=== PATIENT | male | born 1930 | race Caucasian/White ===

== ENCOUNTER 2019-05-29 03:50 | Inpatient (IN) | payer MEDICARE, MEDICAID ==
[~2019-05-29] VITALS: Ht 180.3 cm; Wt 90.7 kg
[2019-05-29] VITALS (19 sets, daily range): BP systolic 84–125; BP diastolic 39–75
[2019-05-29] MEDS ORDERED: Solu-MEDROL 125mg Inj IVP ONE (04:00)
--- NOTE | 2019-05-29 04:00 | NUR ---
ED Nurse Note: Pt brought in by RA from [facility] c/o SOB. As per EMS, pt is desaturating to 85% RA. Pt was placed on non rebreather mask 15L/min, O2 sat 97%. Pt has hx of COPD. Bilateral lungs are clear. Not in any distress. VSS. ERMD at bedside.
--- NOTE | 2019-05-29 04:00 | Emergency Room Report ---
History of Present Illness General Chief Complaint: Dyspnea/Respdistress Source: EMS Present Illness HPI Disclaimer: Please note that this report is being documented using [employer] technology. This can lead to erroneous entry secondary to incorrect interpretation by the dictating instrument. HPI: 88-year-old male with a history of severe dementia, COPD presents from alf facility for evaluation of hypoxia. On morning rounds he was found to be hypoxic with oxygen saturations in the low 80s. They report intermittent cough. No fevers were reported. Patient is nonverbal at baseline with severe dementia. EMS states he was somnolent en route. They gave him 1 breathing treatment without significant improvement. He does improve with additional oxygen to the low 90s. Accompanying paperwork states he is full code. PMH: Dementia, COPD PSH: Pacemaker Allergies: Codeine, Tylenol Social Hx: Unable to obtain Allergies: Coded Allergies: ACETAMINOPHEN (Verified Allergy, Unknown, 05/29/19) HYDROCODONE (Verified Allergy, Unknown, 05/29/19) Review of Systems All Other Systems: limited - Unable to obtain from patient due to clinical condition Physical Exam Vital Signs Date Time Temp Pulse Resp B/P (MAP) Pulse Ox O2 Delivery O2 Flow Rate FiO2 05/29/19 03:52 98.8 99 22 110/50 (70) 83 Room Air General: Somnolent. Arousable to noxious stimuli. Hypoxic on room air HEENT: NC/AT. Edentulous. Dry mucous membranes Chest wall: Pacemaker palpable in left chest wall. Cardiovascular: RRR. S1 and S2 normal. No murmur appreciated Resp: Mild tachypnea. Hypoxic at 83% on room air. Coarse crackles bilaterally. No wheezing. Abdomen: Abdomen is soft, nondistended. Nontender Skin: Intact. No abrasions, laceration or rash over the exposed skin. Surgical scars over the chest are clean dry and intact. MSK: Normal tone and bulk. Moving all extremities. No obvious deformity. Neuro: Somnolent. Arousable to noxious stimuli. GCS 9 - E2, V2, M5 Medical Decision Making Diagnostic Impression: Primary Impression: Respiratory failure with hypoxia Additional Impressions: AMOS (acute kidney injury) Elevated WBC count ER Course 88-year-old male presents from a alf facility for evaluation of hypoxia. Patient remains hypoxic on room air but improves with nonrebreather. Vital signs otherwise within normal limits and he is afebrile. Crackles bilaterally but no wheezes. He did receive 1 breathing treatment en route. Will give steroids and maintain on oxygen. Will send labs including blood gas. Will order antibiotics given the patient's COPD status. Patient will require admission. Laboratory Tests Test 05/29/19 04:08 05/29/19 04:24 05/29/19 04:44 Arterial Blood pH 7.470 (7.350-7.450) Arterial Blood Partial Pressure CO2 30.2 mmHg (35.0-45.0) L Arterial Blood Partial Pressure O2 120.3 mmHg (75.0-100.0) H Arterial Blood HCO3 21.6 mmol/L (22.0-26.0) L Arterial Blood Oxygen Saturation 98.5 % (95-100) Arterial Blood Base Excess -1.2 (-2-2) Fidel Test Positive White Blood Count 19.9 K/UL (4.8-10.8) H Red Blood Count 3.73 M/UL (4.70-6.10) L Hemoglobin 11.6 G/DL (14.2-18.0) L Hematocrit 34.5 % (42.0-52.0) L Mean Corpuscular Volume 92 FL (80-99) Mean Corpuscular Hemoglobin 31.2 PG (27.0-31.0) H Mean Corpuscular Hemoglobin Concent 33.7 G/DL (32.0-36.0) Red Cell Distribution Width 16.4 % (11.6-14.8) H Platelet Count 247 K/UL (150-450) Mean Platelet Volume 5.5 FL (6.5-10.1) L Neutrophils (%) (Auto) % (45.0-75.0) Lymphocytes (%) (Auto) % (20.0-45.0) Monocytes (%) (Auto) % (1.0-10.0) Eosinophils (%) (Auto) % (0.0-3.0) Basophils (%) (Auto) % (0.0-2.0) Differential Total Cells Counted 100 Neutrophils % (Manual) 80 % (45-75) H Lymphocytes % (Manual) 15 % (20-45) L Monocytes % (Manual) 5 % (1-10) Eosinophils % (Manual) 0 % (0-3) Basophils % (Manual) 0 % (0-2) Band Neutrophils 0 % (0-8) Platelet Estimate Adequate Platelet Morphology Normal Sodium Level 140 MMOL/L (136-145) Potassium Level 4.5 MMOL/L (3.5-5.1) Chloride Level 105 MMOL/L (98-107) Carbon Dioxide Level 29 MMOL/L (21-32) Anion Gap 6 mmol/L (5-15) Blood Urea Nitrogen 39 mg/dL (7-18) H Creatinine 2.8 MG/DL (0.55-1.30) H Estimate Glomerular Filtration Rate 21.4 mL/min (>60) Glucose Level 127 MG/DL (74-106) H Calcium Level 8.8 MG/DL (8.5-10.1) Total Bilirubin 0.5 MG/DL (0.2-1.0) Aspartate Amino Transferase (AST) 21 U/L (15-37) Alanine Aminotransferase (ALT) 19 U/L (12-78) Alkaline Phosphatase 104 U/L (46-116) Troponin I 0.066 ng/mL (0.000-0.056) Pro-B-Type Natriuretic Peptide 2241 pg/mL (0-125) H Total Protein 7.1 G/DL (6.4-8.2) Albumin 2.3 G/DL (3.4-5.0) L Globulin 4.8 g/dL Albumin/Globulin Ratio 0.5 (1.0-2.7) L Urine Color Yellow Urine Appearance Clear Urine pH 5 (4.5-8.0) Urine Specific [place] 1.020 (1.005-1.035) Urine Protein 2+ (NEGATIVE) H Urine Glucose (UA) Negative (NEGATIVE) Urine Ketones 1+ (NEGATIVE) H Urine Blood 1+ (NEGATIVE) H Urine Nitrite Negative (NEGATIVE) Urine Bilirubin 1+ (NEGATIVE) H Urine Ictotest Negative (NEGATIVE) Urine Urobilinogen Normal MG/DL (0.0-1.0) Urine Leukocyte Esterase Negative (NEGATIVE) Urine RBC 0-2 /HPF (0 - 0) H Urine WBC 0 /HPF (0 - 0) Urine Squamous Epithelial Cells Few /LPF (NONE/OCC) Urine Bacteria None /HPF (NONE) Microbiology Date/Time Source Procedure Growth Status 05/29/19 04:24 Nasal Nares - Final Complete 05/29/19 04:24 Nasal Nares - Final Complete EKG Diagnostic Results EKG Time: 04:01 Rate: normal Rhythm: NSR Other Impression Sinus rhythm, left axis deviation, interventricular conduction delay. There are inverted T waves in the anterior and lateral leads. No obvious ST segment changes Rhythm Strip Diag. Results Rhythm Strip Time: 04:01 EP Interpretation: yes Rate: 80s Rhythm: NSR, no PVC's, no ectopy Chest X-Ray Diagnostic Results Chest X-Ray Diagnostic Results : Chest X-Ray Ordered: Yes # of Views/Limited/Complete: 1 View Indication: Shortness of Breath EP Interpretation: Yes Interpretation: other - Evidence of prior sternotomy. No obvious infiltrate. Difficult to fully assess the left costophrenic angle. Pacemaker in place. Impression: Other - No obvious infiltrate. Electronically Signed by: Electronically signed by Dr. Bulmaro Springer Reevaluation Time: 05:13 Last Vital Signs Date Time Temp Pulse Resp B/P (MAP) Pulse Ox O2 Delivery O2 Flow Rate FiO2 05/29/19 03:52 98.8 99 22 110/50 (70) 83 Room Air Reevaluation Impression Labs show elevated white count with neutrophil predominance. Antibiotics ordered. Blood gas shows hypoxemia. Will decrease oxygen flow. PCO2 low. No acidosis. Chemistry consistent with acute kidney injury. Troponin slightly above upper limit of normal at 0.06. EKG shows diffuse T wave inversions but no ST segment elevation. We will continue to trend. Will admit the patient to telemetry. Disposition: ADMITTED INPATIENT Condition: Serious Bulmaro Springer MD May 29, 2019 04:00
--- NOTE | 2019-05-29 04:05 | NUR ---
ED Nurse Note: IV line established. Blood specimen collected and sent to lab.
--- NOTE | 2019-05-29 04:11 | NUR ---
ED Nurse Note: Xray at bedside.
--- NOTE | 2019-05-29 04:28 | NUR ---
ED Nurse Note: Urine specimen collected and sent to lab.
[2019-05-29 04:30] LABS: HEMATOCRIT 34.5 % (42.0-52.0); HEMOGLOBIN 11.6 G/DL (14.2-18.0); MEAN CORPUSCULAR VOLUME 92 FL (80-99); PLATELET COUNT 247 K/UL (150-450); RED BLOOD COUNT 3.73 M/UL (4.70-6.10); RED CELL DISTRIBUTION WIDTH 16.4 % (11.6-14.8); WHITE BLOOD COUNT 19.9 K/UL (4.8-10.8)
[2019-05-29 04:44] LABS: ANION GAP 6 mmol/L (5-15); BLOOD UREA NITROGEN 39 mg/dL (7-18); CALCIUM 8.8 MG/DL (8.5-10.1); CARBON DIOXIDE 29 MMOL/L (21-32); CHLORIDE 105 MMOL/L (98-107); CREATININE 2.8 MG/DL (0.55-1.30); POTASSIUM 4.5 MMOL/L (3.5-5.1); SODIUM 140 MMOL/L (136-145)
[2019-05-29] MEDS ORDERED: B COMPLEX1 EACH ORAL (04:56)
[2019-05-29] MEDS ORDERED: LIPITOR20 MG ORAL (04:56)
[2019-05-29] MEDS ORDERED: PLAVIX75 MG ORAL (04:56)
[2019-05-29] MEDS ORDERED: LUMIGAN2.5 ML BOTH EYES (04:56)
[2019-05-29] MEDS ORDERED: FLOMAX0.4 MG ORAL (04:56)
[2019-05-29] MEDS ORDERED: LOSARTAN POTASS50 MG ORAL (04:56)
[2019-05-29] MEDS ORDERED: DEPAKOTE250 MG PO (04:56)
[2019-05-29] MEDS ORDERED: ACTOS15 MG ORAL (04:56)
[2019-05-29] MEDS ORDERED: IPRATROPIU0.2 MG/1 M HHN (04:56)
[2019-05-29] MEDS ORDERED: DOCUSATE SODIU100 MG ORAL (04:56)
[2019-05-29] MEDS ORDERED: VASCEPA1 GM PO (04:56)
[2019-05-29] MEDS ORDERED: METOPROLOL TART25 MG ORAL (04:56)
[2019-05-29] MEDS ORDERED: INCRUSE ELLI62.5 MCG IH (04:56)
[2019-05-29] MEDS ORDERED: TRADJENTA5 MG PO (04:56)
[2019-05-29] MEDS ORDERED: VITAMIN D-32000 UNI2 PO (04:56)
[2019-05-29] MEDS ORDERED: FERROUS SULFAT325 MG ORAL (04:56)
[2019-05-29] MEDS ORDERED: DONEPEZIL HCL10 M2 ORAL (04:56)
[2019-05-29] MEDS ORDERED: LIDODERM700 M1 TOPIC (04:56)
[2019-05-29] MEDS ORDERED: MELATONIN5 M5 ORAL (04:56)
[2019-05-29 04:57] LABS: ALANINE AMINOTRANSFERASE 19 U/L (12-78); ALBUMIN 2.3 G/DL (3.4-5.0); ALBUMIN/GLOBULIN RATIO 0.5 (1.0-2.7); ALKALINE PHOSPHATASE 104 U/L (46-116); ASPARTATE AMINO TRANSFERASE 21 U/L (15-37); BILIRUBIN,TOTAL 0.5 MG/DL (0.2-1.0)
[2019-05-29 05:11] LABS: APPEARANCE,URINE CLEAR; BILIRUBIN, URINE 1+ (NEGATIVE); GLUCOSE, URINE (UA) NEGATIVE (NEGATIVE); KETONES,URINE 1+ (NEGATIVE); LEUKOCYTE ESTERASE ,URINE NEGATIVE (NEGATIVE); NITRITE,URINE NEGATIVE (NEGATIVE); PH,URINE 5 (4.5-8.0); PROTEIN,URINE 2+ (NEGATIVE); UROBILINOGEN,URINE NORMAL MG/DL (0.0-1.0)
[2019-05-29 05:14] LABS: COLOR,URINE YELLOW
[2019-05-29] MEDS ORDERED: Azithromycin 500 MG in NS 275 ML IV ONE (05:15)
[2019-05-29] MEDS ORDERED: cefTRIAXone 1 GM in NS 55 ML IVPB ONE (05:15)
[2019-05-29] MEDS ORDERED: Azithromycin 500mg Inj IV ONE (05:31)
--- NOTE | 2019-05-29 05:53 | NUR ---
ER Nurse Note: Contact information: serafin Pizarro,
[2019-05-29] MEDS ORDERED: LORazepam Inj 2mg/ml 1ml IV ONE (06:00)
[2019-05-29] MEDS ORDERED: LORazepam Inj 2mg/ml 1ml ONE (06:10)
--- NOTE | 2019-05-29 07:57 | NUR ---
ED Nurse Note: Report given to Nereida RN, endorsed all plan of care to Yasmine POLLOCK.
--- NOTE | 2019-05-29 08:05 | NUR ---
TRANSFER TO FLOOR: Patient transferred to TELEMETRY as ordered, per Dr. Muniz. Report given to Nereida RN. Belonging list and medication list given to receiving RN. Family and or S/O informed of transfer.
--- NOTE | 2019-05-29 08:30 | NUR ---
NURSE NOTES: Received report from Stephanie Fernandes. PAtient arrived to the floor @0800 transported via gurney with 2 Staff. PAtient is very lethargic arousable to Deep pain only. Mouth breathing with simple mask at 7 L/min. Noted with scattered ronchi/crackles all throughout. radiation monitor place. Vital signs obtained SBP low 90's. Patient positioned for comfort and call placed to DR. Muniz. Fall precautions in place.
--- NOTE | 2019-05-29 09:05 | General Progress Note ---
Subjective Date patient seen: May 29, 2019 Time patient seen: 08:40 Allergies: Coded Allergies: ACETAMINOPHEN (Verified Allergy, Unknown, 05/29/19) HYDROCODONE (Verified Allergy, Unknown, 05/29/19) Subjective Full dictation to follow. Objective Last 24 Hour Vital Signs Date Time Temp Pulse Resp B/P (MAP) Pulse Ox O2 Delivery O2 Flow Rate FiO2 05/29/19 08:05 98.5 79 21 112/54 98 Simple Mask 7.0 05/29/19 07:30 98.5 79 20 112/54 98 Simple Mask 7.0 05/29/19 06:39 98.5 78 20 109/44 100 Simple Mask 15.0 05/29/19 04:00 99.1 99 22 110/50 97 Non-Rebreather 15.0 05/29/19 04:00 99 22 Non-Rebreather 15.0 05/29/19 03:52 98.8 99 22 110/50 (70) 83 Room Air Intake and Output 05/28/19 05/29/19 19:00 07:00 Intake Total 2660 ml Balance 2660 ml Intake IV Total 2660 ml # Voids 1 Laboratory Tests 05/29/19 04:08: Arterial Blood pH 7.470H, Arterial Blood Partial Pressure CO2 30.2L, Arterial Blood Partial Pressure O2 120.3H, Arterial Blood HCO3 21.6L, Arterial Blood Oxygen Saturation 98.5, Arterial Blood Base Excess -1.2, Fidel Test Positive 05/29/19 04:24: White Blood Count 19.9H, Red Blood Count 3.73L, Hemoglobin 11.6L, Hematocrit 34.5L, Mean Corpuscular Volume 92, Mean Corpuscular Hemoglobin 31.2H, Mean Corpuscular Hemoglobin Concent 33.7, Red Cell Distribution Width 16.4H, Platelet Count 247, Mean Platelet Volume 5.5L, Neutrophils (%) (Auto) , Lymphocytes (%) (Auto) , Monocytes (%) (Auto) , Eosinophils (%) (Auto) , Basophils (%) (Auto) , Differential Total Cells Counted 100, Neutrophils % ( Manual) 80H, Lymphocytes % (Manual) 15L, Monocytes % (Manual) 5, Eosinophils % ( Manual) 0, Basophils % (Manual) 0, Band Neutrophils 0, Platelet Estimate Adequate, Platelet Morphology Normal, Sodium Level 140, Potassium Level 4.5, Chloride Level 105, Carbon Dioxide Level 29, Anion Gap 6, Blood Urea Nitrogen 39H, Creatinine 2.8H, Estimat Glomerular Filtration Rate 21.4, Glucose Level 127H, Calcium Level 8.8, Total Bilirubin 0.5, Aspartate Amino Transf (AST/SGOT) 21, Alanine Aminotransferase (ALT/SGPT) 19, Alkaline Phosphatase 104, Troponin I 0.066H, Pro-B-Type Natriuretic Peptide 2241H, Total Protein 7.1, Albumin 2.3L , Globulin 4.8, Albumin/Globulin Ratio 0.5L 05/29/19 04:44: Urine Color Yellow, Urine Appearance Clear, Urine pH 5, Urine Specific [place] 1.020, Urine Protein 2+H, Urine Glucose (UA) Negative, Urine Ketones 1+H, Urine Blood 1+H, Urine Nitrite Negative, Urine Bilirubin 1+H, Urine Ictotest Negative , Urine Urobilinogen Normal, Urine Leukocyte Esterase Negative, Urine RBC 0-2H, Urine WBC 0, Urine Squamous Epithelial Cells Few, Urine Bacteria None Height (Feet): 5 Height (Inches): 11.00 Weight (Pounds): 200 Ronaldo Muniz MD May 29, 2019 09:05
--- NOTE | 2019-05-29 09:30 | NUR ---
NURSE NOTES: Dr. Muniz in to see patient admission orders obtained and carried out. Md aware patient mental status and stated it moght be due to the ativan that he received from ER. 250ml saline bolus given as ordered by .
--- NOTE | 2019-05-29 09:41 | Cardiac Electrophysiology PN ---
Subjective Subjective [id number] Objective Last 24 Hour Vital Signs Date Time Temp Pulse Resp B/P (MAP) Pulse Ox O2 Delivery O2 Flow Rate FiO2 05/29/19 08:05 98.5 79 21 112/54 98 Simple Mask 7.0 05/29/19 07:30 98.5 79 20 112/54 98 Simple Mask 7.0 05/29/19 06:39 98.5 78 20 109/44 100 Simple Mask 15.0 05/29/19 04:00 99.1 99 22 110/50 97 Non-Rebreather 15.0 05/29/19 04:00 99 22 Non-Rebreather 15.0 05/29/19 03:52 98.8 99 22 110/50 (70) 83 Room Air Intake and Output 05/28/19 05/29/19 19:00 07:00 Intake Total 2660 ml Balance 2660 ml Intake IV Total 2660 ml # Voids 1 Laboratory Tests Test 05/29/19 04:08 05/29/19 04:24 05/29/19 04:44 Arterial Blood pH 7.470 (7.350-7.450) Arterial Blood Partial Pressure CO2 30.2 mmHg (35.0-45.0) L Arterial Blood Partial Pressure O2 120.3 mmHg (75.0-100.0) H Arterial Blood HCO3 21.6 mmol/L (22.0-26.0) L Arterial Blood Oxygen Saturation 98.5 % (95-100) Arterial Blood Base Excess -1.2 (-2-2) Fidel Test Positive White Blood Count 19.9 K/UL (4.8-10.8) H Red Blood Count 3.73 M/UL (4.70-6.10) L Hemoglobin 11.6 G/DL (14.2-18.0) L Hematocrit 34.5 % (42.0-52.0) L Mean Corpuscular Volume 92 FL (80-99) Mean Corpuscular Hemoglobin 31.2 PG (27.0-31.0) H Mean Corpuscular Hemoglobin Concent 33.7 G/DL (32.0-36.0) Red Cell Distribution Width 16.4 % (11.6-14.8) H Platelet Count 247 K/UL (150-450) Mean Platelet Volume 5.5 FL (6.5-10.1) L Neutrophils (%) (Auto) % (45.0-75.0) Lymphocytes (%) (Auto) % (20.0-45.0) Monocytes (%) (Auto) % (1.0-10.0) Eosinophils (%) (Auto) % (0.0-3.0) Basophils (%) (Auto) % (0.0-2.0) Differential Total Cells Counted 100 Neutrophils % (Manual) 80 % (45-75) H Lymphocytes % (Manual) 15 % (20-45) L Monocytes % (Manual) 5 % (1-10) Eosinophils % (Manual) 0 % (0-3) Basophils % (Manual) 0 % (0-2) Band Neutrophils 0 % (0-8) Platelet Estimate Adequate Platelet Morphology Normal Sodium Level 140 MMOL/L (136-145) Potassium Level 4.5 MMOL/L (3.5-5.1) Chloride Level 105 MMOL/L (98-107) Carbon Dioxide Level 29 MMOL/L (21-32) Anion Gap 6 mmol/L (5-15) Blood Urea Nitrogen 39 mg/dL (7-18) H Creatinine 2.8 MG/DL (0.55-1.30) H Estimat Glomerular Filtration Rate 21.4 mL/min (>60) Glucose Level 127 MG/DL (74-106) H Calcium Level 8.8 MG/DL (8.5-10.1) Total Bilirubin 0.5 MG/DL (0.2-1.0) Aspartate Amino Transf (AST/SGOT) 21 U/L (15-37) Alanine Aminotransferase (ALT/SGPT) 19 U/L (12-78) Alkaline Phosphatase 104 U/L (46-116) Troponin I 0.066 ng/mL (0.000-0.056) Pro-B-Type Natriuretic Peptide 2241 pg/mL (0-125) H Total Protein 7.1 G/DL (6.4-8.2) Albumin 2.3 G/DL (3.4-5.0) L Globulin 4.8 g/dL Albumin/Globulin Ratio 0.5 (1.0-2.7) L Urine Color Yellow Urine Appearance Clear Urine pH 5 (4.5-8.0) Urine Specific [place] 1.020 (1.005-1.035) Urine Protein 2+ (NEGATIVE) H Urine Glucose (UA) Negative (NEGATIVE) Urine Ketones 1+ (NEGATIVE) H Urine Blood 1+ (NEGATIVE) H Urine Nitrite Negative (NEGATIVE) Urine Bilirubin 1+ (NEGATIVE) H Urine Ictotest Negative (NEGATIVE) Urine Urobilinogen Normal MG/DL (0.0-1.0) Urine Leukocyte Esterase Negative (NEGATIVE) Urine RBC 0-2 /HPF (0 - 0) H Urine WBC 0 /HPF (0 - 0) Urine Squamous Epithelial Cells Few /LPF (NONE/OCC) Urine Bacteria None /HPF (NONE) Microbiology Date/Time Source Procedure Growth Status 05/29/19 04:24 Nasal Nares - Final Complete 05/29/19 04:24 Nasal Nares - Final Complete 05/29/19 04:00 Rectum Received Sunny Cunningham MD May 29, 2019 09:40
[2019-05-29] MEDS ORDERED: Ipratropium 0.02% Inh Soln 2.5ml UD HHN PRN (10:00)
[2019-05-29] MEDS: Heparin 5000 units/ml inj SUBQ SCH ×2 (10:09→21:34)
--- NOTE | 2019-05-29 10:20 | NUR ---
NURSE NOTES: Dr. Cunningham seen patient aware patients B/P new ordered obned to give addiotional dose of 500 ml IV bolus of saline. B/p Improving. Will follow.
[2019-05-29] MEDS: NovoLOG Insulin Flexpen SUBQ SCH ×3 (11:30→21:00)
--- NOTE | 2019-05-29 12:22 | Diagnostic Imaging Report ---
Indication: Shortness of breath Technique: One view of the chest Comparison: none Findings: There is a left chest pacemaker. There are median sternotomy sutures. The left lateral hemidiaphragm is obscured. The heart is upper limits normal in size. Area of sclerosis is seen in the proximal right humerus. Impression: The posterior left lateral hemidiaphragm, parenchymal and/or pleural disease of the left lung base possible. No acute process otherwise Sclerotic lesion of the proximal humerus, most likely a bone island, less likely osteoblastic metastasis
--- NOTE | 2019-05-29 12:25 | NUR ---
CASE MANAGEMENT:REVIEW 88YR OLD MALE BIBA FROM [facility] CC: SOB. SI: RESPIRATORY FAILURE. AMOS 99.1 99 22 109/44 83% ON RA WBC+19.9 BUN+39 CR+2.8 TROPONIN(+) 0.066 IS: PLACED ON NON REBREATHER IV SOLUMEDROL 1L NS BOLUS IV ROCEPHIN IV ATIVAN CHEST XRAY : TO TELEMETRY DCP: FROM [facility] interqual criteria met
--- NOTE | 2019-05-29 12:30 | NUR ---
NURSE NOTES: Dr. Rich in to see patient. order received STAT ABG. resulted messaged left to MD. Will monitor
[2019-05-29 12:59] LABS: HEMATOCRIT 32.3 % (42.0-52.0); HEMOGLOBIN 10.2 G/DL (14.2-18.0); MEAN CORPUSCULAR VOLUME 94 FL (80-99); PLATELET COUNT 174 K/UL (150-450); RED BLOOD COUNT 3.44 M/UL (4.70-6.10); RED CELL DISTRIBUTION WIDTH 16.8 % (11.6-14.8); WHITE BLOOD COUNT 13.2 K/UL (4.8-10.8)
[2019-05-29] MEDS: Albuterol/Ipratropium 3ml neb HHN SCH ×2 (13:00→19:19)
[2019-05-29] MEDS: Docusate 100mg cap ORAL SCH ×2 (13:00→18:00)
--- NOTE | 2019-05-29 13:18 | Infectious Diseases Prog Note ---
Assessment/Plan Problems: (1) COPD (chronic obstructive pulmonary disease) Assessment & Plan: with exacerbation , will upgrade his antibiotics to zosyn and zyvox and stop ceftriaxone and zithromax empirically , send sputum culture (2) Leukocytosis Assessment & Plan: possible sepsis . on ceftriaxone and zithromax will upgrade his antibiotics to zosyn and zyvox pending blood culture (3) AMOS (acute kidney injury) Assessment & Plan: continue hydration, with close monitoring of renal function , avoid nephrotoxics (4) Respiratory failure with hypoxia Assessment & Plan: suspect due to the above, will order V/Q scan to rule out PE as an etiology , and CT chest to rule out lungs pathology , recommend pulmonary eval Subjective Allergies: Coded Allergies: ACETAMINOPHEN (Verified Allergy, Unknown, 05/29/19) HYDROCODONE (Verified Allergy, Unknown, 05/29/19) Objective Vital Signs Last 24 Hour Vital Signs Date Time Temp Pulse Resp B/P (MAP) Pulse Ox O2 Delivery O2 Flow Rate FiO2 05/29/19 12:00 8.0 05/29/19 08:05 98.5 79 21 112/54 98 Simple Mask 7.0 05/29/19 08:00 Simple Mask 8.0 05/29/19 07:30 98.5 79 20 112/54 98 Simple Mask 7.0 05/29/19 06:39 98.5 78 20 109/44 100 Simple Mask 15.0 05/29/19 04:00 99.1 99 22 110/50 97 Non-Rebreather 15.0 05/29/19 04:00 99 22 Non-Rebreather 15.0 05/29/19 03:52 98.8 99 22 110/50 (70) 83 Room Air Height (Feet): 5 Height (Inches): 11.00 Weight (Pounds): 200 Microbiology Date/Time Source Procedure Growth Status 05/29/19 04:24 Nasal Nares - Final Complete 05/29/19 04:24 Nasal Nares - Final Complete 05/29/19 04:00 Rectum Received Laboratory Tests Test 05/29/19 04:08 05/29/19 04:24 05/29/19 04:44 05/29/19 12:12 Arterial Blood pH 7.470 (7.350-7.450) 7.331 (7.350-7.450) Arterial Blood Partial Pressure CO2 30.2 mmHg (35.0-45.0) L 39.6 mmHg (35.0-45.0) Arterial Blood Partial Pressure O2 120.3 mmHg (75.0-100.0) H 49.6 mmHg (75.0-100.0) Arterial Blood HCO3 21.6 mmol/L (22.0-26.0) L 20.5 mmol/L (22.0-26.0) L Arterial Blood Oxygen Saturation 98.5 % (95-100) 82.5 % (95-100) *L Arterial Blood Base Excess -1.2 (-2-2) -5.0 (-2-2) L Fidel Test Positive Positive White Blood Count 19.9 K/UL (4.8-10.8) H Red Blood Count 3.73 M/UL (4.70-6.10) L Hemoglobin 11.6 G/DL (14.2-18.0) L Hematocrit 34.5 % (42.0-52.0) L Mean Corpuscular Volume 92 FL (80-99) Mean Corpuscular Hemoglobin 31.2 PG (27.0-31.0) H Mean Corpuscular Hemoglobin Concent 33.7 G/DL (32.0-36.0) Red Cell Distribution Width 16.4 % (11.6-14.8) H Platelet Count 247 K/UL (150-450) Mean Platelet Volume 5.5 FL (6.5-10.1) L Neutrophils (%) (Auto) % (45.0-75.0) Lymphocytes (%) (Auto) % (20.0-45.0) Monocytes (%) (Auto) % (1.0-10.0) Eosinophils (%) (Auto) % (0.0-3.0) Basophils (%) (Auto) % (0.0-2.0) Differential Total Cells Counted 100 Neutrophils % (Manual) 80 % (45-75) H Lymphocytes % (Manual) 15 % (20-45) L Monocytes % (Manual) 5 % (1-10) Eosinophils % (Manual) 0 % (0-3) Basophils % (Manual) 0 % (0-2) Band Neutrophils 0 % (0-8) Platelet Estimate Adequate Platelet Morphology Normal Sodium Level 140 MMOL/L (136-145) Potassium Level 4.5 MMOL/L (3.5-5.1) Chloride Level 105 MMOL/L (98-107) Carbon Dioxide Level 29 MMOL/L (21-32) Anion Gap 6 mmol/L (5-15) Blood Urea Nitrogen 39 mg/dL (7-18) H Creatinine 2.8 MG/DL (0.55-1.30) H Estimat Glomerular Filtration Rate 21.4 mL/min (>60) Glucose Level 127 MG/DL (74-106) H Calcium Level 8.8 MG/DL (8.5-10.1) Total Bilirubin 0.5 MG/DL (0.2-1.0) Aspartate Amino Transf (AST/SGOT) 21 U/L (15-37) Alanine Aminotransferase (ALT/SGPT) 19 U/L (12-78) Alkaline Phosphatase 104 U/L (46-116) Troponin I 0.066 ng/mL (0.000-0.056) Pro-B-Type Natriuretic Peptide 2241 pg/mL (0-125) H Total Protein 7.1 G/DL (6.4-8.2) Albumin 2.3 G/DL (3.4-5.0) L Globulin 4.8 g/dL Albumin/Globulin Ratio 0.5 (1.0-2.7) L Urine Color Yellow Urine Appearance Clear Urine pH 5 (4.5-8.0) Urine Specific [place] 1.020 (1.005-1.035) Urine Protein 2+ (NEGATIVE) H Urine Glucose (UA) Negative (NEGATIVE) Urine Ketones 1+ (NEGATIVE) H Urine Blood 1+ (NEGATIVE) H Urine Nitrite Negative (NEGATIVE) Urine Bilirubin 1+ (NEGATIVE) H Urine Ictotest Negative (NEGATIVE) Urine Urobilinogen Normal MG/DL (0.0-1.0) Urine Leukocyte Esterase Negative (NEGATIVE) Urine RBC 0-2 /HPF (0 - 0) H Urine WBC 0 /HPF (0 - 0) Urine Squamous Epithelial Cells Few /LPF (NONE/OCC) Urine Bacteria None /HPF (NONE) Test 05/29/19 12:15 White Blood Count Pending Red Blood Count Pending Hemoglobin Pending Hematocrit Pending Mean Corpuscular Volume Pending Mean Corpuscular Hemoglobin Pending Mean Corpuscular Hemoglobin Concent Pending Red Cell Distribution Width Pending Platelet Count Pending Mean Platelet Volume Pending Neutrophils (%) (Auto) Pending Lymphocytes (%) (Auto) Pending Monocytes (%) (Auto) Pending Eosinophils (%) (Auto) Pending Basophils (%) (Auto) Pending Sodium Level Pending Potassium Level Pending Chloride Level Pending Carbon Dioxide Level Pending Blood Urea Nitrogen Pending Creatinine Pending Estimat Glomerular Filtration Rate Pending Glucose Level Pending Calcium Level Pending Troponin I Pending Pro-B-Type Natriuretic Peptide Pending Current Medications Medications (Trade) Dose Ordered Sig/Elizabeth Route PRN Reason Start Time Stop Time Status Last Admin Dose Admin Albuterol/ Ipratropium (Albuterol/ Ipratropium) 3 ml Q6HRT HHN 05/29/19 13:00 06/03/19 12:59 Aspirin (ASA) 81 mg DAILY ORAL 05/30/19 09:00 06/29/19 08:59 Atorvastatin Calcium (Lipitor) 20 mg BEDTIME ORAL 05/29/19 21:00 06/28/19 20:59 Azithromycin 500 mg/Dextrose 275 ml @ 275 mls/hr Q24HRS IV 05/30/19 09:00 06/05/19 09:59 Ceftriaxone Sodium 1 gm/ Dextrose 55 ml @ 110 mls/hr Q24H IVPB 05/30/19 08:00 06/06/19 07:59 Clopidogrel Bisulfate (Plavix) 75 mg DAILY ORAL 05/30/19 09:00 06/29/19 08:59 Dextrose (Dextrose 50%) 25 ml Q30M PRN IV Hypoglycemia 05/29/19 08:45 06/28/19 08:44 Dextrose (Dextrose 50%) 50 ml Q30M PRN IV Hypoglycemia 05/29/19 08:45 06/28/19 08:44 Divalproex Sodium (Depakote Sprinkles) 125 mg BID ORAL 05/29/19 18:00 06/28/19 17:59 Docusate Sodium (Colace) 100 mg THREE TIMES A DAY ORAL 05/29/19 13:00 06/28/19 12:59 Donepezil HCl (Aricept) 10 mg DAILY ORAL 05/30/19 09:00 06/29/19 08:59 Heparin Sodium (Porcine) (Heparin 5000 units/ml) 5,000 units EVERY 12 HOURS SUBQ 05/29/19 09:00 06/28/19 08:59 05/29/19 10:09 Insulin Aspart (NovoLOG) BEFORE MEALS AND HS SUBQ 05/29/19 11:30 06/28/19 11:29 Ipratropium [place] (Atrovent) 500 mcg Q6H PRN HHN Shortness of Breath 05/29/19 10:00 06/03/19 09:59 Lidocaine (Lidoderm 5% PATCH) 1 patch DAILY TDERMAL 05/30/19 09:00 06/29/19 08:59 Methylprednisolone Sodium Succinate (Solu-MEDROL) 40 mg EVERY 12 HOURS IVP 05/29/19 21:00 06/28/19 20:59 Metoprolol Tartrate (Lopressor) 25 mg EVERY 12 HOURS ORAL 05/29/19 21:00 06/28/19 20:59 Sodium Chloride 1,000 ml @ 50 mls/hr Q20H IV 05/29/19 12:00 06/28/19 11:59 05/29/19 12:17 Tamsulosin HCl (Flomax) 0.4 mg DAILY ORAL 05/30/19 09:00 06/29/19 08:59 Melina Jones M.D. May 29, 2019 13:18
--- NOTE | 2019-05-29 13:22 | NUR ---
NURSE NOTES: Dr. Dunham aware of ABG results. NO new orders. PAtient remains on simple mask @ 8L now O2 sat 94%
[2019-05-29 13:25] LABS: ANION GAP 9 mmol/L (5-15); BLOOD UREA NITROGEN 43 mg/dL (7-18); CALCIUM 8.3 MG/DL (8.5-10.1); CARBON DIOXIDE 23 MMOL/L (21-32); CHLORIDE 108 MMOL/L (98-107); CREATININE 2.2 MG/DL (0.55-1.30); POTASSIUM 4.4 MMOL/L (3.5-5.1); SODIUM 140 MMOL/L (136-145)
--- NOTE | 2019-05-29 13:34 | NUR ---
Spoke with charge preparation technician Evelyn regarding V/Q scan. At this time, pt is unable to tolerate scan.
--- NOTE | 2019-05-29 16:12 | NUR ---
ST NOTES: REFERRED FOR SWALLOW EVAL BY DR GOODMAN, SEE REPORT. DYSPHAGIA RISK FACTORS FOR THIS ADVANCED AGED 88 Y.O.M.: ACUTE ISSUES: AMS, RESP FAILURE AND DISTRESS WITH HYPOXIA (SATS TO LOW 80s) AND PLACED ON NON-REBREATHER, NOW ON SIMPLE MASK WITH RESP RATE OF 20 BPM, SP02 98%, ON 8 LITERS OF 02, LUNGS HAVE CRACKLES AND BILATERAL WHEEZE AND HAS INTERMITTENT COUGH AND CXR NEG FOR ACUTE PROCESS, ALBUMIN LOW 3.0, AMOS H/O DYSPHAGIA, SEVERE DEMENTIA (NONVERBAL) FROM ALZHEIMER'S DZ, COPD, RECENT MEDS FOR PNA AND PAROTITIS (05/17/19), PSYCH MEDS DEPAKOTE FOR LABILE MOOD, DM2, PVD, AK/CARDIAC PACEMAKER, HTN. AT SNF ON A FORTIFIED PUREED AND NECTAR THICK LIQUID DIET (NO STRAW)ADN SEEN BY FOR DYSPHAGIA MANAGEMENT AND TX. PER POLST OK TO HAVE DESK MANAGER TUBE FEEDINGS IF NEEDS. PATIENT IS NOW NPO EXCEPT ICE CHIPS AND MEDS (NOT GIVEN) INITIAL IMPRESSIONS NOT ALERT FOR PO TRIALS NOR MEALS AND MOUTH BREATHING WITH SIMPLE MASK NO NEED FOR ORAL SUCTION AT THIS TIME HIGH RISK FOR PERSISTENT OR WORSENED OROPHARYNGEAL DYSPHAGIA HIGH RISK FOR SILENT ASPIRATION GIVEN ALZHEIMER'S DZ DEMENTIA DX RECOMMENDATIONS GIVEN HIS POLST STATES OK TO HAVE TUBE FEEDINGS, CONSIDER TEMPORARY NONORAL FEEDINGS FOR MEDS AND FORMULA PER RD (QUANG ARCE. ORAL CARE PRN WILL COMPLETE MODIFIED BARIUM SWALLOW STUDY WHEN READY TO ASSESS SWALLOW, DETERMINE SILENT ASPIRATION RISK/ETIOLOGY, AND ATTEMPT TRIAL TX AND FOR LIKELY ORAL GRAT AND COMFORT FEEDING SINCE HE HAS SEVERE DEMENTIA. SKILLED DYSPHAGIA MANAGEMENT AND TX AND COG-COM EVAL/TX (BASELINE NONVERBAL). EDUCATED/TRAINED RN IN POSTED ORAL CARE AND ASP PREC FOR TUBE FEEDINGS WHEN RUNNING.
--- NOTE | 2019-05-29 16:15 | Consultation ---
DATE OF CONSULTATION: 05/29/2019 CARDIOLOGY CONSULTATION CONSULTING PHYSICIAN: Sunny Cunningham M.D. REFERRING PHYSICIAN: Ronaldo Muniz M.D. REASON FOR CONSULTATION: Elevated troponin in a patient with history of coronary artery bypass graft as well as evaluation of the patient's pacemaker. HISTORY OF PRESENT ILLNESS: The patient is a 88-year-old [place]ian gentleman with severe dementia who is a penitentiary patient as well as history of COPD and history of coronary artery bypass graft more than 20 years ago as well as history of pacemaker placement in the past who was brought in from nursing facility for hypoxemia. The patient's saturation was in the low 80s and the patient had intermittent cough. The patient is nonverbal at baseline due to severe dementia. The patient was admitted. His troponin turned out to be become positive and a Cardiology consultation was obtained for further evaluation. At the time of my evaluation, the patient is nonverbal. The son is at the bedside, is not able to provide any information. REVIEW OF SYSTEMS: Cannot be obtained due to severe dementia. PAST MEDICAL HISTORY: As mentioned above. FAMILY HISTORY: Noncontributory. SOCIAL HISTORY: He lives in penitentiary. Does not smoke or drink alcohol. PHYSICAL EXAMINATION: VITAL SIGNS: Blood pressure 112/54, pulse 79, respirations 20, temperature 98.5. HEAD AND NECK: Shows no JVD. LUNGS: Coarse rhonchi. CARDIOVASCULAR: Regular S1 and S2 with no gallop or murmur. ABDOMEN: Soft. EXTREMITIES: No pitting edema. His pacemaker is in left subclavian and sternotomy scar is intact. LABORATORY AND DIAGNOSTIC DATA: His labs show sodium 140, potassium 4.5, BUN of 39, creatinine 2.8, and glucose 127. Troponin is 0.066. BNP is 2241. White count is 19.9, hemoglobin is 11.7, hematocrit 34.5, platelet count of 247. EKG shows sinus rhythm with complete right bundle-branch block and left anterior fascicular block, old inferior wall infarct. ASSESSMENT AND PLAN: 1. Non-ST elevation myocardial infarction likely type 2 in view of the patient's renal failure. This is likely due to demand ischemia in view of patient's sepsis, white count of 20,000. The patient also has renal failure with creatinine of 2.8. We will completely rule out myocardial infarction protocol, get an echocardiogram, and repeat EKG. At this time, we will treat the patient medically with aspirin, beta-ana, and statin. 2. Status post pacemaker. We will have to find out the brand as the son does not know the brand of the pacemaker and the patient is nonverbal. 3. Sepsis, COPD, pneumonia. The patient is on ceftriaxone, azithromycin. 4. Advanced dementia. Thank you very much, Dr. Muniz, for allowing me to participate in the care of this patient. Please do not hesitate to contact me for any questions regarding my evaluation. Sincerely, Sunny Cunningham M.D. DR: Angel Luis JOB#: [id number] CC:
--- NOTE | 2019-05-29 17:00 | NUR ---
NURSE NOTES: Dr. Marks made aware of ST recommendations to insert NGT. MD agreed recommendations.
[2019-05-29] MEDS: Piperacillin/Tazobactam 3.375 GM in NS 110 ML IVPB SCH (17:19)
--- NOTE | 2019-05-29 17:26 | Diagnostic Imaging Report ---
Clinical Indication: Chronic obstructive pulmonary disease with exacerbation, leukocytosis Technique: Spiral acquisitions obtained through the chest. No IV contrast utilized, . Multiplanar reconstructions generated. Total dose length product mGycm. CTDIvol(s) mGy. Dose reduction achieved using automated exposure control Comparison: none Findings:There is some image degradation due to respiratory motion artifact. Consolidation and atelectasis are seen at both lung bases, slightly more extensive on the left than on the right. Mild interstitial congestion is seen bilaterally diffusely. No definite pleural fluid demonstrated. The heart size is upper limits of normal. No pericardial effusion. Pacemaker is noted. Calcified granulomatous nodes are seen in the left pulmonary hilum. The included portions of the thyroid are unremarkable. No mediastinal or hilar mass or adenopathy demonstrated. No axillary or chest wall mass or adenopathy. There are median sternotomy sutures. The bones demonstrate an osteosclerotic lesion at the right humeral head neck junction. There are degenerative changes of the thoracic spine. The included upper abdominal anatomy demonstrates cholelithiasis. The gallbladder is somewhat distended, but there is no wall thickening. There is prominent colonic fecal material. There is an accessory splenule.. Impression: Bilateral basilar infiltrates and atelectasis Mild interstitial congestion bilaterally Evidence of old granulomatous disease Pacemaker Evidence of prior median sternotomy Right humeral osteoporotic lesion, most likely a benign bone island. Osteoblastic metastasis is not completely excludable but deemed less likely Cholelithiasis Possible constipation. Degenerative spondylosis The CT scanner at [facility] is accredited by the [employer] and the scans are performed using protocols designed to limit radiation exposure to as low as reasonably achievable to attain images of sufficient resolution adequate for diagnostic evaluation.
--- NOTE | 2019-05-29 17:30 | Consultation ---
DATE OF CONSULTATION: 05/29/2019 INFECTIOUS DISEASES CONSULTATION CONSULTING PHYSICIAN: Melina Jones M.D. REQUESTING PHYSICIAN: Ronaldo Muniz M.D. REASON FOR CONSULTATION: Pneumonia, sepsis. Recommendation for antibiotics treatment. HISTORY OF PRESENT ILLNESS: The patient is an 88-year-old male with past medical history of dementia, chronic obstructive pulmonary disease, cardiac arrhythmia status post pacemaker placement was sent from [facility] for hypoxemia, cough productive, and altered mental status. The patient as per the report from his facility was found to be hypoxemic with low oxygen saturation around 80% and had intermittent cough productive. No fever was reported at his facility. The patient is nonverbal at the baseline with severe dementia and was found altered when the paramedics arrived. The patient received nebulizer treatment on the scene without significant improvement with oxygen sat only low 90% so he was brought into the emergency room for evaluation and management. His O2 saturation was 83% on room air in the ER with pulse of 99 and temperature of 98.8 concerning for sepsis. WBC also were elevated suggestive of sepsis. Chest x-ray did not did not show any acute infiltration. The patient was started on ceftriaxone and Zithromax, admitted to the telemetry unit and Infectious Disease consultation was requested for antibiotics treatment and further care. The patient was seen and examined. He is altered, unresponsive, coughing, congested, does not follow any commands. REVIEW OF SYSTEMS: Unable to obtain. The patient is altered, confused, unresponsive, could not provide any history. PAST MEDICAL HISTORY: Significant for dementia, COPD, cardiac arrhythmia status post pacemaker placement. PAST SURGICAL HISTORY: Pacemaker placement. SOCIAL HISTORY: He is detention resident. He is retired. No recent drugs, tobacco, or alcohol. ALLERGIES: He is allergic to acetaminophen and hydrocodone. LABORATORY AND DIAGNOSTIC DATA: White count of 19.9, hemoglobin of 11.6, platelet count of 247. BUN of 43 and creatinine of 2.2. Urinalysis showed positive ketone and blood with negative wbc's and nitrite. Microbiology influenza A and B screening were both negative. Imaging chest x-ray showed posterior left lateral hemidiaphragm, parenchymal or pleural disease of the left lung base possible, no acute process otherwise, sclerotic lesion of the proximal humerus most likely bone island, less likely osteoblastic metastases. PHYSICAL EXAMINATION: VITAL SIGNS: Temperature 98.5, pulse 79, respirations 21, blood pressure 112/54, saturation 98% on Ventimask. GENERAL: Elderly male, lying in bed, altered, unresponsive, coughing and congested on Ventimask, not in acute distress. HEENT: Normocephalic and atraumatic, unable to assess pupils. The patient does not follow command. Dry oral mucosa. No exudate or thrush. NECK: Supple. No local tenderness or lymphadenopathy. CARDIOVASCULAR: Tachycardic. S1 and S2 normal. No murmur or gallop. LUNGS: Crackles diffuse with wheezing and diminished breathing sounds and tachypnea. ABDOMEN: Soft, nontender, nondistended. Normal bowel sounds. No hepatosplenomegaly. No ascites. EXTREMITIES: No edema or cyanosis. SKIN: No rash. No hives. ASSESSMENT AND RECOMMENDATION: 1. COPD with exacerbation and cough productive rule out aspiration pneumonia. We will upgrade his antibiotics to Zosyn and Zyvox and stop ceftriaxone and Zithromax empirically. Send sputum culture. Continue inhalers as needed with extensive suctioning, aspiration precaution. Keep head of bed more than 35 degree. 2. Leukocytosis, possible sepsis due to the above. We will switch his antibiotics to Zosyn and Zyvox, pending blood culture results. Obtain CT scan to evaluate his lung parenchyma. 3. Acute kidney injury. Continue hydration with close monitor of renal function, avoid nephrotoxics. 4. Respiratory failure with hypoxemia, acute. Suspect due to the above. We will order VQ scan to rule out PE as an etiology and CT chest to rule out lungs pathology. Recommend pulmonary evaluation. Thank you for the consult. ID will continue to follow. Please feel free to call with any question. Melina Jones M.D. DR: Bridget JOB#: [id number] CC:
--- NOTE | 2019-05-29 17:30 | NUR ---
NURSE NOTES: Attempted to insert NGT on patient together with another RN. Unsuccessful Resistance observed on both nostrils. Message left to Flavio awaiting call back.
[2019-05-29] MEDS: Depakote 125mg Sprinkles ORAL SCH (18:00)
--- NOTE | 2019-05-29 18:07 | Consultation ---
Consult Note Assessment/Plan DICT # [id number] Kenny Rich MD May 29, 2019 18:07
--- NOTE | 2019-05-29 19:42 | NUR ---
NURSE NOTES: Per Doctor Flavio he spoke with doctor otero and GLADYS reyna will placed NGT in MD. will follow
--- NOTE | 2019-05-29 19:43 | NUR ---
HAND-OFF: Patient monitored closely throughout this shift. SBP's improved now 115's to 120's. O2 sat 96-99%. Patient remained lethargic but now able to open eyes briefly and withdraws to pain. Son Mihai updated re: patients condition and stated he wanted everything done for his father. Report given to Stephanie Acosta. Plan of care endorsed.
--- NOTE | 2019-05-29 19:45 | NUR ---
NURSE NOTES: Received report from Sigrid Araya RN. Pt in bed and in stable condition. No signs of symptoms of pain or distress noted. Bed alarm armed, bed in lowest position, call light within reach. Will continue plan of care and close monitoring.
[2019-05-29] MEDS: Atorvastatin 20mg tab ORAL SCH (21:00)
[2019-05-29] MEDS: Solu-MEDROL 40mg Inj IVP SCH (21:31)
--- NOTE | 2019-05-29 22:01 | History and Physical Report ---
DATE OF ADMISSION: 05/29/2019 CHIEF COMPLAINT: Shortness of breath and restlessness at the rehab. HISTORY OF PRESENT ILLNESS: This is an 88-year-old male with history of dementia, COPD, who was brought in for hypoxia with O2 saturation of low 75 to 80s. The patient is a long-term resident of [facility]. The patient reportedly has had cough and shortness of breath at the facility. The patient is nonverbal and had a history of pacemaker placement previously. In the emergency room, the patient received IV antibiotics and hydration and will be admitted for respiratory failure and COPD exacerbation with possible sepsis. PAST MEDICAL HISTORY: Includes history of pacemaker placement, history of COPD exacerbation, chronic kidney disease, and advanced dementia. PAST SURGICAL HISTORY: History of pacemaker placement previously and history of CABG. ALLERGIES: Shows hydrocodone allergy back in 2019 and acetaminophen allergy. The patient was on acetaminophen at the assisted living, so doubt he has allergy to acetaminophen. SOCIAL HISTORY: Unable to talk to the patient because he is nonverbal. REVIEW OF SYSTEMS: Again, unable to talk to the patient and nonverbal. PHYSICAL EXAMINATION: VITAL SIGNS: Includes a temperature of 98.8, pulse 99, respiration 22, blood pressure 110/50 at the ER, and pulse oximetry 82% on room air. GENERAL APPEARANCE: Hypoxic. The patient is somnolent, but arousable due to noxious stimuli. HEENT: Normocephalic and normochromic. Extraocular muscles intact. LUNGS: Clear to auscultation bilaterally except for slight rhonchi on Rt side CARDIOVASCULAR: Regular rate and rhythm. No murmur. No gallop. Normal S1, S2. ABDOMEN: Soft, nontender, and nondistended. Positive bowel sounds. EXTREMITIES: No edema, cyanosis, or clubbing. NEUROLOGIC: Arousable, but does not respond to commands. LABORATORY AND DIAGNOSTIC DATA: Include sodium 140, potassium 4.5, chloride 105, bicarb 29, BUN 39, creatinine 2.8, glucose 127, calcium 8.8. AST 21, ALT 19, alkaline phosphatase 104. Troponin is 0.066 and BNP 2241, albumin 2.3. WBC 19.9, hemoglobin 11.6, hematocrit 34.5, platelet count is 247,000, neutrophil is 80, lymphocytes 15. UA shows +2 urine protein and +1 urine blood, 0 to 2 rbc's, few squamous epithelial cells. Chest x-ray showed posterior left lateral hemidiaphragm and parenchymal and pleural disease of the left lung, but no acute process. Sclerotic lesion of the proximal humerus, most likely bone island, less likely osteoblastic metastasis. IMPRESSION: 1. Hypoxia. The patient will be started on breathing treatment, oxygen and we will also have Pulmonary see the patient today. 2. Acute on chronic kidney disease. We will monitor renal function and hydrate the patient with IV fluids to improve the renal aspect of the acute renal failure. 3. Elevated WBC or leukocytosis, most likely due to possible sepsis, which we will have ID see the patient and we will upgrade the antibiotic to Zosyn. 4. COPD exacerbation. We will restart the patient on nebulizer and inhaler, and monitor the patient as inpatient. 5. Elevated troponin. We will have Cardiology, Dr. Cunningham to see the patient and do a series of troponin level. Elevated troponin, possibly due to sepsis and acute on chronic kidney disease. 6. Pacemaker and history of CABG. We will have Cardiology, Dr. Cunningham see the patient and evaluate the pacemaker. The patient will be admitted for minimum of two-night stay for the diagnoses of COPD exacerbation, elevated troponin, and possible sepsis. Leland Zavala JOB#: [id number] CC: CHRIS
--- NOTE | 2019-05-29 22:01 | Consultation ---
DATE OF CONSULTATION: 05/29/2019 PULMONARY CONSULTATION CONSULTING PHYSICIAN: Kenny Rich M.D. REFERRING PHYSICIAN: Ronaldo Muniz M.D. REASON FOR CONSULTATION: COPD exacerbation. HISTORY OF PRESENT ILLNESS: The patient is an 88-year-old male with a presumed past medical history of COPD, dementia, arrhythmia, sick sinus syndrome and pacemaker, and recent admission at [facility] with sepsis and possible pneumonia, nonverbal at baseline with severe dementia, sent in from the facility with hypoxemia and low O2 sats. He was 83% on room air in the ER with leukocytosis. Chest x-ray did not show any acute abnormality. He was treated with Rocephin and azithromycin and admitted. At the time of my history, the patient is obtunded, but per nurse he received Ativan in the ER and was more responsive earlier. An ABG is pending. PAST MEDICAL HISTORY: 1. COPD. 2. Dementia. 3. Arrhythmia. 4. Sick sinus syndrome, status post pacemaker. PAST SURGICAL HISTORY: Pacemaker placement, otherwise unknown. SOCIAL HISTORY: Retired, long term resident. No known tobacco, alcohol, or drug use. ALLERGIES: Acetaminophen and hydrocodone. MEDICATIONS: Prior to admission medications, reviewed. Current medications, reviewed. REVIEW OF SYSTEMS: Unobtainable. PHYSICAL EXAMINATION: VITAL SIGNS: Temperature is 98.8, pulse 85, blood pressure 98/54, and respiratory rate 16. Saturating 98% on 8 L. GENERAL: He is an elderly frail gentleman, in no acute distress, nonverbal. HEENT: Normocephalic and atraumatic. Oropharynx is clear. Moist mucous membranes. NECK: Supple without lymphadenopathy. CHEST: Coarse breath sounds. Distant. HEART: Regular rate and rhythm. ABDOMEN: Soft, nontender, and nondistended. EXTREMITIES: No cyanosis clubbing, or edema. ANCILLARY DATA: White count 13.2, hemoglobin 10, and platelet count 174,000. ABG - 7.33/39/49/20/82. Sodium 140, potassium 4.4, chloride 108, bicarbonate 23, BUN 42, and creatinine 2.2. Glucose 217. Calcium 8.3. Troponin 0.06 and 0.08. BNP 1688. Total protein 7.1, albumin 2.3, globulin 4.8. Please note that creatinine was 1 on 05/16/2019 at [facility]. Last echocardiogram on 02/16/2019 at [facility] showed LVEF of 38% with mild diastolic dysfunction. IMAGING: Chest x-ray showed some atelectasis at the bases, bony findings, and the senescent changes. CT of the chest without contrast showed bilateral basilar infiltrates and atelectasis. Mild congestion. Old granulomatous disease. Pacemaker. Prior sternotomy. Cholelithiasis. Constipation. ASSESSMENT: The patient is an 88-year-old male with a history of dementia, chronic obstructive pulmonary disease, prior sternotomy, congestive heart failure, and sick sinus syndrome, status post pacemaker, presenting with a respiratory illness, likely healthcare-associated pneumonia with acute kidney injury and dehydration. PROBLEM LIST: 1. Healthcare-associated pneumonia. 2. Acute hypoxemic respiratory failure secondary to above. 3. Acute kidney injury. 4. Dehydration. 5. Non ST-elevation myocardial infarction, likely demand ischemia. 6. Chronic obstructive pulmonary disease with acute exacerbation. 7. Hypertension. 8. Hypertensive heart disease. 9. Hyperlipidemia. 10. Diabetes type 2. 11. CAD, status post CABG and PCI. 12. History of Mobitz type II heart block and sick sinus syndrome, status post pacemaker. 13. Peripheral vascular disease. 14. History of angioedema in the past. 15. Dementia. TREATMENT PLAN: 1. Optimize pulmonary hygiene/mobilize as tolerated. 2. Titrate down FiO2 to keep saturations greater than 90%. 3. [id number] and p.r.n. bronchodilators. 4. Solu-Medrol 40 mg IV b.i.d. and taper. 5. Antibiotics (Zosyn) per ID. 6. Monitor volumes and renal function, we will consider IV fluid hydration if the patient is clinically dehydrated. 7. Aspiration precautions, n.p.o., swallow evaluation when more alert. 8. DVT prophylaxis, heparin subcutaneous. 9. The patient is Full Code, continue to discuss goals of care. Dr. Muniz, thank you for allowing me to assist in the care of your patient. If I may be of any assistance in the future, please do not hesitate to ask. Kenny Rich M.D. DR: DEVI JOB#: [id number] CC:
[2019-05-30] MEDS: Piperacillin/Tazobactam 3.375 GM in NS 110 ML IVPB SCH ×4 (00:13→23:01)
[2019-05-30] MEDS: Albuterol/Ipratropium 3ml neb HHN SCH ×4 (01:04→19:40)
[2019-05-30 06:13] LABS: HEMATOCRIT 30.6 % (42.0-52.0); HEMOGLOBIN 10.4 G/DL (14.2-18.0); MEAN CORPUSCULAR VOLUME 94 FL (80-99); PLATELET COUNT 244 K/UL (150-450); RED BLOOD COUNT 3.25 M/UL (4.70-6.10); RED CELL DISTRIBUTION WIDTH 16.4 % (11.6-14.8); WHITE BLOOD COUNT 11.2 K/UL (4.8-10.8)
[2019-05-30] MEDS: NovoLOG Insulin Flexpen SUBQ SCH ×4 (06:30→21:00)
[2019-05-30 06:55] LABS: ANION GAP 12 mmol/L (5-15); BLOOD UREA NITROGEN 44 mg/dL (7-18); CALCIUM 8.6 MG/DL (8.5-10.1); CARBON DIOXIDE 24 MMOL/L (21-32); CHLORIDE 107 MMOL/L (98-107); CHOLESTEROL 119 MG/DL (< 200); CREATININE 1.9 MG/DL (0.55-1.30); HDL CHOLESTEROL 28 MG/DL (40-60); POTASSIUM 4.2 MMOL/L (3.5-5.1); SODIUM 142 MMOL/L (136-145); TRIGLYCERIDES 93 MG/DL (30-150)
--- NOTE | 2019-05-30 07:36 | NUR ---
HAND-OFF: Report given to Pop Lux RN. Pt in stable condition, plan of care endorsed.
[2019-05-30 08:00] VITALS: BP 103/74
[2019-05-30] MEDS ORDERED: cefTRIAXone 1 GM in D5W 55 ML IVPB SCH (08:00)
[2019-05-30] MEDS ORDERED: Azithromycin 500 MG in D5W 275 ML IV SCH (09:00)
[2019-05-30] MEDS: Donepezil 10mg tab ORAL SCH (09:00)
[2019-05-30] MEDS: Depakote 125mg Sprinkles ORAL SCH ×2 (09:00→18:00)
[2019-05-30] MEDS: Heparin 5000 units/ml inj SUBQ SCH ×2 (09:00→20:51)
[2019-05-30] MEDS: Docusate 100mg cap ORAL SCH ×3 (09:00→15:22)
[2019-05-30] MEDS: Tamsulosin 0.4mg cap ORAL SCH (09:00)
[2019-05-30] MEDS: Aspirin Baby 81mg ORAL SCH (09:00)
--- NOTE | 2019-05-30 09:16 | General Progress Note ---
Assessment/Plan Status: stable Assessment/Plan: 1. Pneumonia - cont IV Abx 2. Leukocytosis improving, possible sepsis - cont IV abx. 3. Elevated Troponin 2nd to NSTEMI due to demand Ischemia most likely due to DALILA and sepsis - cardiology following. 4. COPD exacerbation - on solumedrol and pulmonary following. 5. Hypotension 2nd to sepsis and pneumonia - improving. will hold hypertensive meds for now. 6. Dementia - will restart home meds after NG tube placement by Dr Larsen. 7. Acute Hypoxemic respiratory Failure 2nd to pneumonia and sepsis 8. AMOS - improving with hydration. 9. Hypertensive heart disease 10. HLD - will resume med after NG tube placement. 11. DM II - Insulin on hold until NG tube is placed.and Tube feeding starts. 12. CAD s/p CABG and stent placement. 13. H/O PVD 14. H/O angioedema in the past. Subjective Date patient seen: May 30, 2019 Time patient seen: 08:50 Constitutional: Reports: weakness HEENT: Reports: no symptoms Cardiovascular: Reports: no symptoms Respiratory: Reports: no symptoms, other - Rt sided rhonchi Gastrointestinal/Abdominal: Reports: no symptoms Genitourinary: Reports: no symptoms Neurologic/Psychiatric: Reports: no symptoms Hematologic/Lymphatic: Reports: no symptoms Allergies: Coded Allergies: ACETAMINOPHEN (Verified Allergy, Unknown, 05/29/19) HYDROCODONE (Verified Allergy, Unknown, 05/29/19) Subjective This morning his BP has improved and it is in low 100 systolic. Afebrile and His WBC improving. He still drowsy and doesn't open his eyes. Objective Last 24 Hour Vital Signs Date Time Temp Pulse Resp B/P (MAP) Pulse Ox O2 Delivery O2 Flow Rate FiO2 05/30/19 08:00 98.2 19 103/74 (84) 65 05/30/19 07:28 72 18 100 Simple Mask 8.0 50 61 18 97 05/30/19 07:17 97 Simple Mask 8.0 50 05/30/19 04:00 8.0 05/30/19 04:00 69 05/30/19 01:05 75 18 99 Simple Mask 8.0 40 70 19 97 05/30/19 00:00 84 05/29/19 21:00 97 94/41 05/29/19 21:00 Simple Mask 8.0 05/29/19 20:00 8.0 05/29/19 20:00 62 05/29/19 19:21 72 19 99 Simple Mask 8.0 40 68 22 97 05/29/19 19:05 97 Simple Mask 8.0 45 05/29/19 19:00 115/65 (82) 05/29/19 17:00 125/75 (92) 68 05/29/19 16:00 97.3 112/65 (81) 67 05/29/19 16:00 65 05/29/19 16:00 8.0 05/29/19 15:30 96/54 (68) 66 05/29/19 15:00 102/51 (68) 72 05/29/19 14:30 101/48 (65) 68 05/29/19 14:00 93/50 (64) 92 05/29/19 13:30 84/43 (57) 98 05/29/19 13:00 88/42 (57) 79 05/29/19 12:30 92/50 (64) 70 05/29/19 12:00 8.0 05/29/19 12:00 96.8 67 22 91/39 (56) 96 05/29/19 12:00 67 05/29/19 10:30 98/40 (59) 92 05/29/19 10:00 100/43 (62) 92 05/29/19 09:30 85/41 (56) 73 Intake and Output 05/29/19 05/30/19 19:00 07:00 Output Total 150 ml 600 ml Balance -150 ml -600 ml Output Urine Total 150 ml 600 ml Laboratory Tests 05/29/19 12:12: Arterial Blood pH 7.331L, Arterial Blood Partial Pressure CO2 39.6, Arterial Blood Partial Pressure O2 49.6*L, Arterial Blood HCO3 20.5L, Arterial Blood Oxygen Saturation 82.5*L, Arterial Blood Base Excess -5.0L, Fidel Test Positive 05/29/19 12:15: White Blood Count 13.2H, Red Blood Count 3.44L, Hemoglobin 10.2L, Hematocrit 32.3L, Mean Corpuscular Volume 94, Mean Corpuscular Hemoglobin 29.5, Mean Corpuscular Hemoglobin Concent 31.4L, Red Cell Distribution Width 16.8H, Platelet Count 174, Mean Platelet Volume 6.0L, Neutrophils (%) (Auto) , Lymphocytes (%) (Auto) , Monocytes (%) (Auto) , Eosinophils (%) (Auto) , Basophils (%) (Auto) , Differential Total Cells Counted 100, Neutrophils % ( Manual) 90H, Lymphocytes % (Manual) 8L, Monocytes % (Manual) 2, Eosinophils % ( Manual) 0, Basophils % (Manual) 0, Band Neutrophils 0, Platelet Estimate Adequate, Platelet Morphology Normal, Hypochromasia 1+, Anisocytosis 1+, Sodium Level 140, Potassium Level 4.4, Chloride Level 108H, Carbon Dioxide Level 23, Anion Gap 9, Blood Urea Nitrogen 43H, Creatinine 2.2H, Estimat Glomerular Filtration Rate 28.3, Glucose Level 217H, Calcium Level 8.3L, Troponin I 0.086H , Pro-B-Type Natriuretic Peptide 1688H 05/30/19 05:23: White Blood Count 11.2H, Red Blood Count 3.25L, Hemoglobin 10.4L, Hematocrit 30.6L, Mean Corpuscular Volume 94, Mean Corpuscular Hemoglobin 31.9H, Mean Corpuscular Hemoglobin Concent 33.9, Red Cell Distribution Width 16.4H, Platelet Count 244, Mean Platelet Volume 5.8L, Neutrophils (%) (Auto) , Lymphocytes (%) (Auto) , Monocytes (%) (Auto) , Eosinophils (%) (Auto) , Basophils (%) (Auto) , Sodium Level 142, Potassium Level 4.2, Chloride Level 107 , Carbon Dioxide Level 24, Anion Gap 12, Blood Urea Nitrogen 44H, Creatinine 1.9H, Estimat Glomerular Filtration Rate 33.5, Glucose Level 283H, Calcium Level 8.6, Troponin I 0.082H, Pro-B-Type Natriuretic Peptide 1805H, Triglycerides Level 93, Cholesterol Level 119, LDL Cholesterol 51, HDL Cholesterol 28L, Cholesterol/HDL Ratio 4.3 Height (Feet): 5 Height (Inches): 11.00 Weight (Pounds): 200 General Appearance: no apparent distress, lethargic EENT: normal ENT inspection Neck: non-tender, normal alignment, supple Cardiovascular: normal rate, regular rhythm Respiratory/Chest: normal breath sounds, crackles/rales Abdomen: normal bowel sounds, non tender, soft Extremities: non-tender Edema: no edema noted Arm (L), no edema noted Arm (R), no edema noted Leg (L), no edema noted Leg (R), no edema noted Pedal (L), no edema noted Pedal (R), no edema noted Generalized Neurologic: alert, responsive Skin: warm/dry Ronaldo Muniz MD May 30, 2019 09:16
[2019-05-30] MEDS: Solu-MEDROL 40mg Inj IVP SCH ×2 (09:18→20:50)
--- NOTE | 2019-05-30 10:35 | NUR ---
RD ASSESSMENT & RECOMMENDATIONS SEE CARE ACTIVITY FOR COMPLETE ASSESSMENT DAILY ESTIMATED NEEDS: Needs based on DM, pulmonary, wound/ 72.7kg 25-30 kcals/kg 0857-4989 total kcals 1.25-1.5 g protein/kg 91-109 g total protein 25-30 mL/kg 6327-3121 total fluid mLs NUTRITION DIAGNOSIS: Swallowing difficulty R/T dysphagia as evidenced by pt on pureed w/ NTL diet ASSET PROTECTION REPRESENTATIVE, BROKER ASSOCIATE recommends temporary nonoral feeding at this time, pending NGT insertion, NPO at this time. CURRENT TF:NPO ENTERAL NUTRITION RECOMMENDATIONS: Glucerna 1.5 @ 55ml/hr x 24 hrs to provide 1320ml, 1980kcal, 109g prot, 1002ml free water * W/ GI access, initiate Glucerna 1.5 @ 15ml/hr x 6hrs * Advance 10ml q 4-6 hrs as tolerated to goal rate * HOB over 30 degrees * Without IVF, H20 flush of 150ml q 4 hrs ADDITIONAL RECOMMENDATIONS: * Maintain calibrated bedscale wt (SNF vc=070# on 05/22, bedscale mi=004#) * Monitor lytes w/ TF, replete as needed * Monitor BGs closely w/ Solumedrol, need for long acting insulin * Monitor BROKER ASSOCIATE eval, for possible oral diet : BROKER ASSOCIATE recommends NPO at this mae * F/up w/ wound care eval -> add Vit C 250mg QD + Jung 1pkt BID (via NGT, mix w/ 4oz water)
--- NOTE | 2019-05-30 11:42 | GI Initial Consult Note ---
History of Present Illness General Date patient seen: May 30, 2019 Time patient seen: 11:37 Reason for Hospitalization: Dyspnea/Respdistress Referring physician: PAIGE GOODMAN Reason for Consultation: NGT PLACEMENT Present Illness HPI This is an 88-year-old male with history of dementia, COPD, who was brought in for hypoxia with O2 saturation of low 75 to 80s. The patient is a long-term resident of [facility]. The patient reportedly has had cough and shortness of breath at the facility. The patient is nonverbal and had a history of pacemaker placement previously. In the emergency room, the patient received IV antibiotics and hydration and will be admitted for respiratory failure and COPD exacerbation with possible sepsis. GI consulted for nasogastric tube placement. ROS limited, patient with history nonverbal. Patient seen, awake alert no apparent distress currently n.p.o. with IV fluids. Patient initially admitted for possible respiratory failure and COPD exacerbation. According to the report from the RN, multiple attempts failed attempts for nasogastric tube placement. Unknown history of endoscopic or colonoscopy. Laboratory review significant WBC 11.2, hemoglobin 10.4, hematocrit 30.6, creatinine 1.9, troponin level 0.082. Home Meds Reported Medications Ipratropium [place] 0.5MG/2.5ML (IPRATROPIUM BROMIDE 0.5MG/2.5ML) 0.2 Mg/1 Ml Solution, 0.5 MG HHN Q6H PRN for Shortness of Breath, #28 EA 05/29/19 Docusate Sodium* (DOCUSATE SODIUM*) 100 Mg Capsule, 100 MG ORAL THREE TIMES A DAY for constipation, CAP 05/29/19 Icosapent Ethyl (VASCEPA) 1 Gm Capsule, 1 GM PO for hyperlipidemia, CAP 05/29/19 Linagliptin (TRADJENTA) 5 Mg Tablet, 5 MG PO for DM, TAB 05/29/19 Tamsulosin HCl (Flomax) 0.4 Mg Cap.er.24h, 0.4 MG ORAL DAILY for BPH, CAP 05/29/19 Clopidogrel Bisulfate* (PLAVIX*) 75 Mg Tablet, 75 MG ORAL DAILY for CVA prophylaxis, TAB 05/29/19 Metoprolol Tartrate* (METOPROLOL TARTRATE*) 25 Mg Tablet, 25 MG ORAL EVERY 12 HOURS for HTN, TAB 05/29/19 Melatonin (MELATONIN) 5 Mg Tab.rapdis, 5 MG ORAL BEDTIME PRN for Insomnia, TAB 05/29/19 Bimatoprost (LUMIGAN) 2.5 Ml Drops, 1 DROP BOTH EYES DAILY for glaucoma, #2.5 ML 0 Refills 05/29/19 Losartan Potassium* (LOSARTAN POTASSIUM*) 50 Mg Tablet, 50 MG ORAL DAILY for HTN , TAB 05/29/19 Atorvastatin Calcium* (LIPITOR*) 20 Mg Tablet, 20 MG ORAL BEDTIME for hyperlipidemia, TAB 05/29/19 Lidocaine Patch* (Lidoderm Patch*) 1 Each Adh..patch, 1 PATCH TOPIC DAILY for pain mgt, #30 PATCH Patch(es) may remain in place for up to 12 hours in any 24-hour period. 05/29/19 Umeclidinium Kunkle (Incruse Ellipta) 62.5 Mcg Blst.w.dev, 62.5 MCG IH for COPD 05/29/19 Ferrous Sulfate* (FERROUS SULFATE*) 325 Mg Tablet, 220 MG ORAL DAILY for anemia , #30 TAB 0 Refills 05/29/19 Donepezil Hcl* (DONEPEZIL HCL*) 10 Mg Tab.rapdis, 10 MG ORAL DAILY for alzheimer , TAB 05/29/19 Divalproex Sodium* (DEPAKOTE*) 250 Mg Tablet.dr, 125 MG PO BID for labile mood, TAB 05/29/19 Cholecalciferol (Vitamin D3) (Vitamin D-3) 2,000 Unit Tablet, 2000 UNIT PO for supplement, TAB 05/29/19 Vitamin B Complex (B COMPLEX) 1 Each Tablet, 1 TAB ORAL DAILY for supplement, # 30 TAB 0 Refills 05/29/19 Pioglitazone Hcl* (ACTOS*) 15 Mg Tablet, 15 MG ORAL DAILY for DM, TAB 05/29/19 Med list reviewed/reconciled: Yes Allergies: Coded Allergies: ACETAMINOPHEN (Verified Allergy, Unknown, 05/29/19) HYDROCODONE (Verified Allergy, Unknown, 05/29/19) Patient History Limited by: medical condition History Provided By: Medical Record [facility] Narrative PAST MEDICAL HISTORY: Includes history of pacemaker placement, history of COPD exacerbation, chronic kidney disease, and advanced dementia. PAST SURGICAL HISTORY: History of pacemaker placement previously and history of CABG. Social History: Denies: smoking, alcohol use, drug use, other Review of Systems All Other Systems: limited Physical Exam Vital Signs Date Time Temp Pulse Resp B/P (MAP) Pulse Ox O2 Delivery O2 Flow Rate FiO2 05/29/19 03:52 98.8 99 22 110/50 (70) 83 Room Air 05/29/19 04:00 15.0 05/29/19 19:05 45 Sp02 EP Interpretation: reviewed Labs Laboratory Tests Test 05/29/19 12:12 05/29/19 12:15 05/30/19 05:23 Arterial Blood pH 7.331 (7.350-7.450) Arterial Blood Partial Pressure CO2 39.6 mmHg (35.0-45.0) Arterial Blood Partial Pressure O2 49.6 mmHg (75.0-100.0) Arterial Blood HCO3 20.5 mmol/L (22.0-26.0) L Arterial Blood Oxygen Saturation 82.5 % (95-100) *L Arterial Blood Base Excess -5.0 (-2-2) L Fidel Test Positive White Blood Count 13.2 K/UL (4.8-10.8) H 11.2 K/UL (4.8-10.8) H Red Blood Count 3.44 M/UL (4.70-6.10) L 3.25 M/UL (4.70-6.10) L Hemoglobin 10.2 G/DL (14.2-18.0) L 10.4 G/DL (14.2-18.0) L Hematocrit 32.3 % (42.0-52.0) L 30.6 % (42.0-52.0) L Mean Corpuscular Volume 94 FL (80-99) 94 FL (80-99) Mean Corpuscular Hemoglobin 29.5 PG (27.0-31.0) 31.9 PG (27.0-31.0) H Mean Corpuscular Hemoglobin Concent 31.4 G/DL (32.0-36.0) L 33.9 G/DL (32.0-36.0) Red Cell Distribution Width 16.8 % (11.6-14.8) H 16.4 % (11.6-14.8) H Platelet Count 174 K/UL (150-450) 244 K/UL (150-450) Mean Platelet Volume 6.0 FL (6.5-10.1) L 5.8 FL (6.5-10.1) L Neutrophils (%) (Auto) % (45.0-75.0) % (45.0-75.0) Lymphocytes (%) (Auto) % (20.0-45.0) % (20.0-45.0) Monocytes (%) (Auto) % (1.0-10.0) % (1.0-10.0) Eosinophils (%) (Auto) % (0.0-3.0) % (0.0-3.0) Basophils (%) (Auto) % (0.0-2.0) % (0.0-2.0) Differential Total Cells Counted 100 Neutrophils % (Manual) 90 % (45-75) H Lymphocytes % (Manual) 8 % (20-45) L Monocytes % (Manual) 2 % (1-10) Eosinophils % (Manual) 0 % (0-3) Basophils % (Manual) 0 % (0-2) Band Neutrophils 0 % (0-8) Platelet Estimate Adequate Platelet Morphology Normal Hypochromasia 1+ Anisocytosis 1+ Sodium Level 140 MMOL/L (136-145) 142 MMOL/L (136-145) Potassium Level 4.4 MMOL/L (3.5-5.1) 4.2 MMOL/L (3.5-5.1) Chloride Level 108 MMOL/L (98-107) H 107 MMOL/L (98-107) Carbon Dioxide Level 23 MMOL/L (21-32) 24 MMOL/L (21-32) Anion Gap 9 mmol/L (5-15) 12 mmol/L (5-15) Blood Urea Nitrogen 43 mg/dL (7-18) H 44 mg/dL (7-18) H Creatinine 2.2 MG/DL (0.55-1.30) H 1.9 MG/DL (0.55-1.30) H Estimat Glomerular Filtration Rate 28.3 mL/min (>60) 33.5 mL/min (>60) Glucose Level 217 MG/DL (74-106) H 283 MG/DL (74-106) H Calcium Level 8.3 MG/DL (8.5-10.1) L 8.6 MG/DL (8.5-10.1) Troponin I 0.086 ng/mL (0.000-0.056) 0.082 ng/mL (0.000-0.056) Pro-B-Type Natriuretic Peptide 1688 pg/mL (0-125) H 1805 pg/mL (0-125) H Triglycerides Level 93 MG/DL (30-150) Cholesterol Level 119 MG/DL (< 200) LDL Cholesterol 51 mg/dL (<100) HDL Cholesterol 28 MG/DL (40-60) L Cholesterol/HDL Ratio 4.3 (3.3-4.4) General Appearance: no apparent distress Head: normocephalic EENT: PERRL/EOMI Neck: supple Respiratory: decreased breath sounds Cardiovascular: normal rate Gastrointestinal: soft Skin: normal inspection, normal color, no rash Lymphatic: normal inspection, no adenopathy Current Medications Current Medications Medications (Trade) Dose Ordered Sig/Elizabeth Route PRN Reason Start Time Stop Time Status Last Admin Dose Admin Albuterol/ Ipratropium (Albuterol/ Ipratropium) 3 ml Q6HRT HHN 05/29/19 13:00 06/03/19 12:59 05/30/19 07:18 Aspirin (ASA) 81 mg DAILY ORAL 05/30/19 09:00 06/29/19 08:59 Atorvastatin Calcium (Lipitor) 20 mg BEDTIME ORAL 05/29/19 21:00 06/28/19 20:59 Clopidogrel Bisulfate (Plavix) 75 mg DAILY ORAL 05/30/19 09:00 06/29/19 08:59 Dextrose (Dextrose 50%) 25 ml Q30M PRN IV Hypoglycemia 05/29/19 08:45 06/28/19 08:44 Dextrose (Dextrose 50%) 50 ml Q30M PRN IV Hypoglycemia 05/29/19 08:45 06/28/19 08:44 Divalproex Sodium (Depakote Sprinkles) 125 mg BID ORAL 05/29/19 18:00 06/28/19 17:59 Docusate Sodium (Colace) 100 mg THREE TIMES A DAY ORAL 05/29/19 13:00 06/28/19 12:59 Donepezil HCl (Aricept) 10 mg DAILY ORAL 05/30/19 09:00 06/29/19 08:59 Heparin Sodium (Porcine) (Heparin 5000 units/ml) 5,000 units EVERY 12 HOURS SUBQ 05/29/19 09:00 06/28/19 08:59 05/29/19 21:34 Insulin Aspart (NovoLOG) BEFORE MEALS AND HS SUBQ 05/29/19 11:30 06/28/19 11:29 05/29/19 17:21 Ipratropium [place] (Atrovent) 500 mcg Q6H PRN HHN Shortness of Breath 05/29/19 10:00 06/03/19 09:59 Lidocaine (Lidoderm 5% PATCH) 1 patch DAILY TDERMAL 05/30/19 09:00 06/29/19 08:59 Linezolid 300 ml @ 300 mls/hr Q12H IVPB 05/29/19 17:00 06/05/19 16:59 05/30/19 05:00 Methylprednisolone Sodium Succinate (Solu-MEDROL) 40 mg EVERY 12 HOURS IVP 05/29/19 21:00 06/28/19 20:59 05/30/19 09:18 Metoprolol Tartrate (Lopressor) 25 mg EVERY 12 HOURS ORAL 05/29/19 21:00 06/28/19 20:59 Piperacillin Sod/ Tazobactam Sod 3.375 gm/Sodium Chloride 110 ml @ 27.5 mls/hr Q8H IVPB 05/29/19 16:00 06/05/19 15:59 05/30/19 08:00 Sodium Chloride 1,000 ml @ 50 mls/hr Q20H IV 05/29/19 12:00 06/28/19 11:59 05/30/19 08:00 Tamsulosin HCl (Flomax) 0.4 mg DAILY ORAL 05/30/19 09:00 06/29/19 08:59 GI: Plan Problems: (1) Dysphasia (2) Failure to thrive (3) Respiratory failure with hypoxia Plan History of pacemaker placement, currently on Plavix. We will attempt for nasogastric tube placement today, will consider Dobbhoff if necessary. Tube feedings per registered dietitian anemia work up OB stool r/o GI bleed monitor H&H, prn transfusions bowel regimen ppi fu labs We will follow with additional recommendations on a daily basis Discussed with Dr. Miner. Thank you for this patient referral, we will follow. The patient was seen and examined at bedside and all new and available data was reviewed in the patients chart. I agree with the above findings, impression and plan. (Patient seen earlier today. Signature stamp does not reflect patient encounter time.). - MD Sharon BaileyAbra[facility] May 30, 2019 11:42
[2019-05-30 12:04] VITALS: BP 105/47
--- NOTE | 2019-05-30 12:47 | NUR ---
ST NOTES: SWALLOW STATUS: PATIENT NOT ALERT TO MAX STIM. PER RT, PATIENT WILL WAKE UP DURING RESP TX AND TRY TO PULL AT HIS LINES. SPOKE WITH RN, JOSH, THEY WERE UNABLE TO GET NGT INTO BOTH NOSTRILS. GI PROPELLER DRIVEN AIRPLANE MECHANIC, LADARIUS, TO TRY TODAY. FAMILY DOES NOT WANT PEG. ? CONSIDER OGT IF NEEDED. PER RT: Date: 05/30/19 07:17 Type: Oxygen Delivery & Pulse Ox Ass... O2 Round Yes Initial Therapy No MD Order Obtained For Oxygen Yes Bedside Pulse Oximetry 97 % (90-100) Oxygen Delivery Method Simple Mask Skin Intact Yes Oxygen Flow Rate 8.0 L/min Fraction of Inspired Oxygen (FiO2) 50 % Hours 12 RESP RATE NOW 18-19 (NOT ABOVE 25 BPM PREFERENCE WHEN READY FOR PO TRIALS AND CONSISTENTLY ALERT) PLAN: CONTINUE WITH ORAL CARE AND INITIATE NONORAL FEEDINGS FOR NOW (NO PO INCLUDES MEDS/ICE CHIPS) MOD BARIUM SWALLOW STUDY WHEN READY
--- NOTE | 2019-05-30 13:00 | NUR ---
NG TUBE INSERTED ORDERED BY LADARIUS AVILA AND X-RAY DONE PER PROTOCOL Addendum: 05/30/19 at 1830 by JOSH ELISE RN RN new ng tube inserted @ 1445 and stat chest x ray ordered per protocol to confirm placement
--- NOTE | 2019-05-30 13:32 | Infectious Diseases Prog Note ---
Assessment/Plan Problems: (1) Basal pneumonia of both lungs Assessment & Plan: confirmed on CT chest , with cough and congestion , suspect aspiration , already on zosyn and zyvox , pending sputum culture , aspiration precaution, keep HOB > 30 degree (2) COPD (chronic obstructive pulmonary disease) Assessment & Plan: with exacerbation , continue antibiotics , inhalers , pending sputum culture (3) Leukocytosis Assessment & Plan: possible sepsis . on zosyn and zyvox pending blood culture (4) AMOS (acute kidney injury) Assessment & Plan: continue hydration, with close monitoring of renal function , avoid nephrotoxics (5) Respiratory failure with hypoxia Assessment & Plan: suspect due to the above, will order V/Q scan to rule out PE as an etiology , and CT chest to rule out lungs pathology , recommend pulmonary eval Subjective ROS Limited/Unobtainable: Yes Allergies: Coded Allergies: ACETAMINOPHEN (Verified Allergy, Unknown, 05/29/19) HYDROCODONE (Verified Allergy, Unknown, 05/29/19) Subjective He was still altered and unresponsive, on high flow oxygen via mask, and on restrains, A febrile , still congested Objective Vital Signs Last 24 Hour Vital Signs Date Time Temp Pulse Resp B/P (MAP) Pulse Ox O2 Delivery O2 Flow Rate FiO2 05/30/19 12:49 61 20 99 Simple Mask 8.0 50 60 20 96 05/30/19 12:04 96.6 19 105/47 (66) 64 05/30/19 12:04 8.0 05/30/19 09:00 Simple Mask 8.0 05/30/19 08:00 71 05/30/19 08:00 8.0 05/30/19 08:00 98.2 19 103/74 (84) 65 05/30/19 07:28 72 18 100 Simple Mask 8.0 50 61 18 97 05/30/19 07:17 97 Simple Mask 8.0 50 05/30/19 04:00 8.0 05/30/19 04:00 69 05/30/19 01:05 75 18 99 Simple Mask 8.0 40 70 19 97 05/30/19 00:00 84 05/29/19 21:00 97 94/41 05/29/19 21:00 Simple Mask 8.0 05/29/19 20:00 8.0 05/29/19 20:00 62 05/29/19 19:21 72 19 99 Simple Mask 8.0 40 68 22 97 05/29/19 19:05 97 Simple Mask 8.0 45 05/29/19 19:00 115/65 (82) 05/29/19 17:00 125/75 (92) 68 05/29/19 16:00 97.3 112/65 (81) 67 05/29/19 16:00 65 05/29/19 16:00 8.0 05/29/19 15:30 96/54 (68) 66 05/29/19 15:00 102/51 (68) 72 05/29/19 14:30 101/48 (65) 68 05/29/19 14:00 93/50 (64) 92 Height (Feet): 5 Height (Inches): 11.00 Weight (Pounds): 200 General Appearance: no acute distress, cachetic, other - altered HEENT: normocephalic, atraumatic, anicteric, no JVD, other - dry mouth , pupils are fixed Respiratory/Chest: decreased breath sounds, crackles/rales, expiratory wheezing Cardiovascular: normal peripheral pulses, normal rate, regular rhythm, no gallop/murmur, no JVD Abdomen: normal bowel sounds, soft, non tender, no organomegaly, non distended , no mass, no scars Extremities: no cyanosis, no clubbing Skin: no rash, no lesions Neurologic/Psychiatric: unresponsiveness Lymphatic: no neck adenopathy, no groin adenopathy Musculoskeletal: normal muscle bulk, no effusion Microbiology Date/Time Source Procedure Growth Status 05/29/19 17:50 Sputum Expectorated Gram Stain - Final Resulted 05/29/19 17:50 Sputum Expectorated Sputum Culture Pending Resulted 05/29/19 04:24 Nasal Nares - Final Complete 05/29/19 04:24 Nasal Nares - Final Complete 05/29/19 04:00 Rectum Received Laboratory Tests Test 05/30/19 05:23 White Blood Count 11.2 K/UL (4.8-10.8) H Red Blood Count 3.25 M/UL (4.70-6.10) L Hemoglobin 10.4 G/DL (14.2-18.0) L Hematocrit 30.6 % (42.0-52.0) L Mean Corpuscular Volume 94 FL (80-99) Mean Corpuscular Hemoglobin 31.9 PG (27.0-31.0) H Mean Corpuscular Hemoglobin Concent 33.9 G/DL (32.0-36.0) Red Cell Distribution Width 16.4 % (11.6-14.8) H Platelet Count 244 K/UL (150-450) Mean Platelet Volume 5.8 FL (6.5-10.1) L Neutrophils (%) (Auto) % (45.0-75.0) Lymphocytes (%) (Auto) % (20.0-45.0) Monocytes (%) (Auto) % (1.0-10.0) Eosinophils (%) (Auto) % (0.0-3.0) Basophils (%) (Auto) % (0.0-2.0) Sodium Level 142 MMOL/L (136-145) Potassium Level 4.2 MMOL/L (3.5-5.1) Chloride Level 107 MMOL/L (98-107) Carbon Dioxide Level 24 MMOL/L (21-32) Anion Gap 12 mmol/L (5-15) Blood Urea Nitrogen 44 mg/dL (7-18) H Creatinine 1.9 MG/DL (0.55-1.30) H Estimat Glomerular Filtration Rate 33.5 mL/min (>60) Glucose Level 283 MG/DL (74-106) H Calcium Level 8.6 MG/DL (8.5-10.1) Troponin I 0.082 ng/mL (0.000-0.056) Pro-B-Type Natriuretic Peptide 1805 pg/mL (0-125) H Triglycerides Level 93 MG/DL (30-150) Cholesterol Level 119 MG/DL (< 200) LDL Cholesterol 51 mg/dL (<100) HDL Cholesterol 28 MG/DL (40-60) L Cholesterol/HDL Ratio 4.3 (3.3-4.4) Current Medications Medications (Trade) Dose Ordered Sig/Elizabeth Route PRN Reason Start Time Stop Time Status Last Admin Dose Admin Albuterol/ Ipratropium (Albuterol/ Ipratropium) 3 ml Q6HRT HHN 05/29/19 13:00 06/03/19 12:59 05/30/19 12:39 Aspirin (ASA) 81 mg DAILY ORAL 05/30/19 09:00 06/29/19 08:59 Atorvastatin Calcium (Lipitor) 20 mg BEDTIME ORAL 05/29/19 21:00 06/28/19 20:59 Clopidogrel Bisulfate (Plavix) 75 mg DAILY ORAL 05/30/19 09:00 06/29/19 08:59 Dextrose (Dextrose 50%) 25 ml Q30M PRN IV Hypoglycemia 05/29/19 08:45 06/28/19 08:44 Dextrose (Dextrose 50%) 50 ml Q30M PRN IV Hypoglycemia 05/29/19 08:45 06/28/19 08:44 Divalproex Sodium (Depakote Sprinkles) 125 mg BID ORAL 05/29/19 18:00 06/28/19 17:59 Docusate Sodium (Colace) 100 mg THREE TIMES A DAY ORAL 05/29/19 13:00 06/28/19 12:59 Donepezil HCl (Aricept) 10 mg DAILY ORAL 05/30/19 09:00 06/29/19 08:59 Heparin Sodium (Porcine) (Heparin 5000 units/ml) 5,000 units EVERY 12 HOURS SUBQ 05/29/19 09:00 06/28/19 08:59 05/29/19 21:34 Insulin Aspart (NovoLOG) BEFORE MEALS AND HS SUBQ 05/29/19 11:30 06/28/19 11:29 05/29/19 17:21 Ipratropium [place] (Atrovent) 500 mcg Q6H PRN HHN Shortness of Breath 05/29/19 10:00 06/03/19 09:59 Lidocaine (Lidoderm 5% PATCH) 1 patch DAILY TDERMAL 05/30/19 09:00 06/29/19 08:59 Linezolid 300 ml @ 300 mls/hr Q12H IVPB 05/29/19 17:00 06/05/19 16:59 05/30/19 05:00 Methylprednisolone Sodium Succinate (Solu-MEDROL) 40 mg EVERY 12 HOURS IVP 05/29/19 21:00 06/28/19 20:59 05/30/19 09:18 Metoprolol Tartrate (Lopressor) 25 mg EVERY 12 HOURS ORAL 05/29/19 21:00 06/28/19 20:59 Piperacillin Sod/ Tazobactam Sod 3.375 gm/Sodium Chloride 110 ml @ 27.5 mls/hr Q8H IVPB 05/29/19 16:00 06/05/19 15:59 05/30/19 08:00 Sodium Chloride 1,000 ml @ 50 mls/hr Q20H IV 05/29/19 12:00 06/28/19 11:59 05/30/19 08:00 Tamsulosin HCl (Flomax) 0.4 mg DAILY ORAL 05/30/19 09:00 06/29/19 08:59 Melina Jones M.D. May 30, 2019 13:32
--- NOTE | 2019-05-30 13:53 | Pulmonology Progress Note ---
Assessment/Plan Problems: (1) Basal pneumonia of both lungs (2) Dysphasia (3) Leukocytosis (4) COPD (chronic obstructive pulmonary disease) (5) AMOS (acute kidney injury) (6) Respiratory failure with hypoxia (7) Elevated WBC count (8) Failure to thrive Assessment/Plan ASSESSMENT: The patient is an 88-year-old male with a history of dementia, chronic obstructive pulmonary disease, prior sternotomy, congestive heart failure, and sick sinus syndrome, status post pacemaker, presenting with a respiratory illness, likely healthcare-associated pneumonia with acute kidney injury and dehydration. PROBLEM LIST: 1. Healthcare-associated pneumonia. 2. Acute hypoxemic respiratory failure secondary to above. 3. Acute kidney injury. 4. Dehydration. 5. Non ST-elevation myocardial infarction, likely demand ischemia. 6. Chronic obstructive pulmonary disease with acute exacerbation. 7. Hypertension. 8. Hypertensive heart disease. 9. Hyperlipidemia. 10. Diabetes type 2. 11. CAD, status post CABG and PCI. 12. History of Mobitz type II heart block and sick sinus syndrome,status post pacemaker. 13. Peripheral vascular disease. 14. History of angioedema in the past. 15. Dementia. TREATMENT PLAN: 1. Optimize pulmonary hygiene/mobilize as tolerated. 2. Titrate down FiO2 to keep saturations greater than 90%. 3. Rcuwf-mbi-xvtsq and p.r.n. bronchodilators. 4. Decreased Solu-Medrol to 30 mg IV b.i.d. and taper. 5. Antibiotics (Zosyn/Zyvox) per ID. 6. Monitor volumes and renal function, mIVF 7. Aspiration precautions, n.p.o., swallow evaluation when more alert. Plan for NGT 8. DVT prophylaxis, heparin subcutaneous. 9. Check AMMONIA, CT HEAD 10. Duplex and D-dimer 11. The patient is Full Code, continue to discuss goals of care. Subjective Allergies: Coded Allergies: ACETAMINOPHEN (Verified Allergy, Unknown, 05/29/19) HYDROCODONE (Verified Allergy, Unknown, 05/29/19) Subjective AFVSS on 8L FM obtunded No cough no distress no wheezing no FC Objective Last 24 Hour Vital Signs Date Time Temp Pulse Resp B/P (MAP) Pulse Ox O2 Delivery O2 Flow Rate FiO2 05/30/19 12:49 61 20 99 Simple Mask 8.0 50 60 20 96 05/30/19 12:04 96.6 19 105/47 (66) 64 05/30/19 12:04 8.0 05/30/19 09:00 Simple Mask 8.0 05/30/19 08:00 71 05/30/19 08:00 8.0 05/30/19 08:00 98.2 19 103/74 (84) 65 05/30/19 07:28 72 18 100 Simple Mask 8.0 50 61 18 97 05/30/19 07:17 97 Simple Mask 8.0 50 05/30/19 04:00 8.0 05/30/19 04:00 69 05/30/19 01:05 75 18 99 Simple Mask 8.0 40 70 19 97 05/30/19 00:00 84 05/29/19 21:00 97 94/41 05/29/19 21:00 Simple Mask 8.0 05/29/19 20:00 8.0 05/29/19 20:00 62 05/29/19 19:21 72 19 99 Simple Mask 8.0 40 68 22 97 05/29/19 19:05 97 Simple Mask 8.0 45 05/29/19 19:00 115/65 (82) 05/29/19 17:00 125/75 (92) 68 05/29/19 16:00 97.3 112/65 (81) 67 05/29/19 16:00 65 05/29/19 16:00 8.0 05/29/19 15:30 96/54 (68) 66 05/29/19 15:00 102/51 (68) 72 05/29/19 14:30 101/48 (65) 68 05/29/19 14:00 93/50 (64) 92 Intake and Output 05/29/19 05/30/19 19:00 07:00 Output Total 150 ml 600 ml Balance -150 ml -600 ml Output Urine Total 150 ml 600 ml General Appearance: other - obtunded HEENT: normocephalic, atraumatic, anicteric, mucous membranes moist Respiratory/Chest: rhonchi - distant Cardiovascular: normal peripheral pulses, normal rate, regular rhythm Abdomen: normal bowel sounds, soft, non tender, no organomegaly, non distended , no mass Extremities: no cyanosis, no clubbing, no edema Microbiology Date/Time Source Procedure Growth Status 05/29/19 17:50 Sputum Expectorated Gram Stain - Final Resulted 05/29/19 17:50 Sputum Expectorated Sputum Culture Pending Resulted 05/29/19 04:24 Nasal Nares - Final Complete 05/29/19 04:24 Nasal Nares - Final Complete 05/29/19 04:00 Rectum Received Laboratory Tests 05/30/19 05:23: White Blood Count 11.2H, Red Blood Count 3.25L, Hemoglobin 10.4L, Hematocrit 30.6L, Mean Corpuscular Volume 94, Mean Corpuscular Hemoglobin 31.9H, Mean Corpuscular Hemoglobin Concent 33.9, Red Cell Distribution Width 16.4H, Platelet Count 244, Mean Platelet Volume 5.8L, Neutrophils (%) (Auto) , Lymphocytes (%) (Auto) , Monocytes (%) (Auto) , Eosinophils (%) (Auto) , Basophils (%) (Auto) , Sodium Level 142, Potassium Level 4.2, Chloride Level 107 , Carbon Dioxide Level 24, Anion Gap 12, Blood Urea Nitrogen 44H, Creatinine 1.9H, Estimat Glomerular Filtration Rate 33.5, Glucose Level 283H, Calcium Level 8.6, Troponin I 0.082H, Pro-B-Type Natriuretic Peptide 1805H, Triglycerides Level 93, Cholesterol Level 119, LDL Cholesterol 51, HDL Cholesterol 28L, Cholesterol/HDL Ratio 4.3 Current Medications Medications (Trade) Dose Ordered Sig/Elizabeth Route PRN Reason Start Time Stop Time Status Last Admin Dose Admin Albuterol/ Ipratropium (Albuterol/ Ipratropium) 3 ml Q6HRT HHN 05/29/19 13:00 06/03/19 12:59 05/30/19 12:39 Aspirin (ASA) 81 mg DAILY ORAL 05/30/19 09:00 06/29/19 08:59 Atorvastatin Calcium (Lipitor) 20 mg BEDTIME ORAL 05/29/19 21:00 06/28/19 20:59 Clopidogrel Bisulfate (Plavix) 75 mg DAILY ORAL 05/30/19 09:00 06/29/19 08:59 Dextrose (Dextrose 50%) 25 ml Q30M PRN IV Hypoglycemia 05/29/19 08:45 06/28/19 08:44 Dextrose (Dextrose 50%) 50 ml Q30M PRN IV Hypoglycemia 05/29/19 08:45 06/28/19 08:44 Divalproex Sodium (Depakote Sprinkles) 125 mg BID ORAL 05/29/19 18:00 06/28/19 17:59 Docusate Sodium (Colace) 100 mg THREE TIMES A DAY ORAL 05/29/19 13:00 06/28/19 12:59 Donepezil HCl (Aricept) 10 mg DAILY ORAL 05/30/19 09:00 06/29/19 08:59 Heparin Sodium (Porcine) (Heparin 5000 units/ml) 5,000 units EVERY 12 HOURS SUBQ 05/29/19 09:00 06/28/19 08:59 05/29/19 21:34 Insulin Aspart (NovoLOG) BEFORE MEALS AND HS SUBQ 05/29/19 11:30 06/28/19 11:29 05/29/19 17:21 Ipratropium [place] (Atrovent) 500 mcg Q6H PRN HHN Shortness of Breath 05/29/19 10:00 06/03/19 09:59 Lidocaine (Lidoderm 5% PATCH) 1 patch DAILY TDERMAL 05/30/19 09:00 06/29/19 08:59 Linezolid 300 ml @ 300 mls/hr Q12H IVPB 05/29/19 17:00 06/05/19 16:59 05/30/19 05:00 Methylprednisolone Sodium Succinate (Solu-MEDROL) 40 mg EVERY 12 HOURS IVP 05/29/19 21:00 06/28/19 20:59 05/30/19 09:18 Metoprolol Tartrate (Lopressor) 25 mg EVERY 12 HOURS ORAL 05/29/19 21:00 06/28/19 20:59 Piperacillin Sod/ Tazobactam Sod 3.375 gm/Sodium Chloride 110 ml @ 27.5 mls/hr Q8H IVPB 05/29/19 16:00 06/05/19 15:59 05/30/19 08:00 Sodium Chloride 1,000 ml @ 50 mls/hr Q20H IV 05/29/19 12:00 06/28/19 11:59 05/30/19 08:00 Tamsulosin HCl (Flomax) 0.4 mg DAILY ORAL 05/30/19 09:00 06/29/19 08:59 Kenny Rich MD May 30, 2019 13:53
--- NOTE | 2019-05-30 15:39 | Diagnostic Imaging Report ---
Indication: Post nasogastric tube placement Technique: Supine view of the abdomen Comparison: none Findings: There is a nasogastric tube in place. This makes a hairpin loop in the distal esophagus, tip pointed cephalad, projected beyond the upper edge of the image but probably within the hypopharynx or cervical esophagus. The bowel gas pattern is unremarkable. There is evidence of prior median sternotomy and there is a left chest pacemaker Impression: Malposition of nasogastric tube, as described. Removal and replacement recommended. This critical finding was phoned to patient's nurse at the time of interpretation
--- NOTE | 2019-05-30 15:41 | Diagnostic Imaging Report ---
Indication: Bilateral lower extremity edema, shortness of breath Technique: Grayscale and duplex images of the bilateral lower extremity veins Comparison: none Findings: Bilaterally, grayscale and duplex images demonstrate no evidence of intraluminal thrombus. Normal phasic Doppler waveforms, demonstrating normal augmentation response and no evidence of valvular insufficiency. Normal compressibility. Patent greater saphenous and calf veins bilaterally. Impression: Negative for lower extremity deep venous thrombosis bilaterally
--- NOTE | 2019-05-30 15:49 | Cardiac Electrophysiology PN ---
Assessment/Plan Assessment/Plan 1. Non-ST elevation myocardial infarction likely type 2 in view of the patient's renal failure. This is likely due to demand ischemia in view of patient's sepsis, white count of 20,000. The patient also has renal failure with creatinine of 2.8. Echo showed Nl EF 55%. LE duplex no DVT On aspirin, beta-ana, and statin. Hx of CABG 2. Status post pacemaker. We will have to find out the brand as the son does not know the brand of the pacemaker and the patient is nonverbal. 3. Sepsis, COPD, pneumonia. The patient is on ceftriaxone, azithromycin. 4. Advanced dementia. 5. Dysphagia, NGT placement FU Dr. Miner Family refused PEG Subjective Subjective No events. Had NGT replacement. A pacing on tele. Objective Last 24 Hour Vital Signs Date Time Temp Pulse Resp B/P (MAP) Pulse Ox O2 Delivery O2 Flow Rate FiO2 05/30/19 12:49 61 20 99 Simple Mask 8.0 50 60 20 96 05/30/19 12:04 96.6 19 105/47 (66) 64 05/30/19 12:04 8.0 05/30/19 12:00 79 05/30/19 09:00 Simple Mask 8.0 05/30/19 08:00 71 05/30/19 08:00 8.0 05/30/19 08:00 98.2 19 103/74 (84) 65 05/30/19 07:28 72 18 100 Simple Mask 8.0 50 61 18 97 05/30/19 07:17 97 Simple Mask 8.0 50 05/30/19 04:00 8.0 05/30/19 04:00 69 05/30/19 01:05 75 18 99 Simple Mask 8.0 40 70 19 97 05/30/19 00:00 84 05/29/19 21:00 97 94/41 05/29/19 21:00 Simple Mask 8.0 05/29/19 20:00 8.0 05/29/19 20:00 62 05/29/19 19:21 72 19 99 Simple Mask 8.0 40 68 22 97 05/29/19 19:05 97 Simple Mask 8.0 45 05/29/19 19:00 115/65 (82) 05/29/19 17:00 125/75 (92) 68 05/29/19 16:00 97.3 112/65 (81) 67 05/29/19 16:00 65 05/29/19 16:00 8.0 Intake and Output 05/29/19 05/30/19 19:00 07:00 Output Total 150 ml 600 ml Balance -150 ml -600 ml Output Urine Total 150 ml 600 ml Laboratory Tests Test 05/30/19 05:23 White Blood Count 11.2 K/UL (4.8-10.8) H Red Blood Count 3.25 M/UL (4.70-6.10) L Hemoglobin 10.4 G/DL (14.2-18.0) L Hematocrit 30.6 % (42.0-52.0) L Mean Corpuscular Volume 94 FL (80-99) Mean Corpuscular Hemoglobin 31.9 PG (27.0-31.0) H Mean Corpuscular Hemoglobin Concent 33.9 G/DL (32.0-36.0) Red Cell Distribution Width 16.4 % (11.6-14.8) H Platelet Count 244 K/UL (150-450) Mean Platelet Volume 5.8 FL (6.5-10.1) L Neutrophils (%) (Auto) % (45.0-75.0) Lymphocytes (%) (Auto) % (20.0-45.0) Monocytes (%) (Auto) % (1.0-10.0) Eosinophils (%) (Auto) % (0.0-3.0) Basophils (%) (Auto) % (0.0-2.0) Sodium Level 142 MMOL/L (136-145) Potassium Level 4.2 MMOL/L (3.5-5.1) Chloride Level 107 MMOL/L (98-107) Carbon Dioxide Level 24 MMOL/L (21-32) Anion Gap 12 mmol/L (5-15) Blood Urea Nitrogen 44 mg/dL (7-18) H Creatinine 1.9 MG/DL (0.55-1.30) H Estimat Glomerular Filtration Rate 33.5 mL/min (>60) Glucose Level 283 MG/DL (74-106) H Calcium Level 8.6 MG/DL (8.5-10.1) Troponin I 0.082 ng/mL (0.000-0.056) Pro-B-Type Natriuretic Peptide 1805 pg/mL (0-125) H Triglycerides Level 93 MG/DL (30-150) Cholesterol Level 119 MG/DL (< 200) LDL Cholesterol 51 mg/dL (<100) HDL Cholesterol 28 MG/DL (40-60) L Cholesterol/HDL Ratio 4.3 (3.3-4.4) Microbiology Date/Time Source Procedure Growth Status 05/29/19 17:50 Sputum Expectorated Gram Stain - Final Resulted 05/29/19 17:50 Sputum Expectorated Sputum Culture Pending Resulted 05/29/19 04:24 Nasal Nares - Final Complete 05/29/19 04:24 Nasal Nares - Final Complete 05/29/19 04:00 Rectum Received Objective HEAD AND NECK: No JVD.NGT in [place LUNGS: Coarse rhonchi. CARDIOVASCULAR: Regular S1 and S2 with no gallop or murmur. ABDOMEN: Soft. EXTREMITIES: No pitting edema. Sunny Cunningham MD May 30, 2019 15:49
[2019-05-30 16:00] VITALS: BP 175/59
--- NOTE | 2019-05-30 16:23 | NUR ---
*-*DISCHARGE PANNING*-* S/W ADMISSIONS @ [facility] WHO CONFIRMED THEY WILL ACCEPT PATIENT BACK UPON DISCHARGE [facility] P:[phone] F:[phone]
--- NOTE | 2019-05-30 17:26 | NUR ---
NURSE NOTES:WOUND CARE NOTES:Unable to see pt today .Per Primary nurse pt is not stable . Will follow-up in a.m.
--- NOTE | 2019-05-30 19:30 | NUR ---
NURSE NOTES: Received patient from Pop POLLOCK. Patient in bed, on simple mask 8L, no signs of respiratory distress. Patient is restless, non compliant and resistant to care. Confused, unable to follow directions. Bilateral soft wrist restraints on. Trejo catheter intact. NS infusing at 50ml/hr through left wrist 22 gauge. Bed in low position, locked, bed alarm on, call light within reach.
[2019-05-30] MEDS ORDERED: DIVALPROEX SOD125 M1 PO (19:35)
[2019-05-30] MEDS ORDERED: FERROUS SU220 MG/51 PO (19:35)
--- NOTE | 2019-05-30 19:45 | NUR ---
NURSE NOTES: Radiology at bedside to do KUB, NGT tube not in place, NGT removed.
[2019-05-30 20:00] VITALS: BP 116/44
[2019-05-30] MEDS: Atorvastatin 20mg tab ORAL SCH (21:00)
[2019-05-31] VITALS: BP 119/49
--- NOTE | 2019-05-31 01:00 | NUR ---
NURSE NOTES: Found patient pulling at kc catheter. Patient would not let go after being instructed to do so.
[2019-05-31] MEDS: Albuterol/Ipratropium 3ml neb HHN SCH ×4 (01:21→19:31)
[2019-05-31 04:00] VITALS: BP 157/77
[2019-05-31] MEDS: NovoLOG Insulin Flexpen SUBQ SCH ×4 (06:30→22:09)
[2019-05-31 07:33] LABS: HEMATOCRIT 28.5 % (42.0-52.0); HEMOGLOBIN 9.5 G/DL (14.2-18.0); MEAN CORPUSCULAR VOLUME 93 FL (80-99); PLATELET COUNT 270 K/UL (150-450); RED BLOOD COUNT 3.06 M/UL (4.70-6.10); RED CELL DISTRIBUTION WIDTH 16.3 % (11.6-14.8); WHITE BLOOD COUNT 11.9 K/UL (4.8-10.8)
--- NOTE | 2019-05-31 07:55 | NUR ---
NURSE NOTES: Pt awake and pulling on kc, even while being on restrain penis is red and urine is pink. Pt takes NC and has managed to pulled out IV out earlier in the day, night RN unable to put a new IV pt kicks and hits. Will try to put new IV line. pt on monitoring coordinator no signs of cardiac or respiratory distress. Addendum: 05/31/19 at 0825 by Trini Ward RN NURSE NOTES: Pt awake and pulling on kc, even while being on restrain penis is red and urine is pink. Pt takes NC and has managed to pulled out IV out earlier in the day, night RN unable to put a new IV pt kicks and hits. Will try to put new IV line. pt on monitoring coordinator no signs of cardiac or respiratory distress. pt bed in lowest position and locked. Call light within reach. Pt still need to have NG tube placement, pt has been NPO for a few days aldready. Will continue to follow plans of care and monitor pt.
[2019-05-31] MEDS: Piperacillin/Tazobactam 3.375 GM in NS 110 ML IVPB SCH ×4 (08:00→23:14)
--- NOTE | 2019-05-31 08:02 | NUR ---
HAND-OFF: Report given to Trini POLLOCK.
[2019-05-31 08:21] LABS: ANION GAP 11 mmol/L (5-15); BLOOD UREA NITROGEN 32 mg/dL (7-18); CALCIUM 8.8 MG/DL (8.5-10.1); CARBON DIOXIDE 23 MMOL/L (21-32); CHLORIDE 108 MMOL/L (98-107); CREATININE 1.5 MG/DL (0.55-1.30); POTASSIUM 3.6 MMOL/L (3.5-5.1); SODIUM 142 MMOL/L (136-145)
--- NOTE | 2019-05-31 08:59 | NUR ---
NURSE NOTES: pt prescribed ativan .025 for agitation q12hrs by Dr. Cross,. Also he cancelled CT of head no contrast pt does not need it at this moment he is fully alert now.
[2019-05-31] MEDS: Aspirin Baby 81mg ORAL SCH (09:00)
[2019-05-31] MEDS: Tamsulosin 0.4mg cap ORAL SCH (09:00)
[2019-05-31] MEDS: Solu-MEDROL 40mg Inj IVP SCH ×3 (09:00→23:10)
[2019-05-31] MEDS: Docusate 100mg cap ORAL SCH ×3 (09:00→18:00)
[2019-05-31] MEDS: Donepezil 10mg tab ORAL SCH (09:00)
--- NOTE | 2019-05-31 09:04 | General Progress Note ---
Assessment/Plan Status: stable Assessment/Plan: 1. Pneumonia - cont IV Abx 2. Leukocytosis improving, possible sepsis - cont IV abx. 3. Elevated Troponin 2nd to NSTEMI due to demand Ischemia most likely due to DALILA and sepsis - cardiology following. 4. COPD exacerbation - on solumedrol and pulmonary following. 5. Hypotension 2nd to sepsis and pneumonia - improving. will hold hypertensive meds for now. 6. Dementia - will restart home meds after NG tube placement by Dr Larsen. failed NG tube x 2. Now that he is awake, will recheck Swallowing eval. 7. Acute Hypoxemic respiratory Failure 2nd to pneumonia and sepsis 8. AMOS - improving with hydration. 9. Hypertensive heart disease 10. HLD - will resume med after NG tube placement. 11. DM II - Insulin on hold until NG tube is placed. 12. CAD s/p CABG and stent placement. 13. H/O PVD 14. H/O angioedema in the past. Subjective Date patient seen: May 31, 2019 Time patient seen: 08:40 Constitutional: Reports: no symptoms HEENT: Reports: no symptoms Cardiovascular: Reports: no symptoms Respiratory: Reports: no symptoms Gastrointestinal/Abdominal: Reports: no symptoms Genitourinary: Reports: no symptoms Neurologic/Psychiatric: Reports: no symptoms Endocrine: Reports: no symptoms Hematologic/Lymphatic: Reports: no symptoms Allergies: Coded Allergies: ACETAMINOPHEN (Verified Allergy, Unknown, 05/29/19) HYDROCODONE (Verified Allergy, Unknown, 05/29/19) Subjective This morning he is aggitated and fully awake. He pulled his IV line. Afebrile and His WBC improving. Objective Last 24 Hour Vital Signs Date Time Temp Pulse Resp B/P (MAP) Pulse Ox O2 Delivery O2 Flow Rate FiO2 05/31/19 04:26 86 05/31/19 04:00 97.5 84 20 157/77 (103) 97 05/31/19 01:21 62 20 99 Simple Mask 8.0 50 60 20 96 05/31/19 00:00 96 05/31/19 00:00 97.2 66 17 119/49 (72) 97 05/30/19 21:00 Simple Mask 8.0 05/30/19 21:00 64 116/46 05/30/19 20:00 97.5 64 18 116/44 (68) 96 05/30/19 20:00 74 2/13/20 19:40 97 Simple Mask 8.0 50 05/30/19 19:40 66 20 99 Simple Mask 8.0 50 64 20 97 05/30/19 17:33 8.0 05/30/19 16:00 98.6 18 175/59 (97) 60 05/30/19 16:00 89 05/30/19 12:49 61 20 99 Simple Mask 8.0 50 60 20 96 05/30/19 12:04 96.6 19 105/47 (66) 64 05/30/19 12:04 8.0 05/30/19 12:00 79 05/30/19 09:00 Simple Mask 8.0 Intake and Output 05/30/19 05/31/19 19:00 07:00 Output Total 700 ml 1100 ml Balance -700 ml -1100 ml Output Urine Total 700 ml 1100 ml Laboratory Tests 05/30/19 16:47: D-Dimer 2.44H, Ammonia 11 05/31/19 05:45: White Blood Count 11.9H, Red Blood Count 3.06L, Hemoglobin 9.5L, Hematocrit 28.5L, Mean Corpuscular Volume 93, Mean Corpuscular Hemoglobin 31.1H, Mean Corpuscular Hemoglobin Concent 33.5, Red Cell Distribution Width 16.3H, Platelet Count 270, Mean Platelet Volume 5.7L, Neutrophils (%) (Auto) , Lymphocytes (%) (Auto) , Monocytes (%) (Auto) , Eosinophils (%) (Auto) , Basophils (%) (Auto) , Neutrophils % (Manual) [Pending], Lymphocytes % (Manual) [Pending], Platelet Estimate [Pending], Platelet Morphology [Pending], Sodium Level 142, Potassium Level 3.6, Chloride Level 108H, Carbon Dioxide Level 23, Anion Gap 11, Blood Urea Nitrogen 32H, Creatinine 1.5H, Estimat Glomerular Filtration Rate 44.1, Glucose Level 258H, Calcium Level 8.8 Height (Feet): 5 Height (Inches): 11.00 Weight (Pounds): 200 General Appearance: no apparent distress, alert EENT: normal ENT inspection Neck: non-tender, supple Cardiovascular: normal rate, regular rhythm Respiratory/Chest: chest wall non-tender, lungs clear, normal breath sounds, no respiratory distress Abdomen: non tender, soft Extremities: normal range of motion, non-tender Edema: no edema noted Arm (L), no edema noted Arm (R), no edema noted Leg (L), no edema noted Leg (R), no edema noted Pedal (L), no edema noted Pedal (R), no edema noted Generalized Neurologic: alert, responsive Skin: warm/dry Ronaldo Muniz MD May 31, 2019 09:04
--- NOTE | 2019-05-31 09:45 | NUR ---
NURSE NOTES:WOUND CARE NOTES:Pt observed very restless in bed and is easily agitated.On entry at pt's bedside, observed pt pulling on F/C.Took much effort to release cath from pt's grasp. Small amt sanguineous exudate noted in catheter. Pt did calm down to allow for staff to assess skin. Partial thickness pressure injury noted to sacrum (L)3cm x (W)2.5cm with surrounding non-blanching erythema without induration(L)9.5cm x (W)6.5cm. Both heels are soft but blanchable. Moisture Barrier Paste applied to Sacrum and covered with Optifoam drsg. Additional moisture Barrier Paste applied to both ischial areas and scrotum to minimize friction on skin.Cavilon Skin Barrier applied to both hips and each hip covered with Optifoam drsgs. Cavilon Skin Barrier applied to both heels. Each heel covered with Optifoam drsgs. Pt positioned with pillow on his R side. Both heels floated off mattress with pillow. Tx.plan: Apply Moisture Barrier Paste to Sacrum. Cover with Optifoam drsg. Change every 3 days and prn. Apply Cavilon Skin Barrier to R and L hips. Cover each hip with Optifoam drsg. Change every 7 days and prn. Apply Cavilon Skin Barrier to both heels. Cover each heel with Optifoam drsg. Change every 7 days and prn. Reposition at least every 2hours or as tolerated. Off-load heels with pillow.
--- NOTE | 2019-05-31 10:50 | NUR ---
Spoke with MARIS Feliz regarding order for V/Q scan. Per Trini, pt does not have IV access at this time. Pt is also restless and easily becomes agitated. Pt is unable to follow instructions. Trini to contact nuclear medicine department if pt is calm and able to perform V/Q scan. Addendum: 05/31/19 at 1440 by DAVID NIX NM Lung V/Q Scan complete
[2019-05-31] MEDS: Heparin 5000 units/ml inj SUBQ SCH ×2 (10:51→21:00)
[2019-05-31] MEDS: Depakote 125mg Sprinkles ORAL SCH ×2 (11:00→21:58)
--- NOTE | 2019-05-31 11:07 | Cardiac Electrophysiology PN ---
Assessment/Plan Assessment/Plan 1. Non-ST elevation myocardial infarction type 2 in view of renal failure. Due to demand ischemia in view of patient's sepsis, white count of 20,000. The patient also has renal failure with creatinine of 2.8. Echo showed Nl EF 55%. LE duplex no DVT On aspirin, beta-ana, and statin. Hx of CABG 2. Status post [facility] D[facility] pacemaker. Interrogated and showed Nl Fx. Battery more than a year left 3. Sepsis, COPD, pneumonia. The patient is on ceftriaxone, azithromycin. 4. Advanced dementia. 5. Dysphagia, Swallow eval pending. Family refused PEG DW RN and son Subjective Subjective Confused in restraints. Son at bedside. NGT removed twice as was in esophagus. Awaiting swallow eval. A pacing on tele. Pacer interrogation showed Nl Fx Objective Last 24 Hour Vital Signs Date Time Temp Pulse Resp B/P (MAP) Pulse Ox O2 Delivery O2 Flow Rate FiO2 05/31/19 07:45 104 18 98 Nasal Cannula 2.0 28 83 18 97 05/31/19 07:45 97 Nasal Cannula 2.0 28 05/31/19 04:26 86 05/31/19 04:00 97.5 84 20 157/77 (103) 97 05/31/19 01:21 62 20 99 Simple Mask 8.0 50 60 20 96 05/31/19 00:00 96 05/31/19 00:00 97.2 66 17 119/49 (72) 97 05/30/19 21:00 Simple Mask 8.0 05/30/19 21:00 64 116/46 05/30/19 20:00 97.5 64 18 116/44 (68) 96 05/30/19 20:00 74 05/30/19 19:40 97 Simple Mask 8.0 50 05/30/19 19:40 66 20 99 Simple Mask 8.0 50 64 20 97 05/30/19 17:33 8.0 05/30/19 16:00 98.6 18 175/59 (97) 60 05/30/19 16:00 89 05/30/19 12:49 61 20 99 Simple Mask 8.0 50 60 20 96 05/30/19 12:04 96.6 19 105/47 (66) 64 05/30/19 12:04 8.0 05/30/19 12:00 79 Intake and Output 05/30/19 05/31/19 19:00 07:00 Output Total 700 ml 1100 ml Balance -700 ml -1100 ml Output Urine Total 700 ml 1100 ml Laboratory Tests Test 05/30/19 16:47 05/31/19 05:45 D-Dimer 2.44 mg/L FEU (0.00-0.49) H Ammonia 11 umol/L (11-32) White Blood Count 11.9 K/UL (4.8-10.8) H Red Blood Count 3.06 M/UL (4.70-6.10) L Hemoglobin 9.5 G/DL (14.2-18.0) L Hematocrit 28.5 % (42.0-52.0) L Mean Corpuscular Volume 93 FL (80-99) Mean Corpuscular Hemoglobin 31.1 PG (27.0-31.0) H Mean Corpuscular Hemoglobin Concent 33.5 G/DL (32.0-36.0) Red Cell Distribution Width 16.3 % (11.6-14.8) H Platelet Count 270 K/UL (150-450) Mean Platelet Volume 5.7 FL (6.5-10.1) L Neutrophils (%) (Auto) % (45.0-75.0) Lymphocytes (%) (Auto) % (20.0-45.0) Monocytes (%) (Auto) % (1.0-10.0) Eosinophils (%) (Auto) % (0.0-3.0) Basophils (%) (Auto) % (0.0-2.0) Differential Total Cells Counted 100 Neutrophils % (Manual) 91 % (45-75) H Lymphocytes % (Manual) 6 % (20-45) L Monocytes % (Manual) 3 % (1-10) Eosinophils % (Manual) 0 % (0-3) Basophils % (Manual) 0 % (0-2) Band Neutrophils 0 % (0-8) Platelet Estimate Adequate Platelet Morphology Normal Anisocytosis 1+ Sodium Level 142 MMOL/L (136-145) Potassium Level 3.6 MMOL/L (3.5-5.1) Chloride Level 108 MMOL/L (98-107) H Carbon Dioxide Level 23 MMOL/L (21-32) Anion Gap 11 mmol/L (5-15) Blood Urea Nitrogen 32 mg/dL (7-18) H Creatinine 1.5 MG/DL (0.55-1.30) H Estimat Glomerular Filtration Rate 44.1 mL/min (>60) Glucose Level 258 MG/DL (74-106) H Calcium Level 8.8 MG/DL (8.5-10.1) Microbiology Date/Time Source Procedure Growth Status 05/29/19 12:15 Blood Blood Culture - Preliminary NO GROWTH AFTER 24 HOURS Resulted 05/29/19 12:00 Blood Blood Culture - Preliminary NO GROWTH AFTER 24 HOURS Resulted 05/29/19 17:50 Sputum Expectorated Gram Stain - Final Resulted 05/29/19 17:50 Sputum Culture - Preliminary Pseudomonas Species Resulted 05/29/19 04:24 Nasal Nares - Final Complete 05/29/19 04:24 Nasal Nares - Final Complete 05/29/19 04:00 Nasal Nares MRSA Culture - Final NO METHICILLIN RESISTANT STAPH AUREUS... Complete 05/29/19 04:00 Rectum - Final NO CARBAPENEM-RESISTANT ENTEROBACTERI... Complete 05/29/19 04:00 Rectum VRE Culture - Final Enterococcus Faecalis - Vre Complete Objective HEAD AND NECK: No JVD. LUNGS: Coarse rhonchi. CARDIOVASCULAR: Regular S1 and S2 with no gallop or murmur. ABDOMEN: Soft. EXTREMITIES: No pitting edema. Sunny Cunningham MD May 31, 2019 11:07
[2019-05-31 11:30] VITALS: BP 131/68
[2019-05-31 12:00] VITALS: BP 158/70
--- NOTE | 2019-05-31 12:18 | GI Progress Note ---
Assessment/Plan Problems: (1) Failure to thrive SNOMED: 38172583 (2) Dysphasia ICD Codes: R47.02 - Dysphasia SNOMED: 17002063 Status: progressing, unchanged Status Narrative Discussed with Dr. Miner. Assessment/Plan History of pacemaker placement, currently on Plavix. unsuccessful NGT placement patient is more awake and alert today ST evaluation to advance diet will consider Dobbhoff if necessary. anemia work up OB stool r/o GI bleed monitor H&H, prn transfusions bowel regimen ppi fu labs We will follow with additional recommendations on a daily basis The patient was seen and examined at bedside and all new and available data was reviewed in the patients chart. I agree with the above findings, impression and plan. (Patient seen earlier today. Signature stamp does not reflect patient encounter time.). - Jarad Miner MD Subjective Gastrointestinal/Abdominal: Reports: no symptoms Objective Last 24 Hour Vital Signs Date Time Temp Pulse Resp B/P (MAP) Pulse Ox O2 Delivery O2 Flow Rate FiO2 05/31/19 11:30 98.2 70 19 131/68 (89) 94 05/31/19 09:00 Nasal Cannula 2.0 05/31/19 07:45 104 18 98 Nasal Cannula 2.0 28 83 18 97 05/31/19 07:45 97 Nasal Cannula 2.0 28 05/31/19 04:26 86 05/31/19 04:00 97.5 84 20 157/77 (103) 97 05/31/19 01:21 62 20 99 Simple Mask 8.0 50 60 20 96 05/31/19 00:00 96 05/31/19 00:00 97.2 66 17 119/49 (72) 97 05/30/19 21:00 Simple Mask 8.0 05/30/19 21:00 64 116/46 05/30/19 20:00 97.5 64 18 116/44 (68) 96 05/30/19 20:00 74 05/30/19 19:40 97 Simple Mask 8.0 50 05/30/19 19:40 66 20 99 Simple Mask 8.0 50 64 20 97 05/30/19 17:33 8.0 05/30/19 16:00 98.6 18 175/59 (97) 60 05/30/19 16:00 89 05/30/19 12:49 61 20 99 Simple Mask 8.0 50 60 20 96 Intake and Output 05/30/19 05/31/19 19:00 07:00 Output Total 700 ml 1100 ml Balance -700 ml -1100 ml Output Urine Total 700 ml 1100 ml Laboratory Tests Test 05/30/19 16:47 05/31/19 05:45 D-Dimer 2.44 mg/L FEU (0.00-0.49) H Ammonia 11 umol/L (11-32) White Blood Count 11.9 K/UL (4.8-10.8) H Red Blood Count 3.06 M/UL (4.70-6.10) L Hemoglobin 9.5 G/DL (14.2-18.0) L Hematocrit 28.5 % (42.0-52.0) L Mean Corpuscular Volume 93 FL (80-99) Mean Corpuscular Hemoglobin 31.1 PG (27.0-31.0) H Mean Corpuscular Hemoglobin Concent 33.5 G/DL (32.0-36.0) Red Cell Distribution Width 16.3 % (11.6-14.8) H Platelet Count 270 K/UL (150-450) Mean Platelet Volume 5.7 FL (6.5-10.1) L Neutrophils (%) (Auto) % (45.0-75.0) Lymphocytes (%) (Auto) % (20.0-45.0) Monocytes (%) (Auto) % (1.0-10.0) Eosinophils (%) (Auto) % (0.0-3.0) Basophils (%) (Auto) % (0.0-2.0) Differential Total Cells Counted 100 Neutrophils % (Manual) 91 % (45-75) H Lymphocytes % (Manual) 6 % (20-45) L Monocytes % (Manual) 3 % (1-10) Eosinophils % (Manual) 0 % (0-3) Basophils % (Manual) 0 % (0-2) Band Neutrophils 0 % (0-8) Platelet Estimate Adequate Platelet Morphology Normal Anisocytosis 1+ Sodium Level 142 MMOL/L (136-145) Potassium Level 3.6 MMOL/L (3.5-5.1) Chloride Level 108 MMOL/L (98-107) H Carbon Dioxide Level 23 MMOL/L (21-32) Anion Gap 11 mmol/L (5-15) Blood Urea Nitrogen 32 mg/dL (7-18) H Creatinine 1.5 MG/DL (0.55-1.30) H Estimat Glomerular Filtration Rate 44.1 mL/min (>60) Glucose Level 258 MG/DL (74-106) H Calcium Level 8.8 MG/DL (8.5-10.1) Height (Feet): 5 Height (Inches): 11.00 Weight (Pounds): 200 General Appearance: no apparent distress, alert Cardiovascular: normal rate Respiratory/Chest: normal breath sounds, no respiratory distress Abdominal Exam: soft Niko Herrera CRIMINALIST May 31, 2019 12:18
--- NOTE | 2019-05-31 12:45 | NUR ---
NURSE NOTES: per night RN, she endorsed to me that pt has been attempting to pull kc all night even while having restrains on. Also wound nurse caught him pulling on catheter. Per pt's son my dad suffers from urinary retention, "My dad does not like the catheter, he had at at [facility] and he was also attempting to pull catheter all the time.
--- NOTE | 2019-05-31 12:50 | NUR ---
SWALLOW STATUS/RE/EVALUATION: S: PATIENT ALERT, AWAKE, ORIENTED TO TASK. HIS SON WAS PRESENT TO PROVIDE BACKGROUND INFORMATION. PER CHART REVIEW, PATIENT ON PUREE, NECTAR THICK DIET, NO STRAWS, NUTRITIONAL SUPPLEMENTS IN SNF. O: RE/EVALUATION OF OROPHARYNGEAL PHASE OF SWALLOW A: PATIENT GIVEN 4 OZ TRIAL OF PUREE, NTL IN 5ML AMOUNTS VIA SPOON. HE PRESENTS WITH MILD/MOD ORAL AND SUSPECTED PHARYNGEAL PHASE DYSPHAGIA WITH DECREASED MENTATION WHICH LED TO POOR BOLUS ACCEPTANCE AND SENSORIMOTOR DEFICITS RESULTING IN DELAYS IN ORAL PREPARATION/ORAL TRANSIT OF BOLUS AND IN INITIATION OF PHARYNGEAL PHASE OF SWALLOW. PATIENT ENDENTULOUS. XEROSTOMIA NOTED. NO ANTERIOR SPILLAGE OR RESIDUE REMAINING ON LINGUAL SURFACE POST SWALLOW. CLEAR UPPER AIRWAY SOUNDS PRE/POST SWALLOW. NO OVERT S/S OF ASPIRATION WITH P.O. TRIALS. PT ON 2LIT O2 SUPPORT VIA NC. P: PATIENT PRESENTS SAFE TO RESUME MODIFIED TEXTURE DIET MEALTIME PROTOCOL POSTED AT BEDSIDE TO MINIMIZE RISK OF ASPIRATION TOTAL ASSIST WITH MEALS CRUSH CRUSHABLE MEDS/PRESENT IN PUREE RD CONSULT RE: NUTRITIONAL SUPPLEMENTATION (IN THE SNF HE RECEIVED BOOST WITH MEALS BID) ST TO FOLLOW FOR DIET TOLERANCE AND VIDEO SWALLOW STUDY IF NEEDED THANK YOU FOR THIS REFERRAL.
--- NOTE | 2019-05-31 13:17 | NUR ---
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 CURRENT DIET:CCHO MED, PUREED MOIST W/ NTL PO DIET RECOMMENDATIONS: CCHO MED, LOW NA/ texture per ELIGIBILITY COUNSELOR + Glucerna TID w/ meals ENTERAL NUTRITION RECOMMENDATIONS: CONSULT RD IF TF INDICATED ADDITIONAL RECOMMENDATIONS: * Maintain calibrated bedscale wt (SNF lb=484# on 05/22, bedscale yl=108#) * Add Glucerna TID w/ meals (220kcal/10g prot per fermin) * Monitor BGs closely w/ Solumedrol, need for long acting insulin (BGs mostly in the 200's) * F/up w/ wound care eval -> add MVI x 1, Vit C 250mg QD + Jung 1pkt BID * Monitor PO intake, need to liberalize diet for improved PO acceptance
--- NOTE | 2019-05-31 14:16 | NUR ---
*-*DISCHARGE PLANNING*-* PATIENT HAS BEEN REFERRED TO: [address] P: [phone] F: [phone]
--- NOTE | 2019-05-31 16:04 | Diagnostic Imaging Report ---
Indication: Chest pain Technique: A ventilation/perfusion scan was performed. Ventilation was performed utilizing 40 mCi of Technetium 99m-DTPA. Perfusion was performed with 5.1 mCi of technetium 99m-MAA injected intravenously. Multiple side by side projections obtained. Findings: Ventilation is mildly heterogeneous. No significant defects are identified. Perfusion is mildly heterogeneous. No significant defects are identified. No mismatched defects seen. Impression: Low probability for pulmonary embolus Interpretation of findings are based on PICODEYD II amie (2006).
--- NOTE | 2019-05-31 16:45 | NUR ---
NURSE NOTES: 1645 pt was found on the floor by Mariel/FRANKLIN, bed alarm was audible at time of fall, preceded to take vitals signs 142/65 HR 65 R18 [id number] patient was moving body not complaining of any pain when assessed. Neuro assessment completed as well, no bumps or bruising was detected. Assisted pt to bed by additional hospital personnel. Notified family member Mihai/son and Dr. Muniz about situation. Doctor ordered CT of head, pelvis and Lumbar spine.
--- NOTE | 2019-05-31 17:47 | Infectious Diseases Prog Note ---
Assessment/Plan Problems: (1) Basal pneumonia of both lungs Assessment & Plan: confirmed on CT chest , with cough and congestion , suspect aspiration , due to pseudomonas spp already on zosyn pending final sputum culture , aspiration precaution, keep HOB > 30 degree. stop zyvox (2) COPD (chronic obstructive pulmonary disease) Assessment & Plan: with exacerbation , continue antibiotics , inhalers , pending sputum culture (3) Leukocytosis Assessment & Plan: possible sepsis due to the above, on zosyn and zyvox with negative blood culture for 24 hrs , will stop zyvox (4) AMOS (acute kidney injury) Assessment & Plan: continue hydration, with close monitoring of renal function , avoid nephrotoxics (5) Respiratory failure with hypoxia Assessment & Plan: suspect due to the above, will order V/Q scan to rule out PE as an etiology , and CT chest to rule out lungs pathology , recommend pulmonary eval Subjective ROS Limited/Unobtainable: Yes Allergies: Coded Allergies: ACETAMINOPHEN (Verified Allergy, Unknown, 05/29/19) HYDROCODONE (Verified Allergy, Unknown, 05/29/19) Subjective He was still altered and unresponsive, on high flow oxygen but less requirements , on restrains, A febrile , still congested Objective Vital Signs Last 24 Hour Vital Signs Date Time Temp Pulse Resp B/P (MAP) Pulse Ox O2 Delivery O2 Flow Rate FiO2 05/31/19 13:18 81 18 99 Nasal Cannula 2.0 28 79 18 95 05/31/19 11:30 98.2 70 19 131/68 (89) 94 05/31/19 09:00 Nasal Cannula 2.0 05/31/19 07:45 104 18 98 Nasal Cannula 2.0 28 83 18 97 05/31/19 07:45 97 Nasal Cannula 2.0 28 05/31/19 04:26 86 05/31/19 04:00 97.5 84 20 157/77 (103) 97 05/31/19 01:21 62 20 99 Simple Mask 8.0 50 60 20 96 05/31/19 00:00 96 05/31/19 00:00 97.2 66 17 119/49 (72) 97 05/30/19 21:00 Simple Mask 8.0 05/30/19 21:00 64 116/46 05/30/19 20:00 97.5 64 18 116/44 (68) 96 05/30/19 20:00 74 2/13/20 19:40 97 Simple Mask 8.0 50 05/30/19 19:40 66 20 99 Simple Mask 8.0 50 64 20 97 Height (Feet): 5 Height (Inches): 11.00 Weight (Pounds): 200 General Appearance: no acute distress, cachetic HEENT: normocephalic, atraumatic, anicteric, mucous membranes moist, PERRL Respiratory/Chest: chest wall non-tender, no respiratory distress, no accessory muscle use, decreased breath sounds Cardiovascular: normal peripheral pulses, normal rate, regular rhythm, no gallop/murmur, no JVD Abdomen: normal bowel sounds, soft, non tender, no organomegaly, non distended , no mass, no scars Extremities: no cyanosis, no clubbing Skin: no rash, no lesions Neurologic/Psychiatric: alert, responsive Lymphatic: no neck adenopathy, no groin adenopathy Musculoskeletal: normal muscle bulk, no effusion Microbiology Date/Time Source Procedure Growth Status 05/29/19 12:15 Blood Blood Culture - Preliminary NO GROWTH AFTER 24 HOURS Resulted 05/29/19 12:00 Blood Blood Culture - Preliminary NO GROWTH AFTER 24 HOURS Resulted 05/29/19 17:50 Sputum Expectorated Gram Stain - Final Resulted 05/29/19 17:50 Sputum Culture - Preliminary Pseudomonas Species Resulted 05/29/19 04:24 Nasal Nares - Final Complete 05/29/19 04:24 Nasal Nares - Final Complete 05/29/19 04:00 Nasal Nares MRSA Culture - Final NO METHICILLIN RESISTANT STAPH AUREUS... Complete 05/29/19 04:00 Rectum - Final NO CARBAPENEM-RESISTANT ENTEROBACTERI... Complete 05/29/19 04:00 Rectum VRE Culture - Final Enterococcus Faecalis - Vre Complete Laboratory Tests Test 05/31/19 05:45 White Blood Count 11.9 K/UL (4.8-10.8) H Red Blood Count 3.06 M/UL (4.70-6.10) L Hemoglobin 9.5 G/DL (14.2-18.0) L Hematocrit 28.5 % (42.0-52.0) L Mean Corpuscular Volume 93 FL (80-99) Mean Corpuscular Hemoglobin 31.1 PG (27.0-31.0) H Mean Corpuscular Hemoglobin Concent 33.5 G/DL (32.0-36.0) Red Cell Distribution Width 16.3 % (11.6-14.8) H Platelet Count 270 K/UL (150-450) Mean Platelet Volume 5.7 FL (6.5-10.1) L Neutrophils (%) (Auto) % (45.0-75.0) Lymphocytes (%) (Auto) % (20.0-45.0) Monocytes (%) (Auto) % (1.0-10.0) Eosinophils (%) (Auto) % (0.0-3.0) Basophils (%) (Auto) % (0.0-2.0) Differential Total Cells Counted 100 Neutrophils % (Manual) 91 % (45-75) H Lymphocytes % (Manual) 6 % (20-45) L Monocytes % (Manual) 3 % (1-10) Eosinophils % (Manual) 0 % (0-3) Basophils % (Manual) 0 % (0-2) Band Neutrophils 0 % (0-8) Platelet Estimate Adequate Platelet Morphology Normal Anisocytosis 1+ Sodium Level 142 MMOL/L (136-145) Potassium Level 3.6 MMOL/L (3.5-5.1) Chloride Level 108 MMOL/L (98-107) H Carbon Dioxide Level 23 MMOL/L (21-32) Anion Gap 11 mmol/L (5-15) Blood Urea Nitrogen 32 mg/dL (7-18) H Creatinine 1.5 MG/DL (0.55-1.30) H Estimat Glomerular Filtration Rate 44.1 mL/min (>60) Glucose Level 258 MG/DL (74-106) H Calcium Level 8.8 MG/DL (8.5-10.1) Current Medications Medications (Trade) Dose Ordered Sig/Elizabeth Route PRN Reason Start Time Stop Time Status Last Admin Dose Admin Albuterol/ Ipratropium (Albuterol/ Ipratropium) 3 ml Q6HRT HHN 05/29/19 13:00 06/03/19 12:59 05/31/19 13:18 Aspirin (ASA) 81 mg DAILY ORAL 05/30/19 09:00 06/29/19 08:59 Atorvastatin Calcium (Lipitor) 20 mg BEDTIME ORAL 05/29/19 21:00 06/28/19 20:59 Clopidogrel Bisulfate (Plavix) 75 mg DAILY ORAL 05/30/19 09:00 06/29/19 08:59 Dextrose (Dextrose 50%) 25 ml Q30M PRN IV Hypoglycemia 05/29/19 08:45 06/28/19 08:44 Dextrose (Dextrose 50%) 50 ml Q30M PRN IV Hypoglycemia 05/29/19 08:45 06/28/19 08:44 Divalproex Sodium (Depakote Sprinkles) 125 mg Q12HR ORAL 05/31/19 11:00 06/28/19 17:59 Docusate Sodium (Colace) 100 mg THREE TIMES A DAY ORAL 05/29/19 13:00 06/28/19 12:59 Donepezil HCl (Aricept) 10 mg DAILY ORAL 05/30/19 09:00 06/29/19 08:59 Heparin Sodium (Porcine) (Heparin 5000 units/ml) 5,000 units EVERY 12 HOURS SUBQ 05/29/19 09:00 06/28/19 08:59 05/31/19 10:51 Insulin Aspart (NovoLOG) BEFORE MEALS AND HS SUBQ 05/29/19 11:30 06/28/19 11:29 05/29/19 17:21 Ipratropium Jeffrey (Atrovent) 500 mcg Q6H PRN HHN Shortness of Breath 05/29/19 10:00 06/03/19 09:59 Lidocaine (Lidoderm 5% PATCH) 1 patch DAILY TDERMAL 05/30/19 09:00 06/29/19 08:59 05/31/19 10:52 Lorazepam (Ativan 2mg/ml 1ml) 0.25 mg Q12H PRN IV Agitation 05/31/19 09:15 06/07/19 09:14 Methylprednisolone Sodium Succinate (Solu-MEDROL) 30 mg EVERY 12 HOURS IVP 05/30/19 21:00 06/28/19 20:59 05/31/19 11:18 Metoprolol Tartrate (Lopressor) 25 mg EVERY 12 HOURS ORAL 05/29/19 21:00 06/28/19 20:59 Piperacillin Sod/ Tazobactam Sod 3.375 gm/Sodium Chloride 110 ml @ 27.5 mls/hr Q8H IVPB 05/29/19 16:00 06/05/19 15:59 05/31/19 11:17 Sodium Chloride 1,000 ml @ 50 mls/hr Q20H IV 05/29/19 12:00 06/28/19 11:59 05/31/19 03:49 Tamsulosin HCl (Flomax) 0.4 mg DAILY ORAL 05/30/19 09:00 06/29/19 08:59 Melina Jones M.D. May 31, 2019 17:47
--- NOTE | 2019-05-31 18:49 | Diagnostic Imaging Report ---
EXAM: CT Head Without Intravenous Contrast CLINICAL HISTORY: FALL TECHNIQUE: Axial computed tomography images of the head/brain without intravenous contrast. CTDI is 106 mGy and DLP is 2251 mGy-cm. One or more of the following dose reduction techniques were used: automated exposure control, adjustment of the mA and/or kV according to patient size, use of iterative reconstruction technique. COMPARISON: No relevant prior studies available. FINDINGS: Limitations: Limited due to motion. Brain: No definite acute intracranial hemorrhage or cortical ischemia. Chronic small vessel ischemic changes. Ventricles: Unremarkable. Bones/joints: Unremarkable. No acute fracture. Soft tissues: Unremarkable. Sinuses: Unremarkable as visualized. Mastoid air cells: Unremarkable as visualized. IMPRESSION: 1. Limited due to motion. 2. No definite acute intracranial hemorrhage or skull fracture.
[2019-05-31] MEDS: LORazepam Inj 2mg/ml 1ml IV PRN (19:12)
--- NOTE | 2019-05-31 19:30 | NUR ---
NURSE NOTES: Received patient from Trini POLLOCK. Patient asleep in bed, but arousable. Uncooperative with care. Fights with staff and attempts to pull kc catheter. Will hold heparin for hematuria. Restraints on, bed alarm on, bed locked, in low position, call light within reach. NS infusing at 50ml/hr through left forearm 22 gauge piv.
[2019-05-31 20:00] VITALS: BP 150/70
--- NOTE | 2019-05-31 20:18 | Diagnostic Imaging Report ---
EXAM: CT Lumbar Spine Without Intravenous Contrast CLINICAL HISTORY: FALL TECHNIQUE: Axial computed tomography images of the lumbar spine without intravenous contrast. CTDI is 10 mGy and DLP is 593 mGy-cm. One or more of the following dose reduction techniques were used: automated exposure control, adjustment of the mA and/or kV according to patient size, use of iterative reconstruction technique. COMPARISON: No relevant prior studies available. FINDINGS: Vertebrae: No acute fracture or subluxation. Discs/spinal canal/neural foramina: Multilevel degenerative changes. Soft tissues: Anasarca. IMPRESSION: No acute fracture or subluxation.
--- NOTE | 2019-05-31 20:26 | Diagnostic Imaging Report ---
EXAM: CT Pelvis Without Intravenous Contrast CLINICAL HISTORY: FALL TECHNIQUE: Axial computed tomography images of the pelvis without intravenous contrast. CTDI is 10 mGy and DLP is 593 mGy-cm. One or more of the following dose reduction techniques were used: automated exposure control, adjustment of the mA and/or kV according to patient size, use of iterative reconstruction technique. COMPARISON: No relevant prior studies available. FINDINGS: Limitations: Limited due to metallic artifact. Bowel: Rectal fecal impaction. Appendix: Appendix not identified. Intraperitoneal space: Unremarkable. Bladder: Malpositioned Trejo catheter balloon in membranous/bulbar urethra. Mild densities in the bladder which may be hemorrhage, lesion, debris, or other etiology. Distended bladder. Reproductive: Unremarkable as visualized. Bones/joints: No acute fracture or dislocation. Left proximal femoral surgical fixation. Soft tissues: Anasarca. Vasculature: Atherosclerosis. Lymph nodes: Unremarkable. IMPRESSION: 1. No acute fracture or dislocation. 2. Malpositioned Trejo catheter balloon in membranous/bulbar urethra. 3. Mild densities in the bladder which may be hemorrhage, lesion, debris, or other etiology. 4. Rectal fecal impaction. <MYCVCSECTION> Communications: 05/31/19 20:41 Verify Receipt with Nurse Verified receipt with 2 Misbah Villela on 05/31 20:41 (-08:00)
--- NOTE | 2019-05-31 21:15 | NUR ---
NURSE NOTES: Spine, pelvis, and head CT were negative for fracture or dislocation.
--- NOTE | 2019-05-31 21:44 | Pulmonology Progress Note ---
Assessment/Plan Problems: (1) Basal pneumonia of both lungs (2) Dysphasia (3) Leukocytosis (4) COPD (chronic obstructive pulmonary disease) (5) AMOS (acute kidney injury) (6) Respiratory failure with hypoxia (7) Elevated WBC count (8) Failure to thrive Assessment/Plan ASSESSMENT: The patient is an 88-year-old male with a history of dementia, chronic obstructive pulmonary disease, prior sternotomy, congestive heart failure, and sick sinus syndrome, status post pacemaker, presenting with a respiratory illness, likely healthcare-associated pneumonia with acute kidney injury and dehydration. PROBLEM LIST: 1. Healthcare-associated pneumonia. 2. Acute hypoxemic respiratory failure secondary to above. 3. Acute kidney injury. 4. Dehydration. 5. Non ST-elevation myocardial infarction, likely demand ischemia. 6. Chronic obstructive pulmonary disease with acute exacerbation. 7. Hypertension. 8. Hypertensive heart disease. 9. Hyperlipidemia. 10. Diabetes type 2. 11. CAD, status post CABG and PCI. 12. History of Mobitz type II heart block and sick sinus syndrome,status post pacemaker. 13. Peripheral vascular disease. 14. History of angioedema in the past. 15. Dementia. TREATMENT PLAN: 1. Optimize pulmonary hygiene/mobilize as tolerated. 2. Titrate down FiO2 to keep saturations greater than 90%. 3. Prwqg-fie-ppsxt and p.r.n. bronchodilators. 4. Decreased Solu-Medrol to 20 mg IV b.i.d. and taper. 5. Antibiotics (Zosyn/Zyvox) per ID. 6. Monitor volumes and renal function, mIVF 7. Aspiration precautions, n.p.o., possible Dobhoff, NGT when able 8. DVT prophylaxis, heparin subcutaneous. 9. The patient is Full Code, continue to discuss goals of care. Subjective Allergies: Coded Allergies: ACETAMINOPHEN (Verified Allergy, Unknown, 05/29/19) HYDROCODONE (Verified Allergy, Unknown, 05/29/19) Subjective AFVSS on 6L agitated No cough no distress no wheezing no FC Objective Last 24 Hour Vital Signs Date Time Temp Pulse Resp B/P (MAP) Pulse Ox O2 Delivery O2 Flow Rate FiO2 05/31/19 20:00 97.9 60 18 150/70 (96) 96 05/31/19 19:31 95 Nasal Cannula 2.0 28 05/31/19 19:31 83 18 100 Nasal Cannula 2.0 28 65 18 95 05/31/19 16:00 72 05/31/19 13:18 81 18 99 Nasal Cannula 2.0 28 79 18 95 05/31/19 12:00 93 05/31/19 12:00 98.1 72 18 158/70 (99) 97 05/31/19 11:30 98.2 70 19 131/68 (89) 94 05/31/19 09:00 Nasal Cannula 2.0 05/31/19 08:00 60 05/31/19 07:45 104 18 98 Nasal Cannula 2.0 28 83 18 97 05/31/19 07:45 97 Nasal Cannula 2.0 28 05/31/19 04:26 86 05/31/19 04:00 97.5 84 20 157/77 (103) 97 05/31/19 01:21 62 20 99 Simple Mask 8.0 50 60 20 96 05/31/19 00:00 96 05/31/19 00:00 97.2 66 17 119/49 (72) 97 Intake and Output 05/30/19 05/31/19 19:00 07:00 Output Total 700 ml 1100 ml Balance -700 ml -1100 ml Output Urine Total 700 ml 1100 ml General Appearance: no acute distress, cachetic HEENT: normocephalic, atraumatic, anicteric, mucous membranes moist Respiratory/Chest: rhonchi Cardiovascular: normal peripheral pulses, normal rate, regular rhythm Abdomen: normal bowel sounds, soft, non tender, no organomegaly, non distended , no mass Extremities: no cyanosis, no clubbing, no edema Microbiology Date/Time Source Procedure Growth Status 05/29/19 12:15 Blood Blood Culture - Preliminary NO GROWTH AFTER 24 HOURS Resulted 05/29/19 12:00 Blood Blood Culture - Preliminary NO GROWTH AFTER 24 HOURS Resulted 05/29/19 17:50 Sputum Expectorated Gram Stain - Final Resulted 05/29/19 17:50 Sputum Culture - Preliminary Pseudomonas Species Resulted 05/29/19 04:24 Nasal Nares - Final Complete 05/29/19 04:24 Nasal Nares - Final Complete 05/29/19 04:00 Nasal Nares MRSA Culture - Final NO METHICILLIN RESISTANT STAPH AUREUS... Complete 05/29/19 04:00 Rectum - Final NO CARBAPENEM-RESISTANT ENTEROBACTERI... Complete 05/29/19 04:00 Rectum VRE Culture - Final Enterococcus Faecalis - Vre Complete Laboratory Tests 05/31/19 05:45: White Blood Count 11.9H, Red Blood Count 3.06L, Hemoglobin 9.5L, Hematocrit 28.5L, Mean Corpuscular Volume 93, Mean Corpuscular Hemoglobin 31.1H, Mean Corpuscular Hemoglobin Concent 33.5, Red Cell Distribution Width 16.3H, Platelet Count 270, Mean Platelet Volume 5.7L, Neutrophils (%) (Auto) , Lymphocytes (%) (Auto) , Monocytes (%) (Auto) , Eosinophils (%) (Auto) , Basophils (%) (Auto) , Differential Total Cells Counted 100, Neutrophils % ( Manual) 91H, Lymphocytes % (Manual) 6L, Monocytes % (Manual) 3, Eosinophils % ( Manual) 0, Basophils % (Manual) 0, Band Neutrophils 0, Platelet Estimate Adequate, Platelet Morphology Normal, Anisocytosis 1+, Sodium Level 142, Potassium Level 3.6, Chloride Level 108H, Carbon Dioxide Level 23, Anion Gap 11 , Blood Urea Nitrogen 32H, Creatinine 1.5H, Estimat Glomerular Filtration Rate 44.1, Glucose Level 258H, Calcium Level 8.8 Current Medications Medications (Trade) Dose Ordered Sig/Elizabeth Route PRN Reason Start Time Stop Time Status Last Admin Dose Admin Albuterol/ Ipratropium (Albuterol/ Ipratropium) 3 ml Q6HRT HHN 05/29/19 13:00 06/03/19 12:59 05/31/19 19:31 Aspirin (ASA) 81 mg DAILY ORAL 05/30/19 09:00 06/29/19 08:59 Atorvastatin Calcium (Lipitor) 20 mg BEDTIME ORAL 05/29/19 21:00 06/28/19 20:59 Clopidogrel Bisulfate (Plavix) 75 mg DAILY ORAL 05/30/19 09:00 06/29/19 08:59 Dextrose (Dextrose 50%) 25 ml Q30M PRN IV Hypoglycemia 05/29/19 08:45 06/28/19 08:44 Dextrose (Dextrose 50%) 50 ml Q30M PRN IV Hypoglycemia 05/29/19 08:45 06/28/19 08:44 Divalproex Sodium (Depakote Sprinkles) 125 mg Q12HR ORAL 05/31/19 11:00 06/28/19 17:59 Docusate Sodium (Colace) 100 mg THREE TIMES A DAY ORAL 05/29/19 13:00 06/28/19 12:59 Donepezil HCl (Aricept) 10 mg DAILY ORAL 05/30/19 09:00 06/29/19 08:59 Heparin Sodium (Porcine) (Heparin 5000 units/ml) 5,000 units EVERY 12 HOURS SUBQ 05/29/19 09:00 06/28/19 08:59 05/31/19 10:51 Insulin Aspart (NovoLOG) BEFORE MEALS AND HS SUBQ 05/29/19 11:30 06/28/19 11:29 05/29/19 17:21 Ipratropium [place] (Atrovent) 500 mcg Q6H PRN HHN Shortness of Breath 05/29/19 10:00 06/03/19 09:59 Lidocaine (Lidoderm 5% PATCH) 1 patch DAILY TDERMAL 05/30/19 09:00 06/29/19 08:59 05/31/19 10:52 Lorazepam (Ativan 2mg/ml 1ml) 0.25 mg Q12H PRN IV Agitation 05/31/19 09:15 06/07/19 09:14 05/31/19 19:12 Methylprednisolone Sodium Succinate (Solu-MEDROL) 30 mg EVERY 12 HOURS IVP 05/30/19 21:00 06/28/19 20:59 05/31/19 11:18 Metoprolol Tartrate (Lopressor) 25 mg EVERY 12 HOURS ORAL 05/29/19 21:00 06/28/19 20:59 Piperacillin Sod/ Tazobactam Sod 3.375 gm/Sodium Chloride 110 ml @ 27.5 mls/hr Q8H IVPB 05/29/19 16:00 06/05/19 15:59 05/31/19 11:17 Sodium Chloride 1,000 ml @ 50 mls/hr Q20H IV 05/29/19 12:00 06/28/19 11:59 05/31/19 03:49 Tamsulosin HCl (Flomax) 0.4 mg DAILY ORAL 05/30/19 09:00 06/29/19 08:59 Kenny Rich MD May 31, 2019 21:44
--- NOTE | 2019-05-31 21:44 | NUR ---
HAND-OFF: Report given to Prem/MARIS, endorsed family will like to be called for all results post fall.
[2019-05-31] MEDS: Atorvastatin 20mg tab ORAL SCH (21:57)
[2019-06-01] VITALS: BP 154/63
[2019-06-01] MEDS: Albuterol/Ipratropium 3ml neb HHN SCH ×4 (01:20→19:09)
[2019-06-01 04:00] VITALS: BP 147/62
[2019-06-01] MEDS: NovoLOG Insulin Flexpen SUBQ SCH ×4 (06:05→21:43)
[2019-06-01 07:55] LABS: HEMATOCRIT 28.6 % (42.0-52.0); HEMOGLOBIN 9.6 G/DL (14.2-18.0); MEAN CORPUSCULAR VOLUME 93 FL (80-99); PLATELET COUNT 248 K/UL (150-450); RED BLOOD COUNT 3.07 M/UL (4.70-6.10); RED CELL DISTRIBUTION WIDTH 16.1 % (11.6-14.8); WHITE BLOOD COUNT 10.2 K/UL (4.8-10.8)
[2019-06-01 08:00] VITALS: BP 111/64
--- NOTE | 2019-06-01 08:00 | NUR ---
NURSE NOTES: Report received from Manohar POLLOCK. Patient is awake and confused; needs frequent reminders. Respiratory even and unlabored. No s/s of acute distress at this time. IVF is running at a prescribed rate. IV site is asymptomatic, patent, and intact. Trejo catheter is patent and intact. Urine observed to be tea colored, with minimal hematuria. Bed is in lowest position with side rails up x2 and brakes are engaged. Bed alarm is on. Will continue to monitor.
[2019-06-01 08:17] LABS: ANION GAP 8 mmol/L (5-15); BLOOD UREA NITROGEN 28 mg/dL (7-18); CALCIUM 8.8 MG/DL (8.5-10.1); CARBON DIOXIDE 27 MMOL/L (21-32); CHLORIDE 111 MMOL/L (98-107); CREATININE 1.3 MG/DL (0.55-1.30); POTASSIUM 3.7 MMOL/L (3.5-5.1); SODIUM 146 MMOL/L (136-145)
[2019-06-01] MEDS: Piperacillin/Tazobactam 3.375 GM in NS 110 ML IVPB SCH (08:37)
--- NOTE | 2019-06-01 08:45 | NUR ---
NURSE NOTES: Patient is refusing to eat at this time. Son is at bedside; encouraged son to attempt feeding patient, however, patient still refused. Will continue to reassess.
--- NOTE | 2019-06-01 09:00 | NUR ---
NURSE NOTES: Notified PMD regarding elevated sodium level at 146 this AM. Per MD, continue IVF of NS at 50cc/hr until urine color becomes clear. Will carry out order.
--- NOTE | 2019-06-01 09:14 | Cardiac Electrophysiology PN ---
Assessment/Plan Assessment/Plan 1. Non-ST elevation myocardial infarction type 2 in view of renal failure. Due to demand ischemia in view of patient's sepsis, white count of 20,000. The patient also has renal failure with creatinine of 2.8. Echo showed Nl EF 55%. LE duplex no DVT On aspirin, Lopressor 25 bid, and Lipitor 40. Hx of CABG. No need for further troponin 2. Status post [facility] D[facility] pacemaker. Interrogated and showed Nl Fx. Battery more than a year left 3. Sepsis, COPD, pneumonia and hypoxia. On Zosyn per ID DDimer was positive but VQ low probability 05/31/19 4. Advanced dementia. 5. Dysphagia, passed Swallow eval but refusing eating DW RN Subjective Subjective Family took off the restraints and he fell. Back on restraints. . Passed swallow eval. A pacing on tele. Pacer interrogation showed Nl Fx DDimer was high and had VQ scan that was low probability 05/31/19 Objective Last 24 Hour Vital Signs Date Time Temp Pulse Resp B/P (MAP) Pulse Ox O2 Delivery O2 Flow Rate FiO2 06/01/19 07:09 94 Nasal Cannula 2.0 28 06/01/19 07:08 79 22 100 Nasal Cannula 2.0 28 76 18 96 06/01/19 04:00 61 06/01/19 04:00 97.7 62 20 147/62 (90) 95 06/01/19 01:20 78 17 100 Nasal Cannula 2.0 28 60 18 96 06/01/19 00:00 60 06/01/19 00:00 97.8 60 19 154/63 (93) 96 05/31/19 21:57 60 150/70 05/31/19 21:00 Nasal Cannula 2.0 05/31/19 20:00 78 05/31/19 20:00 97.9 60 18 150/70 (96) 96 05/31/19 19:31 95 Nasal Cannula 2.0 28 05/31/19 19:31 83 18 100 Nasal Cannula 2.0 28 65 18 95 05/31/19 16:00 72 05/31/19 13:18 81 18 99 Nasal Cannula 2.0 28 79 18 95 05/31/19 12:00 93 05/31/19 12:00 98.1 72 18 158/70 (99) 97 05/31/19 11:30 98.2 70 19 131/68 (89) 94 Intake and Output 05/31/19 06/01/19 19:00 07:00 Output Total 680 ml 600 ml Balance -680 ml -600 ml Output Urine Total 680 ml 600 ml # Bowel Movements 1 Laboratory Tests Test 06/01/19 06:15 White Blood Count 10.2 K/UL (4.8-10.8) Red Blood Count 3.07 M/UL (4.70-6.10) L Hemoglobin 9.6 G/DL (14.2-18.0) L Hematocrit 28.6 % (42.0-52.0) L Mean Corpuscular Volume 93 FL (80-99) Mean Corpuscular Hemoglobin 31.2 PG (27.0-31.0) H Mean Corpuscular Hemoglobin Concent 33.5 G/DL (32.0-36.0) Red Cell Distribution Width 16.1 % (11.6-14.8) H Platelet Count 248 K/UL (150-450) Mean Platelet Volume 5.3 FL (6.5-10.1) L Neutrophils (%) (Auto) % (45.0-75.0) Lymphocytes (%) (Auto) % (20.0-45.0) Monocytes (%) (Auto) % (1.0-10.0) Eosinophils (%) (Auto) % (0.0-3.0) Basophils (%) (Auto) % (0.0-2.0) Neutrophils % (Manual) Pending Lymphocytes % (Manual) Pending Platelet Estimate Pending Platelet Morphology Pending Sodium Level 146 MMOL/L (136-145) H Potassium Level 3.7 MMOL/L (3.5-5.1) Chloride Level 111 MMOL/L (98-107) H Carbon Dioxide Level 27 MMOL/L (21-32) Anion Gap 8 mmol/L (5-15) Blood Urea Nitrogen 28 mg/dL (7-18) H Creatinine 1.3 MG/DL (0.55-1.30) Estimat Glomerular Filtration Rate 52.0 mL/min (>60) Glucose Level 165 MG/DL (74-106) H Calcium Level 8.8 MG/DL (8.5-10.1) Microbiology Date/Time Source Procedure Growth Status 05/29/19 12:15 Blood Blood Culture - Preliminary NO GROWTH AFTER 48 HOURS Resulted 05/29/19 12:00 Blood Blood Culture - Preliminary NO GROWTH AFTER 48 HOURS Resulted 05/29/19 17:50 Sputum Expectorated Gram Stain - Final Complete 05/29/19 17:50 Sputum Culture - Final Pseudomonas Aeruginosa Complete Objective HEAD AND NECK: No JVD. LUNGS: Coarse rhonchi. CARDIOVASCULAR: Regular S1 and S2 with no gallop or murmur. ABDOMEN: Soft. EXTREMITIES: No pitting edema. Sunny Cunningham MD Jun 01, 2019 09:14
[2019-06-01] MEDS: Aspirin Baby 81mg ORAL SCH (09:38)
[2019-06-01] MEDS: Docusate 100mg cap ORAL SCH ×3 (09:38→18:22)
[2019-06-01] MEDS: Donepezil 10mg tab ORAL SCH (09:38)
[2019-06-01] MEDS: Depakote 125mg Sprinkles ORAL SCH ×2 (09:38→21:44)
[2019-06-01] MEDS: Tamsulosin 0.4mg cap ORAL SCH (09:38)
[2019-06-01] MEDS: Heparin 5000 units/ml inj SUBQ SCH ×2 (09:40→21:43)
--- NOTE | 2019-06-01 09:54 | General Progress Note ---
Assessment/Plan Status: progressing, unchanged Subjective Allergies: Coded Allergies: ACETAMINOPHEN (Verified Allergy, Unknown, 05/29/19) HYDROCODONE (Verified Allergy, Unknown, 05/29/19) Objective Last 24 Hour Vital Signs Date Time Temp Pulse Resp B/P (MAP) Pulse Ox O2 Delivery O2 Flow Rate FiO2 06/01/19 07:09 94 Nasal Cannula 2.0 28 06/01/19 07:08 79 22 100 Nasal Cannula 2.0 28 76 18 96 06/01/19 04:00 61 06/01/19 04:00 97.7 62 20 147/62 (90) 95 06/01/19 01:20 78 17 100 Nasal Cannula 2.0 28 60 18 96 06/01/19 00:00 60 06/01/19 00:00 97.8 60 19 154/63 (93) 96 05/31/19 21:57 60 150/70 05/31/19 21:00 Nasal Cannula 2.0 05/31/19 20:00 78 05/31/19 20:00 97.9 60 18 150/70 (96) 96 05/31/19 19:31 95 Nasal Cannula 2.0 28 05/31/19 19:31 83 18 100 Nasal Cannula 2.0 28 65 18 95 05/31/19 16:00 72 05/31/19 13:18 81 18 99 Nasal Cannula 2.0 28 79 18 95 05/31/19 12:00 93 05/31/19 12:00 98.1 72 18 158/70 (99) 97 05/31/19 11:30 98.2 70 19 131/68 (89) 94 Intake and Output 05/31/19 06/01/19 19:00 07:00 Output Total 680 ml 600 ml Balance -680 ml -600 ml Output Urine Total 680 ml 600 ml # Bowel Movements 1 Laboratory Tests 06/01/19 06:15: White Blood Count 10.2, Red Blood Count 3.07L, Hemoglobin 9.6L, Hematocrit 28.6L , Mean Corpuscular Volume 93, Mean Corpuscular Hemoglobin 31.2H, Mean Corpuscular Hemoglobin Concent 33.5, Red Cell Distribution Width 16.1H, Platelet Count 248, Mean Platelet Volume 5.3L, Neutrophils (%) (Auto) , Lymphocytes (%) (Auto) , Monocytes (%) (Auto) , Eosinophils (%) (Auto) , Basophils (%) (Auto) , Neutrophils % (Manual) [Pending], Lymphocytes % (Manual) [Pending], Platelet Estimate [Pending], Platelet Morphology [Pending], Sodium Level 146H, Potassium Level 3.7, Chloride Level 111H, Carbon Dioxide Level 27, Anion Gap 8, Blood Urea Nitrogen 28H, Creatinine 1.3, Estimat Glomerular Filtration Rate 52.0, Glucose Level 165H, Calcium Level 8.8 Height (Feet): 5 Height (Inches): 11.00 Weight (Pounds): 200 Ronaldo Muniz MD Jun 01, 2019 09:54
--- NOTE | 2019-06-01 10:16 | General Progress Note ---
Assessment/Plan Status: progressing, unchanged Assessment/Plan: 1. Pneumonia - cont IV Abx 2. Leukocytosis improving, possible sepsis - improved. cont IV abx. 3. Elevated Troponin 2nd to NSTEMI due to demand Ischemia most likely due to DALILA and sepsis - cardiology following. 4. COPD exacerbation - on solumedrol and pulmonary following. 5. Hypotension 2nd to sepsis and pneumonia - improved. 6. Dementia - on oral feeding and oral meds now. 7. Acute Hypoxemic respiratory Failure 2nd to pneumonia and sepsis 8. AMOS - improving with hydration. 9. Hypertensive heart disease - on metoprolol 25 mg po bid. 10. HLD - cont oral meds. 11. DM II - start SSI. 12. CAD s/p CABG and stent placement. 13. H/O PVD 14. H/O angioedema in the past. Subjective Date patient seen: Jun 01, 2019 Time patient seen: 10:00 Constitutional: Reports: no symptoms HEENT: Reports: no symptoms Cardiovascular: Reports: no symptoms Respiratory: Reports: no symptoms Gastrointestinal/Abdominal: Reports: no symptoms Genitourinary: Reports: hematuria Neurologic/Psychiatric: Reports: weakness Endocrine: Reports: no symptoms Allergies: Coded Allergies: ACETAMINOPHEN (Verified Allergy, Unknown, 05/29/19) HYDROCODONE (Verified Allergy, Unknown, 05/29/19) Subjective This morning he is awake and he has hematuria. His kc was in urethra per CT scan reading. Afebrile and His WBC improving. Objective Last 24 Hour Vital Signs Date Time Temp Pulse Resp B/P (MAP) Pulse Ox O2 Delivery O2 Flow Rate FiO2 06/01/19 09:37 95 111/64 06/01/19 07:09 94 Nasal Cannula 2.0 28 06/01/19 07:08 79 22 100 Nasal Cannula 2.0 28 76 18 96 06/01/19 04:00 61 06/01/19 04:00 97.7 62 20 147/62 (90) 95 06/01/19 01:20 78 17 100 Nasal Cannula 2.0 28 60 18 96 06/01/19 00:00 60 06/01/19 00:00 97.8 60 19 154/63 (93) 96 05/31/19 21:57 60 150/70 05/31/19 21:00 Nasal Cannula 2.0 05/31/19 20:00 78 05/31/19 20:00 97.9 60 18 150/70 (96) 96 05/31/19 19:31 95 Nasal Cannula 2.0 28 05/31/19 19:31 83 18 100 Nasal Cannula 2.0 28 65 18 95 05/31/19 16:00 72 05/31/19 13:18 81 18 99 Nasal Cannula 2.0 28 79 18 95 05/31/19 12:00 93 05/31/19 12:00 98.1 72 18 158/70 (99) 97 05/31/19 11:30 98.2 70 19 131/68 (89) 94 Intake and Output 05/31/19 06/01/19 19:00 07:00 Output Total 680 ml 600 ml Balance -680 ml -600 ml Output Urine Total 680 ml 600 ml # Bowel Movements 1 Laboratory Tests 06/01/19 06:15: White Blood Count 10.2, Red Blood Count 3.07L, Hemoglobin 9.6L, Hematocrit 28.6L , Mean Corpuscular Volume 93, Mean Corpuscular Hemoglobin 31.2H, Mean Corpuscular Hemoglobin Concent 33.5, Red Cell Distribution Width 16.1H, Platelet Count 248, Mean Platelet Volume 5.3L, Neutrophils (%) (Auto) , Lymphocytes (%) (Auto) , Monocytes (%) (Auto) , Eosinophils (%) (Auto) , Basophils (%) (Auto) , Neutrophils % (Manual) [Pending], Lymphocytes % (Manual) [Pending], Platelet Estimate [Pending], Platelet Morphology [Pending], Sodium Level 146H, Potassium Level 3.7, Chloride Level 111H, Carbon Dioxide Level 27, Anion Gap 8, Blood Urea Nitrogen 28H, Creatinine 1.3, Estimat Glomerular Filtration Rate 52.0, Glucose Level 165H, Calcium Level 8.8 Height (Feet): 5 Height (Inches): 11.00 Weight (Pounds): 200 General Appearance: no apparent distress, alert Neck: non-tender, normal alignment Cardiovascular: normal peripheral pulses, normal rate Respiratory/Chest: lungs clear, normal breath sounds Abdomen: normal bowel sounds, non tender, soft Extremities: normal range of motion, non-tender Edema: no edema noted Arm (L), no edema noted Arm (R), no edema noted Leg (L), no edema noted Leg (R), no edema noted Pedal (L), no edema noted Pedal (R), no edema noted Generalized Neurologic: alert, responsive Skin: warm/dry Ronaldo Muniz MD Jun 01, 2019 10:16
--- NOTE | 2019-06-01 11:37 | NUR ---
NURSE NOTES: Held insulin dose at this time. Patient has poor appetite and refusing to eat. Will reassess at lunchtime.
[2019-06-01] MEDS: Cefepime 2gm/D5W 110ml IV SCH ×4 (11:41→21:44)
[2019-06-01] MEDS: Solu-MEDROL 40mg Inj IVP SCH ×2 (11:41→23:09)
[2019-06-01 12:00] VITALS: BP 142/61
--- NOTE | 2019-06-01 13:52 | Infectious Diseases Prog Note ---
Assessment/Plan Problems: (1) Basal pneumonia of both lungs Assessment & Plan: confirmed on CT chest , with cough and congestion , suspect aspiration , due to pseudomonas aeruginosa resistant to zosyn , will switch to cefepime treatment for 2-3 weeks . aspiration precaution, keep HOB > 30 degree. (2) COPD (chronic obstructive pulmonary disease) Assessment & Plan: with exacerbation , continue antibiotics , inhalers , titrate oxygen as needed (3) Leukocytosis Assessment & Plan: possible sepsis due to the above, on zosyn and zyvox with negative blood culture for 24 hrs , will stop zyvox (4) AMOS (acute kidney injury) Assessment & Plan: continue hydration, with close monitoring of renal function , avoid nephrotoxics (5) Respiratory failure with hypoxia Assessment & Plan: suspect due to the above, V/Q scan ruled out PE as an etiology , and CT chest confirmed pneumonia ,pulmonary is following Subjective ROS Limited/Unobtainable: Yes Allergies: Coded Allergies: ACETAMINOPHEN (Verified Allergy, Unknown, 05/29/19) HYDROCODONE (Verified Allergy, Unknown, 05/29/19) Subjective He was more awake and alert, but still confused and agitated on restrains . on high flow oxygen with less requirements , A febrile , still congested Objective Vital Signs Last 24 Hour Vital Signs Date Time Temp Pulse Resp B/P (MAP) Pulse Ox O2 Delivery O2 Flow Rate FiO2 06/01/19 13:23 80 24 100 Nasal Cannula 2.0 28 74 20 95 06/01/19 12:00 97.2 60 20 142/61 (88) 97 06/01/19 11:46 84 06/01/19 09:37 95 111/64 06/01/19 09:00 Nasal Cannula 2.0 06/01/19 08:00 97.9 95 20 111/64 (80) 95 06/01/19 07:52 61 06/01/19 07:09 94 Nasal Cannula 2.0 28 06/01/19 07:08 79 22 100 Nasal Cannula 2.0 28 76 18 96 06/01/19 04:00 61 06/01/19 04:00 97.7 62 20 147/62 (90) 95 06/01/19 01:20 78 17 100 Nasal Cannula 2.0 28 60 18 96 06/01/19 00:00 60 06/01/19 00:00 97.8 60 19 154/63 (93) 96 2/14/20 21:57 60 150/70 05/31/19 21:00 Nasal Cannula 2.0 05/31/19 20:00 78 05/31/19 20:00 97.9 60 18 150/70 (96) 96 05/31/19 19:31 95 Nasal Cannula 2.0 28 05/31/19 19:31 83 18 100 Nasal Cannula 2.0 28 65 18 95 05/31/19 16:00 72 Height (Feet): 5 Height (Inches): 11.00 Weight (Pounds): 200 General Appearance: no acute distress, cachetic HEENT: normocephalic, atraumatic, anicteric, mucous membranes moist, PERRL Respiratory/Chest: chest wall non-tender, no respiratory distress, no accessory muscle use, decreased breath sounds Cardiovascular: normal peripheral pulses, normal rate, regular rhythm, no gallop/murmur, no JVD Abdomen: normal bowel sounds, soft, non tender, no organomegaly, non distended , no mass, no scars Genitourinary: normal external genitalia Extremities: no cyanosis, no clubbing Skin: no rash, no lesions, no ulcers Neurologic/Psychiatric: alert, responsive Lymphatic: no neck adenopathy, no groin adenopathy Musculoskeletal: normal muscle bulk, no effusion Microbiology Date/Time Source Procedure Growth Status 05/29/19 17:50 Sputum Expectorated Gram Stain - Final Complete 05/29/19 17:50 Sputum Culture - Final Pseudomonas Aeruginosa Complete Laboratory Tests Test 06/01/19 06:15 White Blood Count 10.2 K/UL (4.8-10.8) Red Blood Count 3.07 M/UL (4.70-6.10) L Hemoglobin 9.6 G/DL (14.2-18.0) L Hematocrit 28.6 % (42.0-52.0) L Mean Corpuscular Volume 93 FL (80-99) Mean Corpuscular Hemoglobin 31.2 PG (27.0-31.0) H Mean Corpuscular Hemoglobin Concent 33.5 G/DL (32.0-36.0) Red Cell Distribution Width 16.1 % (11.6-14.8) H Platelet Count 248 K/UL (150-450) Mean Platelet Volume 5.3 FL (6.5-10.1) L Neutrophils (%) (Auto) % (45.0-75.0) Lymphocytes (%) (Auto) % (20.0-45.0) Monocytes (%) (Auto) % (1.0-10.0) Eosinophils (%) (Auto) % (0.0-3.0) Basophils (%) (Auto) % (0.0-2.0) Differential Total Cells Counted 100 Neutrophils % (Manual) 94 % (45-75) H Lymphocytes % (Manual) 3 % (20-45) L Monocytes % (Manual) 3 % (1-10) Eosinophils % (Manual) 0 % (0-3) Basophils % (Manual) 0 % (0-2) Band Neutrophils 0 % (0-8) Platelet Estimate Adequate Platelet Morphology Normal Hypochromasia 2+ Anisocytosis 1+ Spherocytes 1+ Sodium Level 146 MMOL/L (136-145) H Potassium Level 3.7 MMOL/L (3.5-5.1) Chloride Level 111 MMOL/L (98-107) H Carbon Dioxide Level 27 MMOL/L (21-32) Anion Gap 8 mmol/L (5-15) Blood Urea Nitrogen 28 mg/dL (7-18) H Creatinine 1.3 MG/DL (0.55-1.30) Estimat Glomerular Filtration Rate 52.0 mL/min (>60) Glucose Level 165 MG/DL (74-106) H Calcium Level 8.8 MG/DL (8.5-10.1) Current Medications Medications (Trade) Dose Ordered Sig/Elizabeth Route PRN Reason Start Time Stop Time Status Last Admin Dose Admin Albuterol/ Ipratropium (Albuterol/ Ipratropium) 3 ml Q6HRT HHN 05/29/19 13:00 06/03/19 12:59 06/01/19 13:22 Aspirin (ASA) 81 mg DAILY ORAL 05/30/19 09:00 06/29/19 08:59 06/01/19 09:38 Atorvastatin Calcium (Lipitor) 20 mg BEDTIME ORAL 05/29/19 21:00 06/28/19 20:59 05/31/19 21:57 Cefepime HCl 2 gm/ Dextrose 110 ml @ 220 mls/hr Q8HR IV 06/01/19 11:30 06/08/19 11:29 06/01/19 11:41 Clopidogrel Bisulfate (Plavix) 75 mg DAILY ORAL 05/30/19 09:00 06/29/19 08:59 06/01/19 09:37 Dextrose (Dextrose 50%) 25 ml Q30M PRN IV Hypoglycemia 05/29/19 08:45 06/28/19 08:44 Dextrose (Dextrose 50%) 50 ml Q30M PRN IV Hypoglycemia 05/29/19 08:45 06/28/19 08:44 Divalproex Sodium (Depakote Sprinkles) 125 mg Q12HR ORAL 05/31/19 11:00 06/28/19 17:59 06/01/19 09:38 Docusate Sodium (Colace) 100 mg THREE TIMES A DAY ORAL 05/29/19 13:00 06/28/19 12:59 06/01/19 09:38 Donepezil HCl (Aricept) 10 mg DAILY ORAL 05/30/19 09:00 06/29/19 08:59 06/01/19 09:38 Heparin Sodium (Porcine) (Heparin 5000 units/ml) 5,000 units EVERY 12 HOURS SUBQ 05/29/19 09:00 06/28/19 08:59 06/01/19 09:40 Insulin Aspart (NovoLOG) BEFORE MEALS AND HS SUBQ 05/29/19 11:30 06/28/19 11:29 06/01/19 06:05 Ipratropium [place] (Atrovent) 500 mcg Q6H PRN HHN Shortness of Breath 05/29/19 10:00 06/03/19 09:59 Lidocaine (Lidoderm 5% PATCH) 1 patch DAILY TDERMAL 05/30/19 09:00 06/29/19 08:59 06/01/19 09:39 Lorazepam (Ativan 2mg/ml 1ml) 0.25 mg Q12H PRN IV Agitation 05/31/19 09:15 06/07/19 09:14 05/31/19 19:12 Methylprednisolone Sodium Succinate (Solu-MEDROL) 20 mg Q12H IVP 05/31/19 23:00 06/30/19 22:59 06/01/19 11:41 Metoprolol Tartrate (Lopressor) 25 mg EVERY 12 HOURS ORAL 05/29/19 21:00 06/28/19 20:59 06/01/19 09:37 Sodium Chloride 1,000 ml @ 50 mls/hr Q20H IV 05/29/19 12:00 06/28/19 11:59 05/31/19 03:49 Tamsulosin HCl (Flomax) 0.4 mg DAILY ORAL 05/30/19 09:00 06/29/19 08:59 06/01/19 09:38 Melian Jones M.D. Jun 01, 2019 13:52
--- NOTE | 2019-06-01 14:29 | General Progress Note ---
Assessment/Plan Status: progressing, unchanged Assessment/Plan: Assessment - AMS - anorexia - Anemia - Resolved azotemia - FTT Recommendations - po diet as tolerated - follow labs and exam - psych f/u - May need TF Subjective Allergies: Coded Allergies: ACETAMINOPHEN (Verified Allergy, Unknown, 05/29/19) HYDROCODONE (Verified Allergy, Unknown, 05/29/19) Subjective Confused pulling on restraints poor po per RN Objective Last 24 Hour Vital Signs Date Time Temp Pulse Resp B/P (MAP) Pulse Ox O2 Delivery O2 Flow Rate FiO2 06/01/19 13:23 80 24 100 Nasal Cannula 2.0 28 74 20 95 06/01/19 12:00 97.2 60 20 142/61 (88) 97 06/01/19 11:46 84 06/01/19 09:37 95 111/64 06/01/19 09:00 Nasal Cannula 2.0 06/01/19 08:00 97.9 95 20 111/64 (80) 95 06/01/19 07:52 61 06/01/19 07:09 94 Nasal Cannula 2.0 28 06/01/19 07:08 79 22 100 Nasal Cannula 2.0 28 76 18 96 06/01/19 04:00 61 06/01/19 04:00 97.7 62 20 147/62 (90) 95 06/01/19 01:20 78 17 100 Nasal Cannula 2.0 28 60 18 96 06/01/19 00:00 60 06/01/19 00:00 97.8 60 19 154/63 (93) 96 05/31/19 21:57 60 150/70 05/31/19 21:00 Nasal Cannula 2.0 05/31/19 20:00 78 05/31/19 20:00 97.9 60 18 150/70 (96) 96 05/31/19 19:31 95 Nasal Cannula 2.0 28 05/31/19 19:31 83 18 100 Nasal Cannula 2.0 28 65 18 95 05/31/19 16:00 72 Intake and Output 05/31/19 06/01/19 19:00 07:00 Output Total 680 ml 600 ml Balance -680 ml -600 ml Output Urine Total 680 ml 600 ml # Bowel Movements 1 Laboratory Tests 06/01/19 06:15: White Blood Count 10.2, Red Blood Count 3.07L, Hemoglobin 9.6L, Hematocrit 28.6L , Mean Corpuscular Volume 93, Mean Corpuscular Hemoglobin 31.2H, Mean Corpuscular Hemoglobin Concent 33.5, Red Cell Distribution Width 16.1H, Platelet Count 248, Mean Platelet Volume 5.3L, Neutrophils (%) (Auto) , Lymphocytes (%) (Auto) , Monocytes (%) (Auto) , Eosinophils (%) (Auto) , Basophils (%) (Auto) , Differential Total Cells Counted 100, Neutrophils % ( Manual) 94H, Lymphocytes % (Manual) 3L, Monocytes % (Manual) 3, Eosinophils % ( Manual) 0, Basophils % (Manual) 0, Band Neutrophils 0, Platelet Estimate Adequate, Platelet Morphology Normal, Hypochromasia 2+, Anisocytosis 1+, Spherocytes 1+, Sodium Level 146H, Potassium Level 3.7, Chloride Level 111H, Carbon Dioxide Level 27, Anion Gap 8, Blood Urea Nitrogen 28H, Creatinine 1.3, Estimat Glomerular Filtration Rate 52.0, Glucose Level 165H, Calcium Level 8.8 Height (Feet): 5 Height (Inches): 11.00 Weight (Pounds): 200 Objective confused incoherent restrained CTA RR abd soft no edema Veronique Lainez MD Jun 01, 2019 14:29
--- NOTE | 2019-06-01 14:32 | NUR ---
NURSE NOTES: Dr. Lainez at bedside. Notified MD regarding patient refusal to eat. Will continue to monitor.
--- NOTE | 2019-06-01 15:12 | NUR ---
NURSE NOTES: Family is at bedside. Educated patient's family member the indication of restraints at this time. Patient is observed attempting to pull kc catheter and as well as getting out bed. Family member verbalized understanding. Will continue to observe and monitor.
[2019-06-01] MEDS: LORazepam Inj 2mg/ml 1ml IV PRN (16:00)
[2019-06-01 16:12] VITALS: BP 143/63
--- NOTE | 2019-06-01 16:33 | Pulmonology Progress Note ---
Assessment/Plan Problems: (1) Basal pneumonia of both lungs (2) Dysphasia (3) Leukocytosis (4) COPD (chronic obstructive pulmonary disease) (5) AMOS (acute kidney injury) (6) Respiratory failure with hypoxia (7) Elevated WBC count (8) Failure to thrive Assessment/Plan ASSESSMENT: The patient is an 88-year-old male with a history of dementia, chronic obstructive pulmonary disease, prior sternotomy, congestive heart failure, and sick sinus syndrome, status post pacemaker, presenting with a respiratory illness, likely healthcare-associated pneumonia with acute kidney injury and dehydration. PROBLEM LIST: 1. Healthcare-associated pneumonia. 2. Acute hypoxemic respiratory failure secondary to above. 3. Acute kidney injury. 4. Dehydration. 5. Non ST-elevation myocardial infarction, likely demand ischemia. 6. Chronic obstructive pulmonary disease with acute exacerbation. 7. Hypertension. 8. Hypertensive heart disease. 9. Hyperlipidemia. 10. Diabetes type 2. 11. CAD, status post CABG and PCI. 12. History of Mobitz type II heart block and sick sinus syndrome,status post pacemaker. 13. Peripheral vascular disease. 14. History of angioedema in the past. 15. Dementia. TREATMENT PLAN: 1. Optimize pulmonary hygiene/mobilize as tolerated. 2. Titrate down FiO2 to keep saturations greater than 90%. 3. Abjsr-ija-[id number] and p.r.n. bronchodilators. 4. Decreased Solu-Medrol to 10 mg IV b.i.d. and taper. 5. Antibiotics per ID. 6. Monitor volumes and renal function, mIVF 7. Aspiration precautions, PO as able 8. DVT prophylaxis, heparin subcutaneous. 9. The patient is Full Code, continue to discuss goals of care. 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 Agitated D-dimer elevated but VQ neg No cough no distress no wheezing no FC Objective Last 24 Hour Vital Signs Date Time Temp Pulse Resp B/P (MAP) Pulse Ox O2 Delivery O2 Flow Rate FiO2 06/01/19 16:12 97.0 76 20 143/63 (89) 97 06/01/19 13:23 80 24 100 Nasal Cannula 2.0 28 74 20 95 06/01/19 12:00 97.2 60 20 142/61 (88) 97 06/01/19 11:46 84 06/01/19 09:37 95 111/64 06/01/19 09:00 Nasal Cannula 2.0 06/01/19 08:00 97.9 95 20 111/64 (80) 95 06/01/19 07:52 61 06/01/19 07:09 94 Nasal Cannula 2.0 28 06/01/19 07:08 79 22 100 Nasal Cannula 2.0 28 76 18 96 06/01/19 04:00 61 06/01/19 04:00 97.7 62 20 147/62 (90) 95 06/01/19 01:20 78 17 100 Nasal Cannula 2.0 28 60 18 96 06/01/19 00:00 60 06/01/19 00:00 97.8 60 19 154/63 (93) 96 05/31/19 21:57 60 150/70 05/31/19 21:00 Nasal Cannula 2.0 05/31/19 20:00 78 05/31/19 20:00 97.9 60 18 150/70 (96) 96 05/31/19 19:31 95 Nasal Cannula 2.0 28 05/31/19 19:31 83 18 100 Nasal Cannula 2.0 28 65 18 95 Intake and Output 05/31/19 06/01/19 19:00 07:00 Output Total 680 ml 600 ml Balance -680 ml -600 ml Output Urine Total 680 ml 600 ml # Bowel Movements 1 General Appearance: cachetic, other - agitated Respiratory/Chest: chest wall non-tender, rhonchi Cardiovascular: normal peripheral pulses, normal rate, regular rhythm Abdomen: normal bowel sounds, soft, non tender, no organomegaly, non distended , no mass Extremities: no cyanosis, no clubbing Skin: rash Microbiology Date/Time Source Procedure Growth Status 05/29/19 17:50 Sputum Expectorated Gram Stain - Final Complete 05/29/19 17:50 Sputum Culture - Final Pseudomonas Aeruginosa Complete Laboratory Tests 06/01/19 06:15: White Blood Count 10.2, Red Blood Count 3.07L, Hemoglobin 9.6L, Hematocrit 28.6L , Mean Corpuscular Volume 93, Mean Corpuscular Hemoglobin 31.2H, Mean Corpuscular Hemoglobin Concent 33.5, Red Cell Distribution Width 16.1H, Platelet Count 248, Mean Platelet Volume 5.3L, Neutrophils (%) (Auto) , Lymphocytes (%) (Auto) , Monocytes (%) (Auto) , Eosinophils (%) (Auto) , Basophils (%) (Auto) , Differential Total Cells Counted 100, Neutrophils % ( Manual) 94H, Lymphocytes % (Manual) 3L, Monocytes % (Manual) 3, Eosinophils % ( Manual) 0, Basophils % (Manual) 0, Band Neutrophils 0, Platelet Estimate Adequate, Platelet Morphology Normal, Hypochromasia 2+, Anisocytosis 1+, Spherocytes 1+, Sodium Level 146H, Potassium Level 3.7, Chloride Level 111H, Carbon Dioxide Level 27, Anion Gap 8, Blood Urea Nitrogen 28H, Creatinine 1.3, Estimat Glomerular Filtration Rate 52.0, Glucose Level 165H, Calcium Level 8.8 Current Medications Medications (Trade) Dose Ordered Sig/Elizabeth Route PRN Reason Start Time Stop Time Status Last Admin Dose Admin Albuterol/ Ipratropium (Albuterol/ Ipratropium) 3 ml Q6HRT HHN 05/29/19 13:00 06/03/19 12:59 06/01/19 13:22 Aspirin (ASA) 81 mg DAILY ORAL 05/30/19 09:00 06/29/19 08:59 06/01/19 09:38 Atorvastatin Calcium (Lipitor) 20 mg BEDTIME ORAL 05/29/19 21:00 06/28/19 20:59 05/31/19 21:57 Cefepime HCl 2 gm/ Dextrose 110 ml @ 220 mls/hr Q8HR IV 06/01/19 11:30 06/08/19 11:29 06/01/19 11:41 Clopidogrel Bisulfate (Plavix) 75 mg DAILY ORAL 05/30/19 09:00 06/29/19 08:59 06/01/19 09:37 Dextrose (Dextrose 50%) 25 ml Q30M PRN IV Hypoglycemia 05/29/19 08:45 06/28/19 08:44 Dextrose (Dextrose 50%) 50 ml Q30M PRN IV Hypoglycemia 05/29/19 08:45 06/28/19 08:44 Divalproex Sodium (Depakote Sprinkles) 125 mg Q12HR ORAL 05/31/19 11:00 06/28/19 17:59 06/01/19 09:38 Docusate Sodium (Colace) 100 mg THREE TIMES A DAY ORAL 05/29/19 13:00 06/28/19 12:59 06/01/19 09:38 Donepezil HCl (Aricept) 10 mg DAILY ORAL 05/30/19 09:00 06/29/19 08:59 06/01/19 09:38 Heparin Sodium (Porcine) (Heparin 5000 units/ml) 5,000 units EVERY 12 HOURS SUBQ 05/29/19 09:00 06/28/19 08:59 06/01/19 09:40 Insulin Aspart (NovoLOG) BEFORE MEALS AND HS SUBQ 05/29/19 11:30 06/28/19 11:29 06/01/19 16:30 Ipratropium [place] (Atrovent) 500 mcg Q6H PRN HHN Shortness of Breath 05/29/19 10:00 06/03/19 09:59 Lidocaine (Lidoderm 5% PATCH) 1 patch DAILY TDERMAL 05/30/19 09:00 06/29/19 08:59 06/01/19 09:39 Lorazepam (Ativan 2mg/ml 1ml) 0.25 mg Q12H PRN IV Agitation 05/31/19 09:15 06/07/19 09:14 06/01/19 16:00 Methylprednisolone Sodium Succinate (Solu-MEDROL) 20 mg Q12H IVP 05/31/19 23:00 06/30/19 22:59 06/01/19 11:41 Metoprolol Tartrate (Lopressor) 25 mg EVERY 12 HOURS ORAL 05/29/19 21:00 06/28/19 20:59 06/01/19 09:37 Sodium Chloride 1,000 ml @ 50 mls/hr Q20H IV 05/29/19 12:00 06/28/19 11:59 05/31/19 03:49 Tamsulosin HCl (Flomax) 0.4 mg DAILY ORAL 05/30/19 09:00 06/29/19 08:59 06/01/19 09:38 Kenny Rich MD Jun 01, 2019 16:33
--- NOTE | 2019-06-01 19:27 | NUR ---
HAND-OFF: Report given to Shirley POLLOCK. Patient is in stable condition. Endorsed plan of care.
[2019-06-01 20:00] VITALS: BP 139/66
--- NOTE | 2019-06-01 20:12 | NUR ---
NURSE NOTES: Received patient from MARIS Sandy. Patient is awake laying in bed restless and attempting to get out of bed. There were no signs of pain. He is AO x 1. He is not able to ambulate. Checked IV site, patent and flushed.There were no signs of erythema, bleeding, or infiltration. Bed in the lowest position with brakes on and side rails x 3. CAll light within reach. Will continue plan of care.
[2019-06-01] MEDS: Atorvastatin 20mg tab ORAL SCH (21:44)
[2019-06-02] VITALS (7 sets, daily range): BP systolic 139–155; BP diastolic 53–97
[2019-06-02] MEDS: Albuterol/Ipratropium 3ml neb HHN SCH ×4 (00:06→19:59)
--- NOTE | 2019-06-02 04:10 | NUR ---
NURSE NOTES: Patient is sleeping comfortably in semi-fowlers position. No signs of distress noted at this time.
[2019-06-02] MEDS: NovoLOG Insulin Flexpen SUBQ SCH ×4 (06:30→21:34)
[2019-06-02] MEDS: Cefepime 2gm/D5W 110ml IV SCH ×4 (06:41→14:32)
[2019-06-02] MEDS: LORazepam Inj 2mg/ml 1ml IV PRN (06:59)
--- NOTE | 2019-06-02 07:35 | NUR ---
HAND-OFF: Report given to MARIS Aceves. Patient is awake lying semi-johnson's still restless despite administration of Ativan IV PRN medication. Trejo catheter draining well to gravity. In stable condition otherwise.
--- NOTE | 2019-06-02 07:35 | NUR ---
NURSE NOTES: Received report from Shirley POLLOCK. pt in bed awake and disoriented. On bilateral soft wrist restraint intact and no skin breakdown noted. IV site in LFA 22G SL patent and asymptomatic. Trejo cath patent and note with yellow color urine in drainage bag. Call light within easy reach. Bed in lowest position and locked. Will continue to plan of care.
[2019-06-02 08:09] LABS: BASOPHILS % (AUTO) 0.4 % (0.0-2.0); EOSINOPHILS % (AUTO) 0.1 % (0.0-3.0); HEMATOCRIT 27.7 % (42.0-52.0); HEMOGLOBIN 9.4 G/DL (14.2-18.0); LYMPHOCYTES % (AUTO) 14.1 % (20.0-45.0); MEAN CORPUSCULAR VOLUME 93 FL (80-99); MONOCYTES % (AUTO) 9.9 % (1.0-10.0); NEUTROPHILS % (AUTO) 75.5 % (45.0-75.0); PLATELET COUNT 235 K/UL (150-450); RED BLOOD COUNT 2.99 M/UL (4.70-6.10); RED CELL DISTRIBUTION WIDTH 16.3 % (11.6-14.8); WHITE BLOOD COUNT 8.5 K/UL (4.8-10.8)
[2019-06-02 08:29] LABS: ANION GAP 8 mmol/L (5-15); BLOOD UREA NITROGEN 22 mg/dL (7-18); CALCIUM 8.6 MG/DL (8.5-10.1); CARBON DIOXIDE 27 MMOL/L (21-32); CHLORIDE 110 MMOL/L (98-107); CREATININE 1.1 MG/DL (0.55-1.30); POTASSIUM 3.8 MMOL/L (3.5-5.1); SODIUM 145 MMOL/L (136-145)
[2019-06-02] MEDS: Docusate 100mg cap ORAL SCH ×3 (09:06→18:08)
[2019-06-02] MEDS: Tamsulosin 0.4mg cap ORAL SCH (09:06)
[2019-06-02] MEDS: Depakote 125mg Sprinkles ORAL SCH (09:06)
[2019-06-02] MEDS: Donepezil 10mg tab ORAL SCH (09:06)
[2019-06-02] MEDS: Aspirin Baby 81mg ORAL SCH (09:06)
[2019-06-02] MEDS: Heparin 5000 units/ml inj SUBQ SCH ×2 (09:07→21:33)
--- NOTE | 2019-06-02 09:26 | Cardiac Electrophysiology PN ---
Assessment/Plan Assessment/Plan 1. NSTEMI type 2 . Due to demand ischemia in view of patient's sepsis, white count of 20,000 and renal failure with creatinine of 2.8. Echo showed Nl EF 55%. LE duplex no DVT On aspirin, Lopressor 25 bid, and Lipitor 40. Hx of CABG. 2. Status post [facility] Dm pacemaker. Interrogated and showed Nl Fx. Battery more than a year left 3. Sepsis, COPD, pneumonia and hypoxia. On Zosyn per ID DDimer was positive but VQ low probability 05/31/19 4. Advanced dementia. 5. Dysphagia, passed Swallow eval but still refusing eating. Food Pocketing DW RN and Son Subjective Subjective Family took off the restraints and he fell but X Rays no Fx, on restraints. . Passed swallow eval. V pacing on tele. DDimer was high and had VQ scan that was low probability 05/31/19 Objective Last 24 Hour Vital Signs Date Time Temp Pulse Resp B/P (MAP) Pulse Ox O2 Delivery O2 Flow Rate FiO2 06/02/19 09:06 76 139/53 06/02/19 06:54 73 18 99 Nasal Cannula 2.0 28 71 18 99 06/02/19 06:54 99 Nasal Cannula 2.0 28 06/02/19 04:00 85 06/02/19 04:00 98.0 62 19 149/92 (111) 96 06/02/19 00:16 76 20 98 Nasal Cannula 2.0 28 72 20 93 06/02/19 00:00 68 06/02/19 00:00 98.1 66 18 147/97 (114) 95 06/01/19 21:44 64 139/66 06/01/19 21:00 Nasal Cannula 2.0 06/01/19 20:00 97.9 64 19 139/66 (90) 97 06/01/19 20:00 65 06/01/19 19:19 68 22 100 Nasal Cannula 2.0 28 63 22 97 06/01/19 19:15 97 Nasal Cannula 2.0 28 06/01/19 16:22 72 06/01/19 16:12 97.0 76 20 143/63 (89) 97 06/01/19 13:23 80 24 100 Nasal Cannula 2.0 28 74 20 95 06/01/19 12:00 97.2 60 20 142/61 (88) 97 06/01/19 11:46 84 06/01/19 09:37 95 111/64 Intake and Output 06/01/19 06/02/19 19:00 07:00 Intake Total 1000 ml 598 ml Output Total 1000 ml 1600 ml Balance 0 ml -1002 ml Intake Oral 240 ml IV Total 760 ml 598 ml Output Urine Total 1000 ml 1600 ml # Bowel Movements 1 Laboratory Tests Test 06/02/19 06:25 White Blood Count 8.5 K/UL (4.8-10.8) Red Blood Count 2.99 M/UL (4.70-6.10) L Hemoglobin 9.4 G/DL (14.2-18.0) L Hematocrit 27.7 % (42.0-52.0) L Mean Corpuscular Volume 93 FL (80-99) Mean Corpuscular Hemoglobin 31.5 PG (27.0-31.0) H Mean Corpuscular Hemoglobin Concent 34.0 G/DL (32.0-36.0) Red Cell Distribution Width 16.3 % (11.6-14.8) H Platelet Count 235 K/UL (150-450) Mean Platelet Volume 5.1 FL (6.5-10.1) L Neutrophils (%) (Auto) 75.5 % (45.0-75.0) H Lymphocytes (%) (Auto) 14.1 % (20.0-45.0) L Monocytes (%) (Auto) 9.9 % (1.0-10.0) Eosinophils (%) (Auto) 0.1 % (0.0-3.0) Basophils (%) (Auto) 0.4 % (0.0-2.0) Sodium Level 145 MMOL/L (136-145) Potassium Level 3.8 MMOL/L (3.5-5.1) Chloride Level 110 MMOL/L (98-107) H Carbon Dioxide Level 27 MMOL/L (21-32) Anion Gap 8 mmol/L (5-15) Blood Urea Nitrogen 22 mg/dL (7-18) H Creatinine 1.1 MG/DL (0.55-1.30) Estimat Glomerular Filtration Rate > 60 mL/min (>60) Glucose Level 120 MG/DL (74-106) H Calcium Level 8.6 MG/DL (8.5-10.1) Objective HEAD AND NECK: No JVD. LUNGS: Coarse rhonchi. CARDIOVASCULAR: Regular S1 and S2 with no gallop or murmur. ABDOMEN: Soft. EXTREMITIES: No pitting edema. Sunny Cunningham MD Jun 02, 2019 09:26
[2019-06-02] MEDS ORDERED: LORazepam Inj 2mg/ml 1ml IV ONE (10:30)
--- NOTE | 2019-06-02 10:37 | General Progress Note ---
Assessment/Plan Status: progressing, unchanged Assessment/Plan: Assessment - AMS - anorexia - Anemia - Resolved azotemia - FTT Recommendations - po diet as tolerated - follow labs and exam - psych f/u - May need TF Subjective Allergies: Coded Allergies: ACETAMINOPHEN (Verified Allergy, Unknown, 05/29/19) HYDROCODONE (Verified Allergy, Unknown, 05/29/19) Subjective Confused d/w family at bedside poor po per RN Objective Last 24 Hour Vital Signs Date Time Temp Pulse Resp B/P (MAP) Pulse Ox O2 Delivery O2 Flow Rate FiO2 06/02/19 09:06 76 139/53 06/02/19 08:00 98.2 76 18 139/53 (81) 96 06/02/19 06:54 73 18 99 Nasal Cannula 2.0 28 71 18 99 06/02/19 06:54 99 Nasal Cannula 2.0 28 06/02/19 04:00 85 06/02/19 04:00 98.0 62 19 149/92 (111) 96 06/02/19 00:16 76 20 98 Nasal Cannula 2.0 28 72 20 93 06/02/19 00:00 68 06/02/19 00:00 98.1 66 18 147/97 (114) 95 06/01/19 21:44 64 139/66 06/01/19 21:00 Nasal Cannula 2.0 06/01/19 20:00 97.9 64 19 139/66 (90) 97 06/01/19 20:00 65 06/01/19 19:19 68 22 100 Nasal Cannula 2.0 28 63 22 97 06/01/19 19:15 97 Nasal Cannula 2.0 28 06/01/19 16:22 72 06/01/19 16:12 97.0 76 20 143/63 (89) 97 06/01/19 13:23 80 24 100 Nasal Cannula 2.0 28 74 20 95 06/01/19 12:00 97.2 60 20 142/61 (88) 97 06/01/19 11:46 84 Intake and Output 06/01/19 06/02/19 19:00 07:00 Intake Total 1000 ml 598 ml Output Total 1000 ml 1600 ml Balance 0 ml -1002 ml Intake Oral 240 ml IV Total 760 ml 598 ml Output Urine Total 1000 ml 1600 ml # Bowel Movements 1 Laboratory Tests 06/02/19 06:25: White Blood Count 8.5, Red Blood Count 2.99L, Hemoglobin 9.4L, Hematocrit 27.7L , Mean Corpuscular Volume 93, Mean Corpuscular Hemoglobin 31.5H, Mean Corpuscular Hemoglobin Concent 34.0, Red Cell Distribution Width 16.3H, Platelet Count 235, Mean Platelet Volume 5.1L, Neutrophils (%) (Auto) 75.5H, Lymphocytes (%) (Auto) 14.1L, Monocytes (%) (Auto) 9.9, Eosinophils (%) (Auto) 0.1, Basophils (%) (Auto) 0.4, Sodium Level 145, Potassium Level 3.8, Chloride Level 110H, Carbon Dioxide Level 27, Anion Gap 8, Blood Urea Nitrogen 22H, Creatinine 1.1, Estimat Glomerular Filtration Rate > 60, Glucose Level 120H, Calcium Level 8.6 Height (Feet): 5 Height (Inches): 11.00 Weight (Pounds): 200 Objective confused incoherent restrained CTA RR abd soft no edema Veronique Lainez MD Jun 02, 2019 10:37
--- NOTE | 2019-06-02 11:11 | General Progress Note ---
Assessment/Plan Status: progressing, unchanged Assessment/Plan: 1. Pneumonia - cont cefepime 1 gm IV for total of 3 wks for peudomonas pneumonia per ID. D/C planning for tomorrow. Transfer to Med surg today. 2. Leukocytosis improving, possible sepsis - improved. cont IV abx. 3. Elevated Troponin 2nd to NSTEMI due to demand Ischemia most likely due to DALILA and sepsis - cardiology following. 4. COPD exacerbation - on solumedrol and pulmonary following. 5. Hypotension 2nd to sepsis and pneumonia - improved. 6. Dementia - on oral feeding and oral meds now. 7. Acute Hypoxemic respiratory Failure 2nd to pneumonia and sepsis 8. AMOS - improving with hydration. 9. Hypertensive heart disease - on metoprolol 25 mg po bid. 10. HLD - cont oral meds. 11. DM II - start SSI. 12. CAD s/p CABG and stent placement. 13. H/O PVD 14. H/O angioedema in the past. Subjective Date patient seen: Jun 02, 2019 Time patient seen: 11:00 Constitutional: Reports: weakness HEENT: Reports: no symptoms Cardiovascular: Reports: no symptoms Respiratory: Reports: no symptoms Gastrointestinal/Abdominal: Reports: no symptoms Genitourinary: Reports: no symptoms Neurologic/Psychiatric: Reports: other - dementia Endocrine: Reports: no symptoms Hematologic/Lymphatic: Reports: no symptoms Allergies: Coded Allergies: ACETAMINOPHEN (Verified Allergy, Unknown, 05/29/19) HYDROCODONE (Verified Allergy, Unknown, 05/29/19) Subjective This morning he is awake and his son at bedside. His son states he is better mentally but he still has dementia. no sob or chest pain. no fever or chills. Objective Last 24 Hour Vital Signs Date Time Temp Pulse Resp B/P (MAP) Pulse Ox O2 Delivery O2 Flow Rate FiO2 06/02/19 09:06 76 139/53 06/02/19 09:00 Nasal Cannula 2.0 06/02/19 08:00 98.2 76 18 139/53 (81) 96 06/02/19 06:54 73 18 99 Nasal Cannula 2.0 28 71 18 99 06/02/19 06:54 99 Nasal Cannula 2.0 28 06/02/19 04:00 85 06/02/19 04:00 98.0 62 19 149/92 (111) 96 06/02/19 00:16 76 20 98 Nasal Cannula 2.0 28 72 20 93 06/02/19 00:00 68 06/02/19 00:00 98.1 66 18 147/97 (114) 95 06/01/19 21:44 64 139/66 06/01/19 21:00 Nasal Cannula 2.0 06/01/19 20:00 97.9 64 19 139/66 (90) 97 06/01/19 20:00 65 06/01/19 19:19 68 22 100 Nasal Cannula 2.0 28 63 22 97 06/01/19 19:15 97 Nasal Cannula 2.0 28 06/01/19 16:22 72 06/01/19 16:12 97.0 76 20 143/63 (89) 97 06/01/19 13:23 80 24 100 Nasal Cannula 2.0 28 74 20 95 06/01/19 12:00 97.2 60 20 142/61 (88) 97 06/01/19 11:46 84 Intake and Output 06/01/19 06/02/19 19:00 07:00 Intake Total 1000 ml 598 ml Output Total 1000 ml 1600 ml Balance 0 ml -1002 ml Intake Oral 240 ml IV Total 760 ml 598 ml Output Urine Total 1000 ml 1600 ml # Bowel Movements 1 Laboratory Tests 06/02/19 06:25: White Blood Count 8.5, Red Blood Count 2.99L, Hemoglobin 9.4L, Hematocrit 27.7L , Mean Corpuscular Volume 93, Mean Corpuscular Hemoglobin 31.5H, Mean Corpuscular Hemoglobin Concent 34.0, Red Cell Distribution Width 16.3H, Platelet Count 235, Mean Platelet Volume 5.1L, Neutrophils (%) (Auto) 75.5H, Lymphocytes (%) (Auto) 14.1L, Monocytes (%) (Auto) 9.9, Eosinophils (%) (Auto) 0.1, Basophils (%) (Auto) 0.4, Sodium Level 145, Potassium Level 3.8, Chloride Level 110H, Carbon Dioxide Level 27, Anion Gap 8, Blood Urea Nitrogen 22H, Creatinine 1.1, Estimat Glomerular Filtration Rate > 60, Glucose Level 120H, Calcium Level 8.6 Height (Feet): 5 Height (Inches): 11.00 Weight (Pounds): 200 General Appearance: no apparent distress, alert EENT: normal ENT inspection Neck: non-tender, supple Cardiovascular: normal rate, regular rhythm Respiratory/Chest: lungs clear, normal breath sounds, no respiratory distress Abdomen: normal bowel sounds, non tender, soft Extremities: normal range of motion, non-tender Edema: no edema noted Arm (L), no edema noted Arm (R), no edema noted Leg (L), no edema noted Leg (R), no edema noted Pedal (L), no edema noted Pedal (R), no edema noted Generalized Neurologic: alert, responsive Skin: warm/dry Ronaldo Muniz MD Jun 02, 2019 11:11
[2019-06-02] MEDS: Solu-MEDROL 40mg Inj IVP SCH (11:59)
[2019-06-02] MEDS ORDERED: Ipratropium 0.02% Inh Soln 2.5ml UD HHN PRN (18:15)
[2019-06-02] MEDS ORDERED: LORazepam Inj 2mg/ml 1ml IV PRN (18:15)
--- NOTE | 2019-06-02 18:25 | Pulmonology Progress Note ---
Assessment/Plan Problems: (1) Basal pneumonia of both lungs (2) Dysphasia (3) Leukocytosis (4) COPD (chronic obstructive pulmonary disease) (5) AMOS (acute kidney injury) (6) Respiratory failure with hypoxia (7) Elevated WBC count (8) Failure to thrive Assessment/Plan ASSESSMENT: The patient is an 88-year-old male with a history of dementia, chronic obstructive pulmonary disease, prior sternotomy, congestive heart failure, and sick sinus syndrome, status post pacemaker, presenting with a respiratory illness, likely healthcare-associated pneumonia with acute kidney injury and dehydration. PROBLEM LIST: 1. Healthcare-associated pneumonia. 2. Acute hypoxemic respiratory failure secondary to above. 3. Acute kidney injury. 4. Dehydration. 5. Non ST-elevation myocardial infarction, likely demand ischemia. 6. Chronic obstructive pulmonary disease with acute exacerbation. 7. Hypertension. 8. Hypertensive heart disease. 9. Hyperlipidemia. 10. Diabetes type 2. 11. CAD, status post CABG and PCI. 12. History of Mobitz type II heart block and sick sinus syndrome,status post pacemaker. 13. Peripheral vascular disease. 14. History of angioedema in the past. 15. Dementia. TREATMENT PLAN: 1. Optimize pulmonary hygiene/mobilize as tolerated. 2. Titrate down FiO2 to keep saturations greater than 90%. 3. [id number] and p.r.n. bronchodilators. 4. D/C Solu-Medrol and observe off steroids. 5. Antibiotics per ID. 6. Monitor volumes and renal function 7. Aspiration precautions, PO as able 8. DVT prophylaxis, heparin subcutaneous. 9. The patient is Full Code, continue to discuss goals of care. Subjective Allergies: Coded Allergies: ACETAMINOPHEN (Verified Allergy, Unknown, 05/29/19) HYDROCODONE (Verified Allergy, Unknown, 05/29/19) Subjective AFVSS now on 2L Barely eating Less interactive today No cough no distress no wheezing no FC Objective Last 24 Hour Vital Signs Date Time Temp Pulse Resp B/P (MAP) Pulse Ox O2 Delivery O2 Flow Rate FiO2 06/02/19 16:00 97.9 60 17 148/59 (88) 94 06/02/19 13:05 71 18 99 Nasal Cannula 2.0 28 68 18 97 06/02/19 12:00 98.9 65 19 140/53 (82) 95 06/02/19 09:06 76 139/53 06/02/19 09:00 Nasal Cannula 2.0 06/02/19 08:00 98.2 76 18 139/53 (81) 96 06/02/19 06:54 73 18 99 Nasal Cannula 2.0 28 71 18 99 06/02/19 06:54 99 Nasal Cannula 2.0 28 06/02/19 04:00 85 06/02/19 04:00 98.0 62 19 149/92 (111) 96 06/02/19 00:16 76 20 98 Nasal Cannula 2.0 28 72 20 93 06/02/19 00:00 68 06/02/19 00:00 98.1 66 18 147/97 (114) 95 06/01/19 21:44 64 139/66 06/01/19 21:00 Nasal Cannula 2.0 06/01/19 20:00 97.9 64 19 139/66 (90) 97 06/01/19 20:00 65 06/01/19 19:19 68 22 100 Nasal Cannula 2.0 28 63 22 97 06/01/19 19:15 97 Nasal Cannula 2.0 28 Intake and Output 06/01/19 06/02/19 19:00 07:00 Intake Total 1000 ml 598 ml Output Total 1000 ml 1600 ml Balance 0 ml -1002 ml Intake Oral 240 ml IV Total 760 ml 598 ml Output Urine Total 1000 ml 1600 ml # Bowel Movements 1 General Appearance: no acute distress, cachetic HEENT: normocephalic, atraumatic, anicteric, mucous membranes moist Respiratory/Chest: lungs clear - but distant Cardiovascular: normal peripheral pulses, normal rate, regular rhythm Abdomen: normal bowel sounds, soft, non tender, no organomegaly, non distended , no mass Extremities: no cyanosis, no clubbing, no edema Laboratory Tests 06/02/19 06:25: White Blood Count 8.5, Red Blood Count 2.99L, Hemoglobin 9.4L, Hematocrit 27.7L , Mean Corpuscular Volume 93, Mean Corpuscular Hemoglobin 31.5H, Mean Corpuscular Hemoglobin Concent 34.0, Red Cell Distribution Width 16.3H, Platelet Count 235, Mean Platelet Volume 5.1L, Neutrophils (%) (Auto) 75.5H, Lymphocytes (%) (Auto) 14.1L, Monocytes (%) (Auto) 9.9, Eosinophils (%) (Auto) 0.1, Basophils (%) (Auto) 0.4, Sodium Level 145, Potassium Level 3.8, Chloride Level 110H, Carbon Dioxide Level 27, Anion Gap 8, Blood Urea Nitrogen 22H, Creatinine 1.1, Estimat Glomerular Filtration Rate > 60, Glucose Level 120H, Calcium Level 8.6 Current Medications Medications (Trade) Dose Ordered Sig/Elizabeth Route PRN Reason Start Time Stop Time Status Last Admin Dose Admin Albuterol/ Ipratropium (Albuterol/ Ipratropium) 3 ml Q6HRT HHN 06/02/19 19:00 06/03/19 12:59 Aspirin (ASA) 81 mg DAILY ORAL 06/03/19 09:00 06/29/19 08:59 Atorvastatin Calcium (Lipitor) 20 mg BEDTIME ORAL 06/02/19 21:00 06/28/19 20:59 Cefepime HCl 2 gm/ Dextrose 110 ml @ 220 mls/hr Q8HR IV 06/02/19 22:00 06/08/19 11:29 Clopidogrel Bisulfate (Plavix) 75 mg DAILY ORAL 06/03/19 09:00 06/29/19 08:59 Dextrose (Dextrose 50%) 25 ml Q30M PRN IV Hypoglycemia 06/02/19 18:15 06/28/19 08:44 Dextrose (Dextrose 50%) 50 ml Q30M PRN IV Hypoglycemia 06/02/19 18:15 06/28/19 08:44 Divalproex Sodium (Depakote Sprinkles) 125 mg Q12HR ORAL 06/02/19 21:00 06/28/19 17:59 Docusate Sodium (Colace) 100 mg THREE TIMES A DAY ORAL 06/03/19 09:00 06/28/19 12:59 Donepezil HCl (Aricept) 10 mg DAILY ORAL 06/03/19 09:00 06/29/19 08:59 Heparin Sodium (Porcine) (Heparin 5000 units/ml) 5,000 units EVERY 12 HOURS SUBQ 06/02/19 21:00 06/28/19 08:59 Insulin Aspart (NovoLOG) BEFORE MEALS AND HS SUBQ 06/02/19 21:00 06/28/19 11:29 Ipratropium [place] (Atrovent) 500 mcg Q6H PRN HHN Shortness of Breath 06/02/19 18:15 06/03/19 18:14 Lidocaine (Lidoderm 5% PATCH) 1 patch DAILY TDERMAL 06/03/19 09:00 06/29/19 08:59 Lorazepam (Ativan 2mg/ml 1ml) 0.25 mg Q12H PRN IV Agitation 06/02/19 18:15 06/07/19 18:14 Methylprednisolone Sodium Succinate (Solu-MEDROL) 10 mg Q12H IVP 06/02/19 23:00 06/30/19 22:59 Metoprolol Tartrate (Lopressor) 25 mg EVERY 12 HOURS ORAL 06/02/19 21:00 06/28/19 20:59 Sodium Chloride 1,000 ml @ 50 mls/hr Q20H IV 06/02/19 18:15 06/28/19 11:59 Tamsulosin HCl (Flomax) 0.4 mg DAILY ORAL 06/03/19 09:00 06/29/19 08:59 Kenny Rich MD Jun 02, 2019 18:24
--- NOTE | 2019-06-02 18:32 | NUR ---
HAND-OFF: Report given to Jennifer POLLOCK. Pt remains stable.
--- NOTE | 2019-06-02 18:33 | NUR ---
NURSE NOTES: Patient transferred from Tele; I received report from MARIS Aceves; belonging list sign by transferring and receiving nurse's; patient non verbal; on room air, no sing of distress and shortness of breath; no sing of chest pain; Iv Left For-Arm 22G NS 50cc running; wound picture taken and uploaded; wound care provided; bilateral soft wrist Restrain in place; side rails up x2, breaks engaged, bed at lowest position, bed alarm on; call light within reach; will keep monitoring.
--- NOTE | 2019-06-02 19:28 | NUR ---
HAND-OFF: Report given to MARSI Yi.
--- NOTE | 2019-06-02 19:36 | NUR ---
NURSE NOTES: Received patient awake, confused, on bilateral soft wrist restraints. Kept clean and dry.
[2019-06-02] MEDS ORDERED: Depakote 125mg Sprinkles ORAL SCH (21:00)
[2019-06-02] MEDS ORDERED: Atorvastatin 20mg tab ORAL SCH (21:00)
[2019-06-02] MEDS: Cefepime HCl 2 GM in D5W 110 ML IV SCH (21:35)
--- NOTE | 2019-06-02 21:55 | Infectious Diseases Prog Note ---
Assessment/Plan Problems: (1) Basal pneumonia of both lungs Assessment & Plan: confirmed on CT chest , with cough and congestion , suspect aspiration , due to pseudomonas aeruginosa . continue cefepime treatment for 3 weeks . aspiration precaution, keep HOB > 30 degree. EOT 06/22/19 (2) COPD (chronic obstructive pulmonary disease) Assessment & Plan: with exacerbation , continue antibiotics , inhalers , titrate oxygen as needed (3) Leukocytosis Assessment & Plan: suspect due to the above, with negative blood culture x 2 , less likely sepsis (4) AMOS (acute kidney injury) Assessment & Plan: continue hydration, with close monitoring of renal function , avoid nephrotoxics (5) Respiratory failure with hypoxia Assessment & Plan: suspect due to the above, V/Q scan ruled out PE as an etiology , and CT chest confirmed pneumonia ,pulmonary is following Subjective ROS Limited/Unobtainable: Yes Allergies: Coded Allergies: ACETAMINOPHEN (Verified Allergy, Unknown, 05/29/19) HYDROCODONE (Verified Allergy, Unknown, 05/29/19) Subjective He was awake and alert, lying in bed, but still confused and on restrains . on high flow oxygen with less requirements , A febrile , less congested Objective Vital Signs Last 24 Hour Vital Signs Date Time Temp Pulse Resp B/P (MAP) Pulse Ox O2 Delivery O2 Flow Rate FiO2 06/02/19 21:32 60 155/71 06/02/19 20:26 Nasal Cannula 2.0 06/02/19 20:23 97.3 60 20 155/71 (99) 96 06/02/19 19:59 68 18 99 Nasal Cannula 2.0 28 64 20 96 06/02/19 19:59 96 Nasal Cannula 2.0 28 06/02/19 18:38 97.5 60 17 147/67 (93) 94 06/02/19 16:00 97.9 60 17 148/59 (88) 94 06/02/19 13:05 71 18 99 Nasal Cannula 2.0 28 68 18 97 06/02/19 12:00 98.9 65 19 140/53 (82) 95 06/02/19 09:06 76 139/53 06/02/19 09:00 Nasal Cannula 2.0 06/02/19 08:00 98.2 76 18 139/53 (81) 96 06/02/19 06:54 73 18 99 Nasal Cannula 2.0 28 71 18 99 06/02/19 06:54 99 Nasal Cannula 2.0 28 06/02/19 04:00 85 06/02/19 04:00 98.0 62 19 149/92 (111) 96 06/02/19 00:16 76 20 98 Nasal Cannula 2.0 28 72 20 93 06/02/19 00:00 68 06/02/19 00:00 98.1 66 18 147/97 (114) 95 Height (Feet): 5 Height (Inches): 11.00 Weight (Pounds): 200 General Appearance: WD/WN, no acute distress HEENT: normocephalic, atraumatic, anicteric, mucous membranes moist, PERRL Respiratory/Chest: chest wall non-tender, no respiratory distress, no accessory muscle use Cardiovascular: normal peripheral pulses, normal rate, regular rhythm, no gallop/murmur, no JVD Abdomen: normal bowel sounds, soft, non tender, no organomegaly, non distended , no mass, no scars Genitourinary: normal external genitalia Extremities: no cyanosis, no clubbing Skin: no rash, no lesions Neurologic/Psychiatric: alert, unresponsiveness Lymphatic: no neck adenopathy, no groin adenopathy Musculoskeletal: normal muscle bulk, no effusion Laboratory Tests Test 06/02/19 06:25 White Blood Count 8.5 K/UL (4.8-10.8) Red Blood Count 2.99 M/UL (4.70-6.10) L Hemoglobin 9.4 G/DL (14.2-18.0) L Hematocrit 27.7 % (42.0-52.0) L Mean Corpuscular Volume 93 FL (80-99) Mean Corpuscular Hemoglobin 31.5 PG (27.0-31.0) H Mean Corpuscular Hemoglobin Concent 34.0 G/DL (32.0-36.0) Red Cell Distribution Width 16.3 % (11.6-14.8) H Platelet Count 235 K/UL (150-450) Mean Platelet Volume 5.1 FL (6.5-10.1) L Neutrophils (%) (Auto) 75.5 % (45.0-75.0) H Lymphocytes (%) (Auto) 14.1 % (20.0-45.0) L Monocytes (%) (Auto) 9.9 % (1.0-10.0) Eosinophils (%) (Auto) 0.1 % (0.0-3.0) Basophils (%) (Auto) 0.4 % (0.0-2.0) Sodium Level 145 MMOL/L (136-145) Potassium Level 3.8 MMOL/L (3.5-5.1) Chloride Level 110 MMOL/L (98-107) H Carbon Dioxide Level 27 MMOL/L (21-32) Anion Gap 8 mmol/L (5-15) Blood Urea Nitrogen 22 mg/dL (7-18) H Creatinine 1.1 MG/DL (0.55-1.30) Estimat Glomerular Filtration Rate > 60 mL/min (>60) Glucose Level 120 MG/DL (74-106) H Calcium Level 8.6 MG/DL (8.5-10.1) Current Medications Medications (Trade) Dose Ordered Sig/Elizabeth Route PRN Reason Start Time Stop Time Status Last Admin Dose Admin Albuterol/ Ipratropium (Albuterol/ Ipratropium) 3 ml Q6HRT HHN 06/02/19 19:00 06/03/19 12:59 06/02/19 19:59 Aspirin (ASA) 81 mg DAILY ORAL 06/03/19 09:00 06/29/19 08:59 Atorvastatin Calcium (Lipitor) 20 mg BEDTIME ORAL 06/02/19 21:00 06/28/19 20:59 06/02/19 21:32 Cefepime HCl 2 gm/ Dextrose 110 ml @ 220 mls/hr Q8HR IV 06/02/19 22:00 06/08/19 11:29 06/02/19 21:35 Clopidogrel Bisulfate (Plavix) 75 mg DAILY ORAL 06/03/19 09:00 06/29/19 08:59 Dextrose (Dextrose 50%) 25 ml Q30M PRN IV Hypoglycemia 06/02/19 18:15 06/28/19 08:44 Dextrose (Dextrose 50%) 50 ml Q30M PRN IV Hypoglycemia 06/02/19 18:15 06/28/19 08:44 Docusate Sodium (Colace) 100 mg THREE TIMES A DAY ORAL 06/03/19 09:00 06/28/19 12:59 Donepezil HCl (Aricept) 10 mg DAILY ORAL 06/03/19 09:00 06/29/19 08:59 Heparin Sodium (Porcine) (Heparin 5000 units/ml) 5,000 units EVERY 12 HOURS SUBQ 06/02/19 21:00 06/28/19 08:59 06/02/19 21:33 Insulin Aspart (NovoLOG) BEFORE MEALS AND HS SUBQ 06/02/19 21:00 06/28/19 11:29 06/02/19 21:34 Ipratropium [place] (Atrovent) 500 mcg Q6H PRN HHN Shortness of Breath 06/02/19 18:15 06/03/19 18:14 Lidocaine (Lidoderm 5% PATCH) 1 patch DAILY TDERMAL 06/03/19 09:00 06/29/19 08:59 Lorazepam (Ativan 2mg/ml 1ml) 0.25 mg Q12H PRN IV Agitation 06/02/19 18:15 06/07/19 18:14 Metoprolol Tartrate (Lopressor) 25 mg EVERY 12 HOURS ORAL 06/02/19 21:00 06/28/19 20:59 06/02/19 21:32 Sodium Chloride 1,000 ml @ 50 mls/hr Q20H IV 06/02/19 18:15 06/28/19 11:59 06/02/19 18:43 Tamsulosin HCl (Flomax) 0.4 mg DAILY ORAL 06/03/19 09:00 06/29/19 08:59 Melina Jones M.D. Jun 02, 2019 21:55
[2019-06-02] MEDS ORDERED: Solu-MEDROL 40mg Inj IVP SCH (23:00)
[2019-06-03 00:19] VITALS: BP 151/63
[2019-06-03] MEDS: Albuterol/Ipratropium 3ml neb HHN SCH ×2 (00:29→06:41)
[2019-06-03 04:15] VITALS: BP 150/59
[2019-06-03] MEDS: Cefepime HCl 2 GM in D5W 110 ML IV SCH ×2 (05:00→14:00)
[2019-06-03] MEDS: NovoLOG Insulin Flexpen SUBQ SCH ×2 (06:30→11:30)
--- NOTE | 2019-06-03 07:26 | NUR ---
HAND-OFF: Report given to Vaibhav Snyder RN.
--- NOTE | 2019-06-03 07:50 | NUR ---
NURSE NOTES: PT AXOX1, RESTING IN BED. RN RECEIVED REPORT PT IS HIGH FALL RISK DUE TO PREVIOUS FALL DURING HOSPITALIZATION. PT IS RESTLESS. BED IN LOWEST POSITION WITH BEDSIDE RAILS X3 RAISED. BED ALARM ON ZONE 2. IN HIGH ASHBY'S POSITION. PT HAS BILATERAL SOFT WRIST RESTRAINTS. BILATERAL WRISTS SKIN INTACT, NO SWELLING NOTED. PT APPEARS CALM AFTER A FEW MINUTES OF RESTLESSNESS. PT IS AXOX1 AND UNABLE TO COMPREHEND RN'S FALL RISK EDUCATION. YELLOW FALL RISK BAND APPLIED. WILL CONTINUE TO MONITOR.
[2019-06-03 08:00] VITALS: BP 108/51
[2019-06-03] MEDS ORDERED: ASPIRIN81 MG ORAL (08:49)
[2019-06-03] MEDS ORDERED: CEFEPIME-D2 GM/50 ML IVPB (08:51)
--- NOTE | 2019-06-03 08:55 | General Progress Note ---
Assessment/Plan Status: progressing, unchanged Assessment/Plan: 1. Pneumonia - cont cefepime 2 gm IV q 8 hrs for total of 3 wks for peudomonas pneumonia per ID. D/C back to [facility] today. 2. Leukocytosis improving, possible sepsis - improved. cont IV abx. 3. Elevated Troponin 2nd to NSTEMI due to demand Ischemia most likely due to DALILA and sepsis - cardiology following. 4. COPD exacerbation - improved. 5. Hypotension 2nd to sepsis and pneumonia - improved. 6. Dementia - on oral feeding and oral meds now. 7. Acute Hypoxemic respiratory Failure 2nd to pneumonia and sepsis 8. AMOS - improving with hydration. 9. Hypertensive heart disease - on metoprolol 25 mg po bid. 10. HLD - cont oral meds. 11. DM II - start SSI. 12. CAD s/p CABG and stent placement. 13. H/O PVD 14. H/O angioedema in the past. Subjective Date patient seen: Jun 03, 2019 Time patient seen: 08:40 Constitutional: Reports: no symptoms HEENT: Reports: no symptoms Cardiovascular: Reports: no symptoms Respiratory: Reports: no symptoms Gastrointestinal/Abdominal: Reports: no symptoms Genitourinary: Reports: no symptoms Neurologic/Psychiatric: Reports: no symptoms Endocrine: Reports: no symptoms Hematologic/Lymphatic: Reports: no symptoms Allergies: Coded Allergies: ACETAMINOPHEN (Verified Allergy, Unknown, 05/29/19) HYDROCODONE (Verified Allergy, Unknown, 05/29/19) Subjective This morning he is awake and doing better. no sob or chest pain. no fever or chills. Objective Last 24 Hour Vital Signs Date Time Temp Pulse Resp B/P (MAP) Pulse Ox O2 Delivery O2 Flow Rate FiO2 06/03/19 08:00 98.1 70 19 108/51 (70) 92 06/03/19 06:42 72 18 98 Nasal Cannula 2.0 28 77 20 97 06/03/19 06:41 97 Nasal Cannula 2.0 28 06/03/19 04:15 97.7 62 18 150/59 (89) 93 06/03/19 00:29 68 18 98 Nasal Cannula 2.0 28 61 16 95 06/03/19 00:19 97.9 61 20 151/63 (92) 93 06/02/19 21:32 60 155/71 06/02/19 20:26 Nasal Cannula 2.0 06/02/19 20:23 97.3 60 20 155/71 (99) 96 06/02/19 19:59 68 18 99 Nasal Cannula 2.0 28 64 20 96 06/02/19 19:59 96 Nasal Cannula 2.0 28 06/02/19 18:38 97.5 60 17 147/67 (93) 94 06/02/19 16:00 97.9 60 17 148/59 (88) 94 06/02/19 13:05 71 18 99 Nasal Cannula 2.0 28 68 18 97 06/02/19 12:00 98.9 65 19 140/53 (82) 95 06/02/19 09:06 76 139/53 06/02/19 09:00 Nasal Cannula 2.0 Intake and Output 06/02/19 06/03/19 19:00 07:00 Intake Total 695 ml Balance 695 ml IV Total 695 ml # Voids 1 2 Height (Feet): 5 Height (Inches): 11.00 Weight (Pounds): 200 General Appearance: no apparent distress, alert EENT: normal ENT inspection Neck: non-tender, supple Cardiovascular: normal rate, regular rhythm Respiratory/Chest: lungs clear, normal breath sounds Abdomen: non tender, soft Extremities: normal range of motion, non-tender Edema: no edema noted Arm (L), no edema noted Arm (R), no edema noted Leg (L), no edema noted Leg (R), no edema noted Pedal (L), no edema noted Pedal (R), no edema noted Generalized Neurologic: alert, responsive Skin: warm/dry Ronaldo Muniz MD Jun 03, 2019 08:55
[2019-06-03] MEDS ORDERED: Aspirin Baby 81mg ORAL SCH (09:00)
[2019-06-03] MEDS: Docusate 100mg cap ORAL SCH ×2 (09:00→14:00)
[2019-06-03] MEDS ORDERED: Tamsulosin 0.4mg cap ORAL SCH (09:00)
[2019-06-03] MEDS ORDERED: Donepezil 10mg tab ORAL SCH (09:00)
--- NOTE | 2019-06-03 09:10 | General Progress Note ---
Assessment/Plan Problem List: (1) Elevated WBC count ICD Codes: D72.829 - Elevated white blood cell count, unspecified SNOMED: 574762027, 867381817 (2) AMOS (acute kidney injury) ICD Codes: N17.9 - Acute kidney failure, unspecified SNOMED: 07517405, 5679166 (3) Respiratory failure with hypoxia ICD Codes: J96.91 - Respiratory failure, unspecified with hypoxia SNOMED: 96487837957159171 (4) COPD (chronic obstructive pulmonary disease) ICD Codes: J44.9 - Chronic obstructive pulmonary disease, unspecified SNOMED: 26460852 (5) Leukocytosis ICD Codes: D72.829 - Elevated white blood cell count, unspecified SNOMED: 776978819, 838539839 (6) Dysphasia ICD Codes: R47.02 - Dysphasia SNOMED: 77674546 (7) Failure to thrive SNOMED: 43226029 (8) Basal pneumonia of both lungs ICD Codes: J18.9 - Pneumonia, unspecified organism SNOMED: 839353726 (9) AMOS (acute kidney injury) ICD Codes: N17.9 - Acute kidney failure, unspecified SNOMED: 9621675, 51119960 Status: progressing, unchanged Assessment/Plan: eating better hold NGT placement and feeding for now patient is being discharged to rehab needs out patient fu Subjective ROS Limited/Unobtainable: Yes Allergies: Coded Allergies: ACETAMINOPHEN (Verified Allergy, Unknown, 05/29/19) HYDROCODONE (Verified Allergy, Unknown, 05/29/19) Objective Last 24 Hour Vital Signs Date Time Temp Pulse Resp B/P (MAP) Pulse Ox O2 Delivery O2 Flow Rate FiO2 06/03/19 08:00 98.1 70 19 108/51 (70) 92 06/03/19 06:42 72 18 98 Nasal Cannula 2.0 28 77 20 97 06/03/19 06:41 97 Nasal Cannula 2.0 28 06/03/19 04:15 97.7 62 18 150/59 (89) 93 06/03/19 00:29 68 18 98 Nasal Cannula 2.0 28 61 16 95 06/03/19 00:19 97.9 61 20 151/63 (92) 93 06/02/19 21:32 60 155/71 06/02/19 20:26 Nasal Cannula 2.0 06/02/19 20:23 97.3 60 20 155/71 (99) 96 06/02/19 19:59 68 18 99 Nasal Cannula 2.0 28 64 20 96 06/02/19 19:59 96 Nasal Cannula 2.0 28 06/02/19 18:38 97.5 60 17 147/67 (93) 94 06/02/19 16:00 97.9 60 17 148/59 (88) 94 06/02/19 13:05 71 18 99 Nasal Cannula 2.0 28 68 18 97 06/02/19 12:00 98.9 65 19 140/53 (82) 95 Intake and Output 06/02/19 06/03/19 19:00 07:00 Intake Total 695 ml Balance 695 ml IV Total 695 ml # Voids 1 2 Height (Feet): 5 Height (Inches): 11.00 Weight (Pounds): 200 General Appearance: alert EENT: normal ENT inspection Neck: supple Cardiovascular: normal rate Respiratory/Chest: decreased breath sounds Abdomen: normal bowel sounds, non tender, soft Extremities: non-tender Jarad Miner MD Jun 03, 2019 09:10
[2019-06-03] MEDS: Heparin 5000 units/ml inj SUBQ SCH (09:54)
[2019-06-03 12:00] VITALS: BP 121/47
--- NOTE | 2019-06-03 12:24 | Infectious Diseases Prog Note ---
Assessment/Plan Problems: (1) Basal pneumonia of both lungs Assessment & Plan: confirmed on CT chest , with cough and congestion , suspect aspiration , due to pseudomonas aeruginosa . continue cefepime treatment for 3 weeks . aspiration precaution, keep HOB > 30 degree. EOT 06/22/19 (2) COPD (chronic obstructive pulmonary disease) Assessment & Plan: with exacerbation , continue antibiotics , inhalers , titrate oxygen as needed (3) Leukocytosis Assessment & Plan: suspect due to the above, with negative blood culture x 2 , less likely sepsis (4) AMOS (acute kidney injury) Assessment & Plan: continue hydration, with close monitoring of renal function , avoid nephrotoxics (5) Respiratory failure with hypoxia Assessment & Plan: suspect due to the above, V/Q scan ruled out PE as an etiology , and CT chest confirmed pneumonia ,pulmonary is following Subjective ROS Limited/Unobtainable: Yes Allergies: Coded Allergies: ACETAMINOPHEN (Verified Allergy, Unknown, 05/29/19) HYDROCODONE (Verified Allergy, Unknown, 05/29/19) Subjective He was awake and responsive to verbal commands , lying in bed, still confused and on restrains . on high flow oxygen with mask , but with less requirements , A febrile , less congested Objective Vital Signs Last 24 Hour Vital Signs Date Time Temp Pulse Resp B/P (MAP) Pulse Ox O2 Delivery O2 Flow Rate FiO2 06/03/19 09:00 Nasal Cannula 2.0 06/03/19 09:00 70 108/51 06/03/19 08:00 98.1 70 19 108/51 (70) 92 06/03/19 06:42 72 18 98 Nasal Cannula 2.0 28 77 20 97 06/03/19 06:41 97 Nasal Cannula 2.0 28 06/03/19 04:15 97.7 62 18 150/59 (89) 93 06/03/19 00:29 68 18 98 Nasal Cannula 2.0 28 61 16 95 06/03/19 00:19 97.9 61 20 151/63 (92) 93 06/02/19 21:32 60 155/71 06/02/19 20:26 Nasal Cannula 2.0 06/02/19 20:23 97.3 60 20 155/71 (99) 96 06/02/19 19:59 68 18 99 Nasal Cannula 2.0 28 64 20 96 06/02/19 19:59 96 Nasal Cannula 2.0 28 06/02/19 18:38 97.5 60 17 147/67 (93) 94 06/02/19 16:00 97.9 60 17 148/59 (88) 94 06/02/19 13:05 71 18 99 Nasal Cannula 2.0 28 68 18 97 Height (Feet): 5 Height (Inches): 11.00 Weight (Pounds): 200 General Appearance: WD/WN, other - confused, agitated HEENT: normocephalic, atraumatic, anicteric, mucous membranes moist, PERRL Respiratory/Chest: chest wall non-tender, no respiratory distress, no accessory muscle use, decreased breath sounds, crackles/rales Cardiovascular: normal peripheral pulses, normal rate, regular rhythm, no gallop/murmur, no JVD Abdomen: normal bowel sounds, soft, non tender, no organomegaly, non distended , no mass, no scars Genitourinary: normal external genitalia Extremities: no cyanosis, no clubbing Skin: no rash, no lesions Neurologic/Psychiatric: surgical resident II-XII grossly normal, alert, responsive Lymphatic: no neck adenopathy, no groin adenopathy Musculoskeletal: normal muscle bulk, no effusion Current Medications Medications (Trade) Dose Ordered Sig/Elizabeth Route PRN Reason Start Time Stop Time Status Last Admin Dose Admin Albuterol/ Ipratropium (Albuterol/ Ipratropium) 3 ml Q6HRT HHN 06/02/19 19:00 06/03/19 12:59 06/03/19 06:41 Aspirin (ASA) 81 mg DAILY ORAL 06/03/19 09:00 06/29/19 08:59 Atorvastatin Calcium (Lipitor) 20 mg BEDTIME ORAL 06/02/19 21:00 06/28/19 20:59 06/02/19 21:32 Cefepime HCl 2 gm/ Dextrose 110 ml @ 220 mls/hr Q8HR IV 06/02/19 22:00 06/08/19 11:29 06/03/19 05:00 Clopidogrel Bisulfate (Plavix) 75 mg DAILY ORAL 06/03/19 09:00 06/29/19 08:59 Dextrose (Dextrose 50%) 25 ml Q30M PRN IV Hypoglycemia 06/02/19 18:15 06/28/19 08:44 Dextrose (Dextrose 50%) 50 ml Q30M PRN IV Hypoglycemia 06/02/19 18:15 06/28/19 08:44 Docusate Sodium (Colace) 100 mg THREE TIMES A DAY ORAL 06/03/19 09:00 06/28/19 12:59 Donepezil HCl (Aricept) 10 mg DAILY ORAL 06/03/19 09:00 06/29/19 08:59 Heparin Sodium (Porcine) (Heparin 5000 units/ml) 5,000 units EVERY 12 HOURS SUBQ 06/02/19 21:00 06/28/19 08:59 06/03/19 09:54 Insulin Aspart (NovoLOG) BEFORE MEALS AND HS SUBQ 06/02/19 21:00 06/28/19 11:29 06/02/19 21:34 Ipratropium [place] (Atrovent) 500 mcg Q6H PRN HHN Shortness of Breath 06/02/19 18:15 06/03/19 18:14 Lidocaine (Lidoderm 5% PATCH) 1 patch DAILY TDERMAL 06/03/19 09:00 06/29/19 08:59 06/03/19 09:52 Lorazepam (Ativan 2mg/ml 1ml) 0.25 mg Q12H PRN IV Agitation 06/02/19 18:15 06/07/19 18:14 Metoprolol Tartrate (Lopressor) 25 mg EVERY 12 HOURS ORAL 06/02/19 21:00 06/28/19 20:59 06/02/19 21:32 Sodium Chloride 1,000 ml @ 50 mls/hr Q20H IV 06/02/19 18:15 06/28/19 11:59 06/02/19 18:43 Tamsulosin HCl (Flomax) 0.4 mg DAILY ORAL 06/03/19 09:00 06/29/19 08:59 Melina Jones M.D. Jun 03, 2019 12:24
--- NOTE | 2019-06-03 13:40 | Pulmonology Progress Note ---
Assessment/Plan Problems: (1) Basal pneumonia of both lungs (2) Dysphasia (3) Leukocytosis (4) COPD (chronic obstructive pulmonary disease) (5) AMOS (acute kidney injury) (6) Respiratory failure with hypoxia (7) Elevated WBC count (8) Failure to thrive Assessment/Plan ASSESSMENT: The patient is an 88-year-old male with a history of dementia, chronic obstructive pulmonary disease, prior sternotomy, congestive heart failure, and sick sinus syndrome, status post pacemaker, presenting with a respiratory illness, likely healthcare-associated pneumonia with acute kidney injury and dehydration. PROBLEM LIST: 1. Healthcare-associated pneumonia/PsA PNA 2. Acute hypoxemic respiratory failure secondary to above. 3. Acute kidney injury - RESOLVED 4. Dehydration. 5. Non ST-elevation myocardial infarction, likely demand ischemia. 6. Chronic obstructive pulmonary disease with acute exacerbation. 7. Hypertension. 8. Hypertensive heart disease. 9. Hyperlipidemia. 10. Diabetes type 2. 11. CAD, status post CABG and PCI. 12. History of Mobitz type II heart block and sick sinus syndrome,status post pacemaker. 13. Peripheral vascular disease. 14. History of angioedema in the past. 15. Dementia. TREATMENT PLAN: 1. Optimize pulmonary hygiene/mobilize as tolerated. 2. Titrate down FiO2 to keep saturations greater than 90%. 3. Dosku-wot-qbssc and p.r.n. bronchodilators. 4. Observe off steroids. 5. Antibiotics per ID. 6. Monitor volumes and renal function 7. Aspiration precautions, PO as able 8. DVT prophylaxis, heparin subcutaneous. 9. The patient is Full Code, continue to discuss goals of care. Subjective Allergies: Coded Allergies: ACETAMINOPHEN (Verified Allergy, Unknown, 05/29/19) HYDROCODONE (Verified Allergy, Unknown, 05/29/19) Subjective AFVSS o2 needs stable per report eating more MS waxes and wanes No cough no distress no wheezing no FC Objective Last 24 Hour Vital Signs Date Time Temp Pulse Resp B/P (MAP) Pulse Ox O2 Delivery O2 Flow Rate FiO2 06/03/19 12:00 98.1 16 121/47 (71) 97 06/03/19 09:00 Nasal Cannula 2.0 06/03/19 09:00 70 108/51 06/03/19 08:00 98.1 70 19 108/51 (70) 92 06/03/19 06:42 72 18 98 Nasal Cannula 2.0 28 77 20 97 06/03/19 06:41 97 Nasal Cannula 2.0 28 06/03/19 04:15 97.7 62 18 150/59 (89) 93 06/03/19 00:29 68 18 98 Nasal Cannula 2.0 28 61 16 95 06/03/19 00:19 97.9 61 20 151/63 (92) 93 06/02/19 21:32 60 155/71 06/02/19 20:26 Nasal Cannula 2.0 06/02/19 20:23 97.3 60 20 155/71 (99) 96 06/02/19 19:59 68 18 99 Nasal Cannula 2.0 28 64 20 96 06/02/19 19:59 96 Nasal Cannula 2.0 28 06/02/19 18:38 97.5 60 17 147/67 (93) 94 06/02/19 16:00 97.9 60 17 148/59 (88) 94 Intake and Output 06/02/19 06/03/19 19:00 07:00 Intake Total 695 ml Balance 695 ml IV Total 695 ml # Voids 1 2 General Appearance: no acute distress, cachetic HEENT: normocephalic, atraumatic, anicteric, mucous membranes moist Respiratory/Chest: chest wall non-tender, lungs clear, normal breath sounds Cardiovascular: normal peripheral pulses, normal rate, regular rhythm Abdomen: normal bowel sounds, soft, non tender, no organomegaly, no mass Extremities: no cyanosis, no clubbing, no edema Current Medications Medications (Trade) Dose Ordered Sig/Elizabeth Route PRN Reason Start Time Stop Time Status Last Admin Dose Admin Aspirin (ASA) 81 mg DAILY ORAL 06/03/19 09:00 06/29/19 08:59 Atorvastatin Calcium (Lipitor) 20 mg BEDTIME ORAL 06/02/19 21:00 06/28/19 20:59 06/02/19 21:32 Cefepime HCl 2 gm/ Dextrose 110 ml @ 220 mls/hr Q8HR IV 06/02/19 22:00 06/08/19 11:29 06/03/19 05:00 Clopidogrel Bisulfate (Plavix) 75 mg DAILY ORAL 06/03/19 09:00 06/29/19 08:59 Dextrose (Dextrose 50%) 25 ml Q30M PRN IV Hypoglycemia 06/02/19 18:15 06/28/19 08:44 Dextrose (Dextrose 50%) 50 ml Q30M PRN IV Hypoglycemia 06/02/19 18:15 06/28/19 08:44 Docusate Sodium (Colace) 100 mg THREE TIMES A DAY ORAL 06/03/19 09:00 06/28/19 12:59 Donepezil HCl (Aricept) 10 mg DAILY ORAL 06/03/19 09:00 06/29/19 08:59 Heparin Sodium (Porcine) (Heparin 5000 units/ml) 5,000 units EVERY 12 HOURS SUBQ 06/02/19 21:00 06/28/19 08:59 06/03/19 09:54 Insulin Aspart (NovoLOG) BEFORE MEALS AND HS SUBQ 06/02/19 21:00 06/28/19 11:29 06/02/19 21:34 Ipratropium [place] (Atrovent) 500 mcg Q6H PRN HHN Shortness of Breath 06/02/19 18:15 06/03/19 18:14 Lidocaine (Lidoderm 5% PATCH) 1 patch DAILY TDERMAL 06/03/19 09:00 06/29/19 08:59 06/03/19 09:52 Lorazepam (Ativan 2mg/ml 1ml) 0.25 mg Q12H PRN IV Agitation 06/02/19 18:15 06/07/19 18:14 Metoprolol Tartrate (Lopressor) 25 mg EVERY 12 HOURS ORAL 06/02/19 21:00 06/28/19 20:59 06/02/19 21:32 Sodium Chloride 1,000 ml @ 50 mls/hr Q20H IV 06/02/19 18:15 06/28/19 11:59 06/02/19 18:43 Tamsulosin HCl (Flomax) 0.4 mg DAILY ORAL 06/03/19 09:00 06/29/19 08:59 Kenny Rich MD Jun 03, 2019 13:40
--- NOTE | 2019-06-03 14:42 | Cardiac Electrophysiology PN ---
Assessment/Plan Assessment/Plan 1. NSTEMI type 2 . Due to demand ischemia in view of patient's sepsis, white count of 20,000 and renal failure with creatinine of 2.8. EF 55%. LE duplex no DVT On aspirin, Lopressor 25 bid, and Lipitor 40. Hx of CABG. 2. Status post [facility] Dm pacemaker. Interrogated and showed Nl Fx. Battery more than a year left 3. Sepsis, COPD, pneumonia and hypoxia. On Zosyn per ID DDimer was positive but VQ low probability 05/31/19 4. Advanced dementia. 5. Dysphagia, passed Swallow eval but still refusing eating. DW RN Subjective Subjective Passed swallow eval. V pacing when on tele. Off tele now DDimer was high and had VQ scan that was low probability 05/31/19 Objective Last 24 Hour Vital Signs Date Time Temp Pulse Resp B/P (MAP) Pulse Ox O2 Delivery O2 Flow Rate FiO2 06/03/19 12:00 98.1 16 121/47 (71) 97 06/03/19 09:00 Nasal Cannula 2.0 06/03/19 09:00 70 108/51 06/03/19 08:00 98.1 70 19 108/51 (70) 92 06/03/19 06:42 72 18 98 Nasal Cannula 2.0 28 77 20 97 06/03/19 06:41 97 Nasal Cannula 2.0 28 06/03/19 04:15 97.7 62 18 150/59 (89) 93 06/03/19 00:29 68 18 98 Nasal Cannula 2.0 28 61 16 95 06/03/19 00:19 97.9 61 20 151/63 (92) 93 06/02/19 21:32 60 155/71 06/02/19 20:26 Nasal Cannula 2.0 06/02/19 20:23 97.3 60 20 155/71 (99) 96 06/02/19 19:59 68 18 99 Nasal Cannula 2.0 28 64 20 96 06/02/19 19:59 96 Nasal Cannula 2.0 28 06/02/19 18:38 97.5 60 17 147/67 (93) 94 06/02/19 16:00 97.9 60 17 148/59 (88) 94 Intake and Output 06/02/19 06/03/19 19:00 07:00 Intake Total 695 ml Balance 695 ml IV Total 695 ml # Voids 1 2 Objective HEAD AND NECK: No JVD. LUNGS: Coarse rhonchi. CARDIOVASCULAR: Regular S1 and S2 with no gallop or murmur. ABDOMEN: Soft. EXTREMITIES: No pitting edema. Sunny Cunningham MD Jun 03, 2019 14:42
--- NOTE | 2019-06-03 15:08 | NUR ---
*-*DISCHARGE PLANNED*-* PATIENT IS BEING DISCHARGED BACK TO: [facility] P:[phone] F:[phone] F:[phone] RM# 115.A [facility] [id number] S/W MARGRET ETA 4PM/ 1600PM
--- NOTE | 2019-06-03 15:19 | NUR ---
SWALLOW STATUS/RE/EVALUATION: S: PATIENT CLEARED FOR ST INTERVENTION BY RN KARLO. PATIENT SEEN IN CONTEXT OF NOON MEAL. O: SKILLED DYSPHAGIA MANAGEMENT A: PATIENT IS TOLERATING HIS CURRENT DIET TEXTURE RELATIVE TO SAFETY, HOWEVER, THE GREATEST BARRIER TO SAFE/SUFFICIENT P.O. INTAKE IS THE PATIENT'S REFUSAL TO EAT/OPPOSITIONAL TO P.O. (DEMENTIA: LOSS OF APPETITE/REFUSAL TO EAT) INTAKE FOR THE LAST 3 DAYS INSUFFICIENT TO SUPPORT NUTRITION/ HYDRATION NEEDS. P: CONSIDER D/W FAMILY RE; PEG VS PALLIATIVE/COMFORT-CENTERED CARE
--- NOTE | 2019-06-03 15:49 | NUR ---
NURSE NOTES: REPORT GIVEN TO MARIS ELMORE AT [facility], AND MADE AWARE OF IV CEFEPIME 2GM Q8H X 19 DAYS. LAST DOSE WAS AT 1400HRS AND NEXT DOSE SCHEDULED FOR 2200HRS. RN INFORMED DAINA AKHTAR (SON) REGARDING DISCHARGE BACK TO [facility] AND [facility] WITH DISCHARGE.
[2019-06-03 16:00] VITALS: BP 131/52
--- NOTE | 2019-06-03 16:00 | NUR ---
NURSE NOTES: Iv access and restraints discontinued. Report given to ambulance personnel. Pt has 1 palafox shirt as belongings and given to ambulance personnel.
--- NOTE | 2019-06-04 12:44 | Discharge Summary ---
Discharge Summary Discharge Summary _ DATE OF ADMISSION: 05/29/2019 DATE OF DISCHARGE: 06/03/2019 DISCHARGED BY: Dr. Muniz REASON FOR ADMISSION: 88 years old male with past medical history of severe dementia, COPD, chronic kidney disease, history of permanent pacemaker placement resident of halfway facility but sent for evaluation due to hypoxia. Oxygen saturation was in the low 80s. Nursing facility also reported intermittent cough. No fever or chills are reported. Patient nonverbal at baseline with severe dementia unable to provide any information. Per paramedics patient was somnolent in route. Patient received 1 breathing treatment with bronchodilator without much improvement. Patient started on supplemental oxygen and admitted and presented to emergency department for further management. Upon evaluation patient was tachypneic Pulsoxymeter was 83% on room air. Laboratory work-up revealed leukocytosis hemoglobin 10.2 hematocrit 32.3. ABG revealed and supplemental oxygen were stable. BUN 29, creatinine 2.8. Glucose 127. proBNP 2241. Albumin 2.3. Troponin 0 0.066. Urinalysis revealed evidence of urinary tract infection +2 protein. Chest x-ray demonstrated evidence of possible posterior left lateral hemidiaphragm, parenchymal and or pleural disease of the left lung base no acute process otherwise. Sclerotic lesion of the proximal humerus, most likely a bone island less likely osteoblastic metastasis. Patient was admitted for COPD exacerbation respiratory failure possible sepsis. CONSULTANTS: laboratory coordinator Dr. Matias pulmonary Dr. Rich ID specialist Dr. Jones GI specialist Dr. Miner [facility] COURSE: Patient initially admitted to telemetry floor. Supplemental oxygen provided and titrated to keep oximetry above 90%. Patient initially was on nonrebreathing mask in ED, then downgraded to simple mask when transferred to the floor and then was able to be weaned down to nasal cannula. Nebulizing treatment with bronchodilator [id number] and as needed provided. Patient started on the IV steroids with gradual tapering and empiric antibiotic. Volumes and renal parameters were closely monitored. Aspiration precaution maintained. Patient initially was n.p.o. Swallow evaluation was done when patient became more alert. DVT prophylaxis provided. CT of the chest revealed bilateral basilar infiltrates and atelectasis. Antibiotic provided as per ID specialist recommendation. Sputum culture revealed Pseudomonas aeruginosa. ID specialist recommended continue antibiotics at the facility to complete the course. End of treatment 06/22/2019. Blood cultures were negative. Influenza swab was negative. Noted elevated D dimer. Venous duplex bilateral lower extremity revealed no evidence of acute DVT. VQ scan revealed low probability for pulmonary emboli. Serial troponin were closely monitored; second troponin 0.086 , and the last troponin 0.082. Echocardiogram demonstrated preserved ejection fraction of 50 to 55% with no evidence of left ventricular hypertrophy. No evidence of wall motion abnormality to the extent visualized. Right ventricular systolic pressure of 30. Lipid panel was stable. Per laboratory coordinator , patient had NSTEMI type II due to demand ischemia in view of patient's sepsis and renal failure. Patient was continued on antiplatelet therapy with aspirin , statin and beta- ana. Pacemaker interrogated and showed normal functioning. Battery left for more than a year. Patient passed swallow evaluation, but refused to eat. GI specialist recommended oral diet with texture as recommended by speech therapist with aspiration precautions, as tolerated . Patient may need a tube feeding. Hemoglobin and hematocrit were closely monitored with goal to keep hemoglobin above 7. Prior to discharge hemoglobin 9.4 hematocrit 27.7. Renal parameters and electrolytes were closely monitored. Electrolytes corrected as needed and nephrotoxins were avoided. Creatinine from 2.8 down to 1.1 and BUN from 29 down to 22. Acute kidney injury was likely due to dehydration and resolved. IV steroids tapered and stopped. Leukocytosis resolved. No fevers. Pulse oximetry on 2 L of oxygen prior to discharge 98%. Patient clinically stabilized and was ready for discharge to halfway facility. Patient to continue antibiotic to complete the course , as outlined in medication reconciliation list. FINAL DIAGNOSES: Acute hypoxemic respiratory failure secondary to pneumonia Probably sepsis Healthcare associated pneumonia with Pseudomonas aeruginosa Elevated troponin Acute on chronic kidney disease Dehydration COPD with acute exacerbation NSTEMI type II due to demand ischemia in view of patient's sepsis and renal failure Status post [place] [employer] pacemaker Hypertension Hypertensive heart disease Hyperlipidemia Diabetes mellitus type 2 Coronary artery disease with history of CABG and PCI History of Mobitz type II heart block and sick sinus syndrome status post pacemaker Peripheral vascular disease History of angioedema Advanced dementia Dysphagia Anemia DISCHARGE MEDICATIONS: See Medication Reconciliation list. DISCHARGE INSTRUCTIONS: Patient was discharged to the halfway facility. Follow up with medical doctor at the facility. I have been assigned to dictate discharge summary for this account. I was not involved in the patient's management. Alanis Clayton NP Jun 04, 2019 12:44
== END 2019-06-03 17:10 | DRG 871 ==
LOC: EDBD 03:50 → EDUNIT# 03:50 → EMR 04:22 → 2E 04:55 → EDBEDREQ 05:50 → 4E 06-02 18:09
DX: A41.9 Sepsis, unspecified organism (principal); J96.01 Acute respiratory failure with hypoxia; J15.1 Pneumonia due to Pseudomonas; I21.A1 Myocardial infarction type 2; J44.1 Chronic obstructive pulmonary disease with (acute) exacerbation; N17.9 Acute kidney failure, unspecified; J44.0 Chronic obstructive pulmonary disease with (acute) lower respiratory infection; F03.90 Unspecified dementia, unspecified severity, without behavioral disturbance, psychotic disturbance, mood disturbance, and anxiety; I13.10 Hypertensive heart and chronic kidney disease without heart failure, with stage 1 through stage 4 chronic kidney disease, or unspecified chronic kidney disease; E11.22 Type 2 diabetes mellitus with diabetic chronic kidney disease; N18.9 Chronic kidney disease, unspecified; Z95.0 Presence of cardiac pacemaker; I49.5 Sick sinus syndrome; I25.10 Atherosclerotic heart disease of native coronary artery without angina pectoris; Z95.1 Presence of aortocoronary bypass graft; Z95.5 Presence of coronary angioplasty implant and graft; E86.0 Dehydration; I73.9 Peripheral vascular disease, unspecified; R13.10 Dysphagia, unspecified; R62.7 Adult failure to thrive; Z68.27 Body mass index [BMI] 27.0-27.9, adult; R63.0 Anorexia; D64.9 Anemia, unspecified
CPT/HCPCS: 36415; 36600; 70450; 71045; 71250; 72131; 72192; 74018; 78579; 78580; 80048; 80053; 80061; 81003; 82140; 82803; 82962; 83880; 84484; 85007; 85025; 85379; 86710; 87040; 87070; 87081; 87181; 87205; 93005; 93306; 93970; 94640; 96365; 96368; 96375; 99285; A9503; J1815; J7030; J7620